=== PATIENT | female | born 1940 | race Caucasian/White ===

== ENCOUNTER 2020-01-07 18:53 | Emergency (ER) | payer MEDICARE, BC, SELFPAY ==
[2020-01-07 19:08] VITALS: BP 149/67; PULSE 82; RESP 20; TEMP 36.9; O2SAT 100
--- NOTE | 2020-01-07 19:34 | ED.GENADULT ---
HPI - General Adult General Chief complaint: Wound/Laceration Stated complaint: wasp sting Time Seen by Provider: 01/07/20 19:00 Source: patient Mode of arrival: ambulatory Limitations: no limitations History of Present Illness HPI narrative: Patient presents for evaluation of his left hand and distal left forearm after being stung by a wasp around 1600 today. Swelling in the fingers started immediately after being stung by the wasp. Since that time swelling has migrated up through the proximal left forearm. She denies any fever, chills, nausea, vomiting, difficulty breathing. She states she has chronic problems swallowing as she had resection of her tongue secondary to cancer. She currently has a G-tube. She states she was stung by a wasp several weeks ago and did not have a significant overreaction. She has not taken any medications to assist with her symptoms. She is not diabetic. She is right hand dominant. Denies loss of ROM. She describes the pain as sore and without numerical rating ascribed. Related Data Home Medications Medication Instructions Recorded Confirmed metoprolol succinate [Toprol XL] 10 mg PO DAILY 01/07/20 01/07/20 Allergies Allergy/AdvReac Type Severity Reaction Status Date / Time No Known Allergies Allergy Verified 01/07/20 18:59 Review of Systems Review of Systems: Narrative: CONSTITUTIONAL: Denies fever, chills, or sweats. EYES: Denies visual changes, redness, or discharge. ENT: Denies rhinorrhea, congestion, sore throat, or otalgia. CARDIOVASCULAR: Denies chest pain, palpitations, or edema. RESPIRATORY: Denies cough or dyspnea. GASTROINTESTINAL: Denies abdominal pain, nausea, vomiting, or diarrhea. GENITOURINARY: Denies dysuria or hematuria. SKIN: Denies rash or itching. Reports erythema to left hand MUSCULOSKELETAL: Denies back pain, joint pain. Reports left hand pain and swelling. NEUROLOGIC: Denies headache, numbness, dizziness, or weakness. PSYCHIATRIC: Denies anxiety or depression. [facility] Past Medical History Medical History (Updated 01/07/20 @ 19:41 by Reddy Carlton, LESLI, ) Cancer of tongue Hypertension Uses feeding tube Surgical History Surgical History History of intravascular stent placement Family History Family History Father Family history of cardiovascular disease Mother Family history of lung cancer Social History Social History Smoking status: Former smoker Alcohol intake: current Gender identity (if verbalized by the patient): Female Exam Narrative: Exam Narrative: GENERAL: Well-appearing, well-nourished, and in no acute distress. HEAD: Normocephalic, atraumatic. EYES: PERRLA and EOMI. ENT: Nares clear, no rhinorrhea or epistaxis. Mucous membranes moist. Oropharynx without tonsillar hypertrophy exudate or other lesions. Bilateral TMs pearly wilkins nonbulging NECK: Supple. No adenopathy or masses. No carotid bruits or JVD CHEST: Clear to auscultation. No respiratory distress. No wheezes rales or rhonchi HEART: Regular rate and rhythm. No murmur heard. Normal peripheral pulses. ABDOMEN: Soft, nontender, nondistended, normal active bowel sounds. EXTREMITIES: Normal range of motion. Trace nonpitting edema noted to dorsal aspect of the left hand and all digits of the left hand, extending through the distal 1/3 of left forearm SKIN: Warm, dry, no rash. Mild erythema noted to left hand and distal left forearm NEURO: No focal deficits. Alert and oriented x3. PSYCH: Normal mood and affect. Course Vital Signs Vital signs: Vital Signs Temperature 36.9 C 01/07/20 19:08 Pulse Rate 82 01/07/20 19:08 Respiratory Rate 20 01/07/20 19:08 Blood Pressure 149/67 H 01/07/20 19:08 Pulse Oximetry 100 01/07/20 19:08 Temperature 36.9 C 01/07/20 19:08 P
[2020-01-07] MEDS: methylPREDNISolone SOD SUCC 125 MG VIAL IM (19:39)
== END 2020-01-07 19:46 | disposition home or self-care (01) ==
PROVIDERS: Emergency Provider Nurse Practitioner; PCP Nurse Practitioner Family
DX: T63.461A Toxic effect of venom of wasps, accidental (unintentional), initial encounter (principal); Z87.891 Personal history of nicotine dependence; I10 Essential (primary) hypertension; Z85.810 Personal history of malignant neoplasm of tongue; Z93.1 Gastrostomy status
CPT/HCPCS: 96372; 99213; G0463; J2930

== ENCOUNTER 2020-07-12 22:33 | Inpatient (IN) | payer MEDICARE, BC, SELFPAY ==
--- NOTE | ~2020-07-12 | MR_ITS ---
EXAMINATION: MR MRCP wo/w con/w 3D wo ind DATE: 07/13/2020 15:14 INDICATION: Recurrent pancreatitis. Abdominal pain. TECHNIQUE: Magnetic resonance imaging (MRI) of the abdomen was performed without and with 10 mL Multi Mani intravenous contrast. Sequences included coronal T2-weighted FS FSE, coronal T2-weighted FSE, a xial T1-weighted LAVA, coronal FS FIESTA, axial dual-echo T1-weighted SPGR, coronal lava-FLEX, sagitt al T2-weighted FSE, axial T2-weighted FSE, and axial DWI. Thick-slab T2-weighted FSE images were obta ined for magnetic resonance cholangiopancreatography (MRCP). Maximum intensity projection 3-D reconst ructions of the volumetric data were created by the technologist. Postcontrast sequences included cor onal LAVA-flex and time course of axial T1-weighted LAVA. COMPARISON: CT abdomen and pelvis 07/12/2020 FINDINGS: ABDOMEN MRI: There are small pleural effusions. The liver is normal. The gallbladder is normal in siz e. The spleen is normal. The pancreas enhances throughout. The pancreatic duct is dilated. There is e xtensive edema and free fluid in the retroperitoneum. These findings are consistent with pancreatitis . There is a small volume of ascites. The adrenal glands are normal. There are cysts in the kidneys m easuring up to 11 mm on the right. There are no dilated loops of bowel. The gastrojejunostomy tube is noted. There are no pathologically enlarged lymph nodes. ABDOMEN MRCP: The common duct is normal and measures 7 mm. No choledocholithiasis. IMPRESSION: 1. Worsened acute interstitial pancreatitis. 2. Worsened small pleural effusions. 3. Worsened small volume of ascites. Reviewed, dictated and finalized at location A.
--- NOTE | ~2020-07-12 | US_ITS ---
EXAMINATION: US abdomen limited EXAM DATE: 07/15/2020 08:27 INDICATION: Acute pancreatitis. TECHNIQUE: Multiple grayscale and Doppler images of the abdomen right upper quadrant were obtained (b y a technologist who performed the scan) and subsequently reviewed. Correlation is made to CT 07/13/19. FINDINGS: The pancreatic head and body are normal in appearance. The pancreatic tail is not visualized. Please note that uncomplicated acute pancreatitis typically has no ultrasound findings. The liver has marija l echogenicity and contour. There are no focal liver lesions identified. There is no evidence of i ntrahepatic biliary duct dilation. Portal venous flow was seen in the hepatopedal, normal direction and has normal Doppler waveform. No right-sided hydronephrosis. Common bile duct measures 7 mm, which is normal for age. The gallbladder wall is normal in thickness, with expected amount of distention. There is trace pericholecystic fluid. There are poorly calcifie d gallstones. Technologist performing exam reports patient did not demonstrate sonographic Hudson's sign. Please note that this sign is less reliable in patients who have received pain medication. IMPRESSION: Cholelithiasis, trace pericholecystic fluid likely reactive from pancreatitis. Reviewed, dictated and finalized at location A. IMPRESSION: Cholelithiasis, trace pericholecystic fluid likely reactive from pa ncreatitis.
--- NOTE | ~2020-07-12 | CT_ITS ---
EXAMINATION: CT abdomen pelvis w con DATE: 07/13/2020 00:06 INDICATION: Abdominal pain. Pancreatitis. TECHNIQUE: Computed tomography (CT) of the abdomen and pelvis was performed with 100 mL Omnipaque 350 intravenous contrast. Automated exposure control and iterative reconstruction technique were employe d. The dose-length product was 163.34 mGy-cm. COMPARISON: CT abdomen and pelvis 10/28/2018 FINDINGS: The visualized portions of the lung bases demonstrate mild atelectasis. There is a trace ri ght pleural effusion. The heart size is normal. There are coronary artery calcifications. No pericard ial effusion. The liver and gallbladder are normal. There is a 4 mm lesion in the spleen, likely marti gn. There is edema in the head of the pancreas. The pancreatic duct is mildly dilated. There is fat s tranding and free fluid around the pancreas. These findings are consistent with pancreatitis. The adr enal glands are normal. There is cortical thinning of the kidneys. There are cysts in the kidneys gina suring up to 8 mm on the right. There is a gastrojejunostomy tube in expected position. There are no dilated loops of bowel. The appendix is not visualized. There are no pathologically enlarged lymph no bobbi. There is trace pelvic ascites. There is moderate lumbar spondylosis. There is dextroscoliosis of thoracolumbar spine. IMPRESSION: 1. Acute interstitial pancreatitis. Reviewed, dictated and finalized at location A. FOREMAN
[2020-07-12 22:41] VITALS: BP 172/54; PULSE 58; RESP 16; TEMP 36.4; O2SAT 96
--- NOTE | 2020-07-12 23:02 | ED.ABDPAIN ---
HPI - Abdominal Pain General Chief Complaint: Abdominal Pain <Antonio Thomas MD - Last Filed: 07/13/20 00:08> Stated Complaint: abd pain <Antonio Thomas MD - Last Filed: 07/13/20 00:08> Time Seen by Provider: 07/12/20 22:57 <Antonio Thomas MD - Last Filed: 07/13/20 00:08> Source: patient <Antonio Thomas MD - Last Filed: 07/13/20 00:08> Mode of arrival: EMS <Antonio Thomas MD - Last Filed: 07/13/20 00:08> Limitations: clinical condition <Antonio Thomas MD - Last Filed: 07/13/20 00:08> History of Present Illness HPI narrative: 80-year-old female Somewhat limited historian Patient has a history of head neck cancer and because of swallowing problems has a feeding tube She complains of diffuse pains across her mid abdomen starting today She vomited brownish material 3 times without relief She does not have a fever she has not bloated or distended she does not have diarrhea or constipation, or any urinary symptoms Patient states it is the same thing as last time Last time she was here was apparently for a wasp sting at the time before that was pancreatitis <Antonio Thomas MD - Last Filed: 07/13/20 00:08> Related Data Home Medications: Home Medications Medication Instructions Recorded Confirmed metoprolol succinate [Toprol XL] 10 mg PO DAILY 01/07/20 01/07/20 <Antonio Thomas MD - Last Filed: 07/13/20 00:08> Allergies/Adverse Reactions: Allergies Allergy/AdvReac Type Severity Reaction Status Date / Time No Known Allergies Allergy Verified 07/12/20 22:49 <Antonio Thomas MD - Last Filed: 07/13/20 00:08> Review of Systems Review of Systems: All systems reviewed & are unremarkable except as noted in HPI and below <Antonio Thomas MD - Last Filed: 07/13/20 00:08> Constitutional: Constitutional: Denies chills, Reports fatigue, Denies fever(s), Denies headache(s) and Reports weakness <Antonio Thomas MD - Last Filed: 07/13/20 00:08> Eyes: Eyes: Reports no additional eye complaints and Denies change in vision <Antonio Thomas MD - Last Filed: 07/13/20 00:08> ENT: Reports dysphagia, Denies headache(s), Denies epistaxis and Denies nasal congestion <Antonio Thomas MD - Last Filed: 07/13/20 00:08> Comments: Chronic hoarseness <Antonio Thomas MD - Last Filed: 07/13/20 00:08> Cardiovascular: Cardiovascular: Denies chest pain, Denies leg edema, Denies palpitations and Denies dyspnea <Antonio Thomas MD - Last Filed: 07/13/20 00:08> Respiratory: Respiratory: Denies cough, Denies dyspnea and Denies wheezing <Antonio Thomas MD - Last Filed: 07/13/20 00:08> Gastrointestinal: Gastrointestinal: Reports abdominal pain, Denies diarrhea, Reports nausea and Reports vomiting <Antonio Thomas MD - Last Filed: 07/13/20 00:08> Genitourinary: Genitourinary: Denies hematuria, Denies urinary frequency and Denies dysuria <Antonio Thomas MD - Last Filed: 07/13/20 00:08> Musculoskeletal: Musculoskeletal: Denies deformity, Denies arthralgias, Denies joint swelling, Denies muscle weakness and Denies numbness <Antonio Thomas MD - Last Filed: 07/13/20 00:08> Integumentary/Breasts: Skin/Breast: Denies rash and Denies wounds <Antonio Thomas MD - Last Filed: 07/13/20 00:08> Neurologic: Denies headache(s), Denies focal weakness, Denies numbness and Denies weakness <Antonio Thomas MD - Last Filed: 07/13/20 00:08> Psychiatric: Psychiatric: Reports no additional psychiatric complaints <Antonio Thomas MD - Last Filed: 07/13/20 00:08> Endocrine: Endocrine: Denies fatigue and Denies palpitations <Antonio Thomas MD - Last Filed: 07/13/20 00:08> Hematologic/Lymphatic: Hematologic/Lymphatic: Denies easy bleeding and Denies easy bruising <Antonio Thomas MD - Last Filed: 07/13/20 00:08> [facility] Past Medical History Medical History: Medical History (Updated 07/13/20 @ 01:52 by Sly Arce MD) Cancer of tongue Hypertension Uses feeding tube <Antonio Thomas,
[2020-07-12 23:21] LABS: Basophils Percent Auto 0.2 % (0.2-1.2); Eosinophils Absolute Auto 0.1 K/mm3 (0-0.3); Eosinophils Percent Auto 0.4 % (0-4.4); Hematocrit 47.3 % (37.0-47.0); Hemoglobin 15.2 g/dL (12.0-15.0); Immature Granulocyte Absolute 0.09 K/mm3 (0.00-0.031); Immature Granulocyte Percent A 0.4 % (0-0.5); Immature Platelet Fraction Pct 12.9 % (0.9-11.2); Lymphocytes Absolute Auto 0.56 K/mm3 (0.9-3.2); Lymphocytes Percent Auto 2.5 % (18.3-44.2); Mean Corpuscular HGB Conc 32.1 g/dl (32-36); Mean Corpuscular Hemoglobin 27.6 pg (26-34); Mean Platelet Volume 11.5 fl (7.4-10.4); Monocytes Percent Auto 4.4 % (2.6-8.5); Neutrophils Absolute Auto 20.9 K/mm3 (1.3-6.7); Neutrophils Percent Auto 92.1 % (45.5-73.1); Platelet Count Result 290 k/mm3 (150-375); Red Cell Distribution Width 12.2 % (11.5-14.5); White Blood Count 22.7 K/mm3 (4.5-10.0)
[2020-07-12 23:26] VITALS: BP 109/94; PULSE 59; RESP 16; O2SAT 99
[2020-07-12 23:26] LABS: Add Urine Microscopic? YES; Appearance Urine Cloudy (Clear); Bacteria Urine Trace /hpf; Bilirubin Urine Negative (Negative); Color Urine Amber (Yellow); Glucose Urine UA Negative (Negative); Ketones Urine Trace mg/dL (Negative); Leukocyte Esterase Ur 3+ LEU/UL (Negative); Mucus Urine Rare /lpf; Nitrate Urine Negative (Negative); Protein Urine 2+ mg/dL (Negative); Specific Grav Ur 1.028 (1.001-1.035); Squamous Epithelial Cell Urine Many /hpf (Few); Urobilinogen Urine Negative mg/dL (<2.0); WBC Urine 51-75 /hpf
[2020-07-12 23:31] LABS: Alanine Aminotransferase 14 U/L (4-35); Albumin Level 4.4 g/dL (3.5-5.1); Alkaline Phosphatase 105 U/L (38-126); Anion Gap 5 mmol/L (8-16); Aspartate Amino Transferase 39 U/L (14-36); Bilirubin,Total 0.6 mg/dL (0.2-1.3); Blood Urea Nitrogen 22 mg/dL (7-17); Calcium 9.2 mg/dL (8.4-10.2); Carbon Dioxide 32 mmol/L (22-30); Chloride 101 mmol/L (98-107); Estimated CRCL calculation 42 ml/min; Estimated Glomerular Filt Rate > 60; Glucose 150 mg/dL (65-105); Potassium 4.3 mmol/L (3.4-5.0); Sodium 138 mmol/L (137-145)
[2020-07-12] MEDS: fentaNYL CITRATE INJ (*CRX) 100 MCG/2 ML VIAL 50 MCG IV PUSH (23:47)
[2020-07-12] MEDS: BELLADONNA ALK/PHENOB ELIX 10 ML, MAG HYDROX/ALUMINUM HYD/SIMETH 30 ML, LIDOCAINE HCL 2... PO (23:47)
[2020-07-12 23:54] LABS: Blood Urine Negative (Negative)
[2020-07-13] VITALS (20 sets, daily range): BP systolic 126–162; BP diastolic 42–78; PULSE 60–79; RESP 9–21; TEMP 36.1–37; O2SAT 91–100; BMI 20.9
[2020-07-13 00:22] LABS: Lipase > 40000 U/L (23-300)
[2020-07-13] MEDS: LACTATED RINGERS 1,000 ML 999 ML IV CONT (01:23)
[2020-07-13] MEDS: HYDROmorphone HCL INJ (*CRX) 1 MG/ML SYR IV PUSH (01:40)
--- NOTE | 2020-07-13 03:51 | PM.IMHP ---
H&P: HPI History of Present Illness Date/Time: 07/13/20 03:51 Chief Complaint: abdominal pain Narrative: This is a 80 year old female with known history of previous tongue cancer who is known to have a PEG tube who normally consumes 4-5 Ensures daily and tonight presented to the hospital with a complaint of diffuse abdominal pain since yesterday afternoon. Associated symptoms included nausa and #3 episodes of vomiting. The patient has a history of previous pancreatitis. She denies any extensive history of alcoholism. The [facility] and found to have an elevated lipase of >40,[address] abd/pelvis demonstrated.... The patient can't tell me the cause of her previous pancreatitis episode. She does mention that about 2 weeks ago she had similar abdominal pain which resolved on its own. She denies any recent abdominal trauma, fever, chills, coughing, headache, chest pain, palpitations, dysuria, hematuria, diarrhea or LE swelling. No other complaints. Review of Systems Review of Systems: All systems reviewed & are unremarkable except as noted in HPI and below PMFSH Past Medical History Medical History Abdominal pain Abnormal findings on imaging of biliary tract Cancer of tongue Hypertension Uses feeding tube Surgical History Surgical History History of intravascular stent placement PEG (percutaneous endoscopic gastrostomy) status Family History Family History Father Family history of cardiovascular disease Mother Family history of lung cancer Social History Social History Smoking status: Former smoker Alcohol intake: never Substance use: never Substance use type: does not use Gender identity (if verbalized by the patient): Female Spiritual care concerns: No Meds Home Medications and Allergies Home Medications Medication Instructions Recorded Confirmed Type aspirin [Adult Aspirin EC Low 81 mg PO DAILY 07/13/20 07/13/20 History Strength] metoprolol succinate 25 mg PO DAILY 07/13/20 07/13/20 History zolpidem [Ambien] 5 mg PO HS PRN 07/13/20 07/13/20 History Allergies Allergy/AdvReac Type Severity Reaction Status Date / Time No Known Allergies Allergy Verified 07/14/20 00:51 Vital Signs Vital Signs - 24 hr 07/12/20 22:41 07/12/20 23:26 07/13/20 00:17 Temperature 36.4 C L 36.4 C L Pulse Rate 58 L 59 L Respiratory Rate 16 16 Blood Pressure 172/54 H 109/94 H Pulse Oximetry 96 99 07/13/20 01:28 07/13/20 02:10 07/13/20 03:36 Temperature 36.4 C L Pulse Rate 65 67 Respiratory Rate 12 17 Blood Pressure 162/59 H 140/58 L Pulse Oximetry 99 95 Exam Const: General: cooperative, alert, awake, acute distress mild and ill appearing Nutritional Appearance: well nourished Orientation/consciousness: patient oriented x3 HENMT: Head: normal to inspection General nose exam: Normal external nose present Face and sinus: normal facial exam Mouth: Yes Normal oral and palatal mucosa present and Yes oropharynx normal Eyes: Pupils: Equal, round and reactive pupils present EOM: EOMs intact bilaterally Neck: Neck: supple and no JVD Thyroid: thyroid normal Lymphatic: lymphadenopathy not noted Resp: Effort & Inspection: normal respiratory effort Auscultation: clear to auscultation bilaterally Cardio: Rate: regular rate Rhythm: regular rhythm Heart sounds: no murmurs GI: Inspection: normal to inspection and other (PEG tube in place++ ) GI Palp: Yes abdominal tenderness (Diffuse tenderness w/ palpation++ ) Auscultation: normal bowel sounds Rectal Exam: deferred Skin: General skin exam: normal color and no rashes or lesions noted Neuro: General: patient oriented x3 Cranial nerves: Yes CN's II-XII intact bilaterally and Yes Equal
[2020-07-13] MEDS: HYDROmorphone HCL INJ (*CRX) 1 MG/ML SYR 0.5 MG IV PUSH ×4 (04:07→21:12)
--- NOTE | 2020-07-13 04:49 | ADMGEN ---
This patient, Darcy Bonilla, was admitted to 2 Medical Room 253- @ 0445. Patient/family oriented to hospital policies and general routines including ID bracelet, bed and alarms, visiting hours, pain management, procedures, bathroom and other care routines, personal items, smoking policy, room service/diet, and visiting hours. Information on how to activate the Rapid Response Team has been discussed. Patient/Family are encouraged to report perceived risks to care and to ask questions if they do not understand what they are told or what they should do.
[2020-07-13] MEDS: SODIUM CHLORIDE 0.9% IV 1,000 ML 125 ML IV CONT (05:21)
[2020-07-13 05:48] LABS: Basophils Percent Auto 0.1 % (0.2-1.2); Eosinophils Percent Auto 0.1 % (0-4.4); Hematocrit 40.2 % (37.0-47.0); Hemoglobin 13.2 g/dL (12.0-15.0); Immature Granulocyte Absolute 0.07 K/mm3 (0.00-0.031); Immature Granulocyte Percent A 0.3 % (0-0.5); Lymphocytes Absolute Auto 0.61 K/mm3 (0.9-3.2); Mean Corpuscular HGB Conc 32.8 g/dl (32-36); Mean Corpuscular Hemoglobin 28.1 pg (26-34); Mean Corpuscular Volume 85.7 fl (80-100); Mean Platelet Volume 11.5 fl (7.4-10.4); Monocytes Absolute Auto 0.8 K/mm3 (0.1-0.6); Monocytes Percent Auto 4.1 % (2.6-8.5); Neutrophils Absolute Auto 18.6 K/mm3 (1.3-6.7); Neutrophils Percent Auto 92.4 % (45.5-73.1); Platelet Count Result 339 k/mm3 (150-375); Red Blood Count 4.69 M/mm3 (4.2-5.4); Red Cell Distribution Width 12.3 % (11.5-14.5); White Blood Count 20.2 K/mm3 (4.5-10.0)
[2020-07-13 06:00] LABS: Anion Gap 3 mmol/L (8-16); Blood Urea Nitrogen 20 mg/dL (7-17); Calcium 8.1 mg/dL (8.4-10.2); Carbon Dioxide 30 mmol/L (22-30); Chloride 102 mmol/L (98-107); Estimated CRCL calculation 49 ml/min; Estimated Glomerular Filt Rate > 60; Glucose 136 mg/dL (65-105); Magnesium 1.8 mg/dL (1.6-2.3); Potassium 4.3 mmol/L (3.4-5.0); Sodium 135 mmol/L (137-145)
[2020-07-13 06:02] LABS: Cholesterol 207 mg/dL (0-200); HDL Direct 62 mg/dL; Triglycerides 143 mg/dL (<150)
[2020-07-13 06:13] LABS: LDL Cholesterol Direct 111 mg/dL
[2020-07-13 06:29] LABS: Lipase 11569 U/L (23-300)
--- NOTE | 2020-07-13 12:47 | WPDGICN ---
Assessment and Plan Assessment and plan (1) Acute pancreatitis: Qualifiers: Acute pancreatitis complication: unspecified Pancreatitis type: other Qualified Code(s): K85.80 - Other acute pancreatitis without necrosis or infection Code(s): K85.90 - Acute pancreatitis without necrosis or infection, unspecified Status: Acute Assessment and Plan: npo for now, trend liver enzymes will get MRCP to assess pancreas and also biliary system, previous hospitalization had GB sludge which could have been reason of pancreatitis ask surgery to see (2) Leukocytosis: Code(s): D72.829 - Elevated white blood cell count, unspecified Status: Acute Assessment and Plan: probably reactive from pancreatitis but also dirty urine and started on iv anbitiocs by primary (3) Nausea and vomiting in adult: Code(s): R11.2 - Nausea with vomiting, unspecified Status: Acute Assessment and Plan: improved (4) Cancer of tongue: Code(s): C02.9 - Malignant neoplasm of tongue, unspecified Status: Chronic Assessment and Plan: patient says that last 2 months did not have to use g-tube probably I can remove it as outpatient after acute pancreatitis resolves (5) Hypertension: Code(s): I10 - Essential (primary) hypertension Status: Chronic (6) PEG (percutaneous endoscopic gastrostomy) status: Code(s): Z93.1 - Gastrostomy status Status: Acute (7) Abnormal urinalysis: Code(s): R82.90 - Unspecified abnormal findings in urine Status: Acute Assessment and Plan: awaiting culture, on abx GI Consult Note Consult date/time: 07/13/20 12:47 Reason for consult: recurrent pancreatitis HPI: Darcy Bonilla is a 80 year old female with history of previous tongue cancer ~ 2 years ago s/p surgery and radiation, she has a PEG tube since then but says that last 2 months did not have to use it as she is drinking ensure by mouth. She also had pancreatitis 2019 admitted here, imaging reviewed and showed GB sludge in ultrasound and distended GB by CT scan, denies alcohol use and previous TG level normal. She came here with new onset of diffuse moderate abdominal pain with associated nausea and vomiting. Blood work showed lipase of >40,[address] abd/pelvis demonstrated normal liver and GB, acute interstitial pancreatitis, bili and alk phosp normal. She was admitted to hospital and feeling better now. She also is asking to have g-tube removed at some point. Review of Systems Constitutional: Constitutional: Denies chills Eyes: Eyes: Reports no additional eye complaints ENT: Reports system reviewed and no additional complaints, except as documented Cardiovascular: Cardiovascular: Reports no additional cardiovascular complaints Respiratory: Respiratory: Reports no additional respiratory complaints Gastrointestinal: Gastrointestinal: Reports abdominal pain, Reports nausea and Reports vomiting Genitourinary: Genitourinary: Denies flank pain Neurologic: Reports system reviewed and no additional complaints, except as documented Psychiatric: Psychiatric: Reports no additional psychiatric complaints [facility] Past Medical History Medical History (Updated 07/13/20 @ 12:57 by Toby Roberts MD) Cancer of tongue Hypertension Uses feeding tube Surgical History Surgical History (Updated 07/13/20 @ 12:57 by Toby Roberts MD) History of intravascular stent placement PEG (percutaneous endoscopic gastrostomy) status Family History Family History Father Family history of cardiovascular disease Mother Family history of lung cancer Social History Social History Smoking status: Former smoker Alcohol intake: never Substance use: never Substance use type: does not use Gender identity (if verbalized by the patien
--- NOTE | 2020-07-13 14:09 | PM.IMPN ---
Progress Note: A&P Assessment and Plan (1) Acute pancreatitis: Qualifiers: Acute pancreatitis complication: unspecified Pancreatitis type: other Qualified Code(s): K85.80 - Other acute pancreatitis without necrosis or infection Code(s): K85.90 - Acute pancreatitis without necrosis or infection, unspecified Status: Acute Assessment and Plan: Unclear etiology as TG WNL, no excessive alcohol intake. Possibly 2/[address] Roberts consulted and appreciate recommendations. He has consulted Dr. Grace given GB sludge on US in 10/2018. MRCP ordered as well Continue NPO, bowel rest Continue IV hydration Pain control w/ IV narcotic medications. Advance diet when clinically improving. Monitor CMP/lipase Appreciate recommendations from GI and General Surgery Monitor closely (2) Abnormal urinalysis: Code(s): R82.90 - Unspecified abnormal findings in urine Status: Acute Assessment and Plan: UA suggesting UTI. Empiric Rocephin started in ED. Patient has no urinary symptoms, although has an significant leukocytosis Continue IV ceftriaxone Await UCx results; tailor antibiotics to culture (3) Leukocytosis: Code(s): D72.829 - Elevated white blood cell count, unspecified Status: Acute Assessment and Plan: Secondary to acute pancreatitis and possible UTI. Monitor CBCd. Continue empiric treatment for UTI (4) Dehydration: Code(s): E86.0 - Dehydration Status: Acute Assessment and Plan: Continue IV hydration until tolerating diet (5) Hypertension: Code(s): I10 - Essential (primary) hypertension Status: Chronic Assessment and Plan: BP 150s sys; home meds held for now Monitor blood pressure. PRN IV hydralazine w/ parameters ordered. (6) Cancer of tongue: Code(s): C02.9 - Malignant neoplasm of tongue, unspecified Status: Chronic Assessment and Plan: stable. Subjective Date/time seen: 07/13/20 14:09 Interval history: Patient is a 80 year old female with known history of previous tongue cancer who is known to have a PEG tube who normally consumes 4-5 Ensures daily, previous episode of pancreatitis, and HTN who is seen in follow up for acute pancreatitis. Patient states she feels about the same, if not slightly better today; she just had IV pain medication. Pain is diffuse and radiates to her back. She has some nausea but no vomiting today. She is expecting to go to get an MRCP sometime soon. No other complaints. Denies f/c/s, cp/palpitations, sob/cough, dysuria, hematuria, cloudy urine, calf pain/swelling. Review of Systems Review of Systems: All systems reviewed & are unremarkable except as noted in HPI and below Exam Narrative: Exam Narrative: General: Patient resting supine in bed appearing to be in mild distress; wincing every once in awhile HEENT: Normocephalic, EOMI, oral mucosa moist. Cardiovascular: Rate and rhythm are regular. No notable murmur, rub, or gallop. Respiratory: Lungs clear to auscultation anterolateral ruiz. Non-labored breathing. Abdomen: guarding, diffuse tenderness to light palpation, non-distended, bowel sounds present. PEG tube noted. Extremities: Peripheral pulses intact. No edema. NTTP b/l calves Neuro: No focal neurological deficits. Speech is clear. Objective Data Vital Signs Vital Signs: Laboratory Tests 07/13/20 05:29 07/13/20 05:29 Intake/Output Intake/Output: Intake & Output 07/10/20 07/11/20 07/12/20 07/13/20 23:59 23:59 23:59 23:59 Intake Total 1050 Output Total 300 Balance 750 Meds/Results Medications: Active Medications Generic Name Dose Route Start Last Adm
[2020-07-13] MEDS: SODIUM CHLORIDE 0.9% IV 1,000 ML 75 ML IV CONT (15:28)
[2020-07-14] VITALS (7 sets, daily range): BP systolic 117–147; BP diastolic 50–61; PULSE 65–76; RESP 12–20; TEMP 36.7–37; O2SAT 98–99
--- NOTE | 2020-07-14 03:06 | PC.NURSE ---
Daylight Savings Time For Daylight Savings Time Ending in the Fall - Clocks are moved back. For Daylight Savings Time Beginning in the Spring - Clocks are moved ahead. For [facility], the time of change occurs at 0200 hrs. Time is taken from the fine dining server. This entry on the patient's chart recognizes the change in time reflected during documentation. Example: 2 entries for vital signs may be charted for 0200 hrs.
[2020-07-14 05:25] LABS: Basophils Percent Auto 0.2 % (0.2-1.2); Eosinophils Absolute Auto 0.3 K/mm3 (0-0.3); Eosinophils Percent Auto 1.7 % (0-4.4); Hematocrit 40.3 % (37.0-47.0); Hemoglobin 13.1 g/dL (12.0-15.0); Immature Granulocyte Absolute 0.07 K/mm3 (0.00-0.031); Immature Granulocyte Percent A 0.4 % (0-0.5); Lymphocytes Absolute Auto 0.65 K/mm3 (0.9-3.2); Lymphocytes Percent Auto 3.3 % (18.3-44.2); Mean Corpuscular HGB Conc 32.5 g/dl (32-36); Mean Corpuscular Hemoglobin 27.6 pg (26-34); Mean Corpuscular Volume 84.8 fl (80-100); Mean Platelet Volume 11.4 fl (7.4-10.4); Monocytes Absolute Auto 1.4 K/mm3 (0.1-0.6); Monocytes Percent Auto 7.2 % (2.6-8.5); Neutrophils Absolute Auto 17.3 K/mm3 (1.3-6.7); Neutrophils Percent Auto 87.2 % (45.5-73.1); Platelet Count Result 328 k/mm3 (150-375); Red Blood Count 4.75 M/mm3 (4.2-5.4); Red Cell Distribution Width 12.5 % (11.5-14.5); White Blood Count 19.8 K/mm3 (4.5-10.0)
[2020-07-14] MEDS: SODIUM CHLORIDE 0.9% IV 1,000 ML 75 ML IV CONT (05:30)
[2020-07-14] MEDS: HYDROmorphone HCL INJ (*CRX) 1 MG/ML SYR 0.5 MG IV PUSH ×2 (05:36→11:35)
[2020-07-14 05:42] LABS: Alanine Aminotransferase 8 U/L (4-35); Alkaline Phosphatase 77 U/L (38-126); Anion Gap 2 mmol/L (8-16); Aspartate Amino Transferase 24 U/L (14-36); Bilirubin,Total 0.4 mg/dL (0.2-1.3); Blood Urea Nitrogen 21 mg/dL (7-17); Calcium 7.6 mg/dL (8.4-10.2); Carbon Dioxide 28 mmol/L (22-30); Chloride 107 mmol/L (98-107); Estimated CRCL calculation 49 ml/min; Estimated Glomerular Filt Rate > 60; Glucose 106 mg/dL (65-105); Magnesium 1.9 mg/dL (1.6-2.3); Potassium 4.3 mmol/L (3.4-5.0); Sodium 137 mmol/L (137-145)
[2020-07-14 06:42] LABS: Lipase 2185 U/L (23-300)
--- NOTE | 2020-07-14 11:48 | WPDGIPROGNO ---
Progress Note: A&P Assessment and Plan (1) Acute pancreatitis: Qualifiers: Acute pancreatitis complication: unspecified Pancreatitis type: other Qualified Code(s): K85.80 - Other acute pancreatitis without necrosis or infection Code(s): K85.90 - Acute pancreatitis without necrosis or infection, unspecified Status: Acute Assessment and Plan: she is feeling better, less pain and no nausea will start liquid diet with her ensure by mouth as tolerated MRCP reviewed with worsened acute interstitial pancreatitis, worsened small pleural effusions and small volume of ascites. GB was ok (previous imaging showed sludge) (2) Nausea and vomiting in adult: Code(s): R11.2 - Nausea with vomiting, unspecified Status: Acute Assessment and Plan: resolved but will see if she can tolerate liquid diet antiemetics prn (3) Abdominal pain: Code(s): R10.9 - Unspecified abdominal pain Status: Acute (4) PEG (percutaneous endoscopic gastrostomy) status: Code(s): Z93.1 - Gastrostomy status Status: Acute Assessment and Plan: I won't remove it yet, she can always follow up in office as outpatient (5) Cancer of tongue: Code(s): C02.9 - Malignant neoplasm of tongue, unspecified Status: Chronic Subjective Date/time seen: 07/14/20 11:48 Interval history: pain is better and no more nausea, doing better and would like to drink Review of Systems Review of Systems: All systems reviewed & are unremarkable except as noted in HPI and below Exam Const: General: cooperative, alert and awake Nutritional Appearance: well nourished Orientation/consciousness: patient oriented x3 HENMT: Head: normal to inspection Eyes: Pupils: Equal, round and reactive pupils present EOM: EOMs intact bilaterally Neck: Neck: supple and no JVD Lymphatic: lymphadenopathy not noted Resp: Effort & Inspection: normal respiratory effort Auscultation: clear to auscultation bilaterally Cardio: Rate: regular rate Rhythm: regular rhythm Heart sounds: no murmurs GI: Inspection: normal to inspection GI Palp: Yes Soft to palpation Auscultation: normal bowel sounds Other: flex peg in place, site looks ok Skin: General skin exam: normal color and no rashes or lesions noted Neuro: General: patient oriented x3 Cranial nerves: Yes CN's II-XII intact bilaterally and Yes Equal, round and reactive pupils present Speech: normal speech Motor exam (neuro): 5/5 motor strength present throughout Sensory Exam: normal sensation Extrem: General: normal to inspection and no edema Psych: Mental Status: mental status grossly normal Affect: normal affect Objective Data Vital Signs Vital Signs: Vital Signs - 24 hr 07/13/20 16:45 07/13/20 22:00 07/14/20 01:35 Temperature 98.6 F 97.0 F L 98.1 F Pulse Rate 70 73 73 Respiratory Rate 20 20 20 Blood Pressure 144/76 H 126/54 L 147/55 H Pulse Oximetry 100 99 98 07/14/20 06:00 07/14/20 09:48 Temperature 98.3 F 98.0 F Pulse Rate 74 71 Respiratory Rate 20 16 Blood Pressure 144/61 H 143/52 H Pulse Oximetry 99 99 Intake/Output Intake/Output: Intake & Output 07/11/20 07/12/20 07/13/20 07/15/20 23:59 23:59 23:59 00:59 Intake Total 2050 1050 Output Total 300 550 Balance 1750 500 Meds/Results Medications: Active Medications Generic Name Dose Route Start Last Admin Trade Name Freq PRN Reason Stop Dose Admin Hydralazine HCl 10 mg 07/13/20 05:05 Hydralazine Hcl 20 Mg/Ml Vial IV PUSH 07/15/20 07:00 Q8H PRN see comment Hydromorphone HCl 0.5 mg 07/13/20 01:59 07/14/20 11:35 Hydromorphone Hcl Inj (*Crx) 1 Mg/Ml Syr IV PUSH 0.5 mg Q4H PRN Administration Pain Rated 7-10 Sodium Chloride 1,000 mls @ 75 mls/hr 07/13/20 02:00 07/14/20 05:30 Normal Saline Iv IV CONT 75 mls/hr .[id number] [place] Administration Ondansetron HCl 4 mg 07/13/20 01:59 Ondansetron Inj 4 Mg/2 Ml Vial IV PUSH
[2020-07-14] MEDS: IBUPROFEN IV 800 MG/200 ML 800 MG/200 ML BAG 400 MG IVPB ×2 (12:32→17:49)
[2020-07-14] MEDS: ENOXAPARIN 40 MG/0.4 ML SYRINGE SUB-Q (12:33)
--- NOTE | 2020-07-14 12:37 | PM.CNGS ---
Assessment and Plan Assessment and plan (1) Acute pancreatitis: Qualifiers: Acute pancreatitis complication: unspecified Pancreatitis type: other Qualified Code(s): K85.80 - Other acute pancreatitis without necrosis or infection Code(s): K85.90 - Acute pancreatitis without necrosis or infection, unspecified Status: Acute Assessment and Plan: improving. Patient still having pain in abdominal tenderness however. Agree with clear liquids. Liver function tests have been normal. MRCP and CT scan of the gallbladder have been negative. I will order an ultrasound of the gallbladder for tomorrow. If sludge remains I agree patient would benefit from laparoscopic cholecystectomy. At this point, however, there is no strong indication that this is biliary pancreatitis. Patient does drink at least 1 if not 2 shots of rum every day. (2) Abnormal findings on imaging of biliary tract: Code(s): R93.2 - Abnormal findings on diagnostic imaging of liver and biliary tract Status: Acute Assessment and Plan: Ultrasound imaging 2 years ago did show sludge of the gallbladder. (3) PEG (percutaneous endoscopic gastrostomy) status: Code(s): Z93.1 - Gastrostomy status Status: Acute Assessment and Plan: Not currently using but is in good position. (4) Cancer of tongue: Code(s): C02.9 - Malignant neoplasm of tongue, unspecified Status: Chronic Assessment and Plan: Status post resection and has dysphagia. Does not eat solid food but lives on Ensure and liquids. History of Present Illness Consult details Consult date: 07/14/20 Reason for consult: abdominal pain Requesting physician: Toby Roberts MD Narrative: The patient is a 80-year-old very nice lady admitted with severe abdominal pain and evidence of acute pancreatitis. Her initial lipase was over 40,000. CT scan showed acute interstitial pancreatitis as well. She was admitted actually on the evening of 07/12/2020, 2 days ago. Her lipase and abdominal pain have improved. Lipase today is down to 2185. Her white blood cell count was initially 25918. It has decreased to 19,800. patient is still having abdominal pain however. She was requesting Dilaudid when I was in her room. She had a severe case of acute pancreatitis 2 years ago in 2019. At that time, ultrasound of the gallbladder showed sludge. Patient did not have cholecystectomy at that time as she reported they gave her a medication to dissolve the sludge. She took it for about 3 months but then was never recommended again to have cholecystectomy. She has a significant history of cancer of the tongue which involved resection of most of her tongue. She has had numerous gastrostomy tubes. The current 1 still functions but she really does not use it as she has given up on eating any solid food. She only eats liquids and gets her nutrition primarily by drinking Ensure. She is considering having the G-tube removed. Her current episode of acute pancreatitis started the day of admission. She had diffuse pains across her abdomen. It was very similar to what occurred in 2019. She vomited at least 3 times without any improvement. Review of lab work shows no abnormalities in the liver function tests. Her CT scan showed a normal gallbladder without evidence of sludge. She had an MRCP yesterday. This did not show gallstones or common bile duct stones. No sludge was noted either. Patient does drink alcohol regularly. This is usually at least a shot or two of rum with coffee and kahlua. no excessive alcohol use. She is seen now in consultation regarding her acute pancreatitis and the potential for this to be biliary pancreatitis. Review of Systems Review of Systems: All systems reviewed & are unremarkable except as noted in HPI and below Constitutional: Constitutional: Denies chills and Denies fever(s) Cardiovascular: Cardiovascular: Denies alex
[2020-07-14] MEDS: KCL 20 MEQ/D5/0.45% SOD CHL 1,000 ML 80 ML IV CONT (13:19)
--- NOTE | 2020-07-14 14:12 | PM.IMPN ---
Progress Note: A&P Assessment and Plan (1) Acute pancreatitis: Qualifiers: Acute pancreatitis complication: unspecified Pancreatitis type: other Qualified Code(s): K85.80 - Other acute pancreatitis without necrosis or infection Code(s): K85.90 - Acute pancreatitis without necrosis or infection, unspecified Status: Acute Assessment and Plan: Unclear etiology although patient drinks 1-2 shots of rum daily and possibly 2/[address]ase [address] Roberts consulted and appreciate recommendations. He has consulted Dr. Grace given GB sludge on US in 10/2018. MRCP on 07/13 shows worsened pancreatitis. Clinically improved today. Tolerating CLD CLD per GI. Advance diet per GI/General Surgery Continue IV hydration Pain control w/ IV narcotic medications. Possible transition to PO pain meds tomorrow Monitor CMP/lipase Appreciate recommendations from GI and General Surgery Plans for US RUQ tomorrow per General Surgery Monitor closely (2) Abnormal urinalysis: Code(s): R82.90 - Unspecified abnormal findings in urine Status: Acute Assessment and Plan: UA suggesting UTI. Empiric Rocephin started in ED. Patient has no urinary symptoms, although has an significant leukocytosis. UCx negative; antibiotics d/c D/c IV rocephin Monitor for symptoms (3) Leukocytosis: Code(s): D72.829 - Elevated white blood cell count, unspecified Status: Acute Assessment and Plan: Likely reactive to acute pancreatitis. UCx negative Monitor CBCd. (4) Dehydration: Code(s): E86.0 - Dehydration Status: Acute Assessment and Plan: Continue IV hydration until tolerating diet (5) Hypertension: Code(s): I10 - Essential (primary) hypertension Status: Chronic Assessment and Plan: BP 120s sys; home meds held for now Monitor blood pressure. Agree with resuming home metoprolol tomorrow PRN IV hydralazine w/ parameters ordered. (6) Cancer of tongue: Code(s): C02.9 - Malignant neoplasm of tongue, unspecified Status: Chronic Assessment and Plan: stable. Subjective Date/time seen: 07/14/20 14:12 Interval history: Patient is a 80 year old female with known history of previous tongue cancer who is known to have a PEG tube who normally consumes 4-5 Ensures daily, previous episode of pancreatitis, and HTN who is seen in follow up for acute pancreatitis. Patient states she feels better today. Tolerating her CLD this afternoon thus far. No current abdominal pain. No N/v today. No other complaints. Denies f/c/s, cp/palpitations, sob/cough, dysuria, hematuria, cloudy urine, calf pain/swelling. Review of Systems Review of Systems: All systems reviewed & are unremarkable except as noted in HPI and below Exam Narrative: Exam Narrative: General: Patient sitting upright in bed drinking liquids at time of visit; no acute distress HEENT: Normocephalic, EOMI, oral mucosa moist. Cardiovascular: Rate and rhythm are regular. No notable murmur, rub, or gallop. Respiratory: Lungs clear to auscultation anterolateral ruiz. Non-labored breathing. Abdomen: mild guarding, diffuse tenderness to light palpation but improved since yesterday, non-distended, bowel sounds present. PEG tube noted. Extremities: Peripheral pulses intact. No edema. NTTP b/l calves Neuro: No focal neurological deficits. Speech is clear. Objective Data Vital Signs Vital Signs: Last Vital Signs Temp 98.1 F 07/14/20 14:00 Pulse 73 07/14/20 14:00 Resp 16 07/14/20 14:00 BP 129/52 L 07/14/20 14:00 Pulse Ox 99 07/14/20 14:00 Intake/Output Intake/Output: Intake & Output 07/11/20 07/12/20 07/13/20 07/15/20 2
[2020-07-14] MEDS: FAMOTIDINE 20 MG/2 ML VIAL IV PUSH (20:40)
[2020-07-15] VITALS (8 sets, daily range): BP systolic 99–145; BP diastolic 47–65; PULSE 66–75; RESP 14–20; TEMP 36.7–37; O2SAT 92–100; BMI 21.7
[2020-07-15] MEDS: KCL 20 MEQ/D5/0.45% SOD CHL 1,000 ML 80 ML IV CONT ×2 (02:36→19:54)
[2020-07-15] MEDS: HYDROmorphone HCL INJ (*CRX) 1 MG/ML SYR IV PUSH (02:38)
[2020-07-15 04:52] LABS: Hematocrit 34.4 % (37.0-47.0); Mean Corpuscular Hemoglobin 27.8 pg (26-34); Mean Corpuscular Volume 87.1 fl (80-100); Mean Platelet Volume 11.6 fl (7.4-10.4); Platelet Count Result 276 k/mm3 (150-375); Red Blood Count 3.95 M/mm3 (4.2-5.4); Red Cell Distribution Width 12.4 % (11.5-14.5); White Blood Count 15.3 K/mm3 (4.5-10.0)
[2020-07-15 05:04] LABS: Alanine Aminotransferase 8 U/L (4-35); Albumin Level 2.6 g/dL (3.5-5.1); Alkaline Phosphatase 63 U/L (38-126); Anion Gap 1 mmol/L (8-16); Aspartate Amino Transferase 22 U/L (14-36); Bilirubin,Total 0.4 mg/dL (0.2-1.3); Blood Urea Nitrogen 15 mg/dL (7-17); Calcium 7.2 mg/dL (8.4-10.2); Carbon Dioxide 26 mmol/L (22-30); Chloride 107 mmol/L (98-107); Estimated CRCL calculation 49 ml/min; Estimated Glomerular Filt Rate > 60; Glucose 112 mg/dL (65-105); Lipase 419 U/L (23-300); Magnesium 1.9 mg/dL (1.6-2.3); Sodium 134 mmol/L (137-145)
[2020-07-15] MEDS: IBUPROFEN IV 800 MG/200 ML 800 MG/200 ML BAG 400 MG IVPB (06:04)
--- NOTE | 2020-07-15 08:15 | PC.NURSE ---
To Radiology per stretcher
--- NOTE | 2020-07-15 08:31 | PC.NURSE ---
Pt retuned from Radiology.
[2020-07-15] MEDS: FAMOTIDINE 20 MG/2 ML VIAL IV PUSH ×2 (08:36→19:58)
[2020-07-15] MEDS: ENOXAPARIN 40 MG/0.4 ML SYRINGE SUB-Q (08:36)
[2020-07-15] MEDS: METOPROLOL SUCCINATE EXT REL 25 MG TABCR PO (08:37)
--- NOTE | 2020-07-15 11:17 | PM.PNGS ---
Progress Note: A&P Assessment and Plan (1) Acute biliary pancreatitis without infection or necrosis: Code(s): K85.10 - Biliary acute pancreatitis without necrosis or infection Status: Acute Assessment and Plan: ultrasound done this morning does show gallstones. I think it is reasonable to diagnosis this as acute biliary pancreatitis. Will plan to go ahead with laparoscopic cholecystectomy on Wednesday. All discuss this further with the patient. If all goes well, could probably go home . (2) Abdominal pain: Code(s): R10.9 - Unspecified abdominal pain Status: Acute Assessment and Plan: edge glue machine tender left lower quadrant. This is unusual for pancreatitis. Lipase white count all coming down as expected with resolving acute pancreatitis. (3) PEG (percutaneous endoscopic gastrostomy) status: Code(s): Z93.1 - Gastrostomy status Status: Chronic Assessment and Plan: Discussed with Dr. Grady. If patient wants G-tube removed, I can remove it in surgery. Subjective Subjective Date/Time Seen: 07/15/20 11:17 Patient reports: no new complaints, feels better, still having pain ( left lower quadrant), tolerating liquids well and afebrile Review of Systems Review of Systems: All systems reviewed & are unremarkable except as noted in HPI and below Constitutional: Constitutional: Denies anorexia, Denies chills, Denies fever(s) and Denies headache(s) Cardiovascular: Cardiovascular: Denies chest pain and Denies dyspnea Respiratory: Respiratory: Denies cough and Denies dyspnea Gastrointestinal: Gastrointestinal: Reports as per HPI, Reports abdominal pain, Denies nausea and Denies vomiting Neurologic: Denies confusion and Denies headache(s) Exam Const: General: comfortable and no acute distress; No confusion Orientation/consciousness: patient oriented x3 and No confusion GI: Inspection: non-distended and other ( G-tube in place) GI Palp: Yes Soft to palpation, Yes Tenderness to palpation present (GI) ( left lower quadrant tenderness), No Guarding due to palpation present (GI) and No Rebound tenderness present Auscultation: Hypoactive bowel sounds present Neuro: General: patient oriented x3, no focal motor deficits and No confusion Extrem: General: no calf tenderness and no edema Psych: Affect: normal affect Insight: Good insight present (Psych) Judgement: Good judgement present (Psych) Objective Data Vital Signs Vital Signs: Vital Signs - 24 hr 07/14/20 14:00 07/14/20 17:31 07/14/20 20:00 Temperature 36.7 C 36.9 C Pulse Rate 73 65 76 Respiratory Rate 16 16 12 Blood Pressure 129/52 L 117/50 L Pulse Oximetry 99 98 98 07/14/20 20:55 07/15/20 00:00 07/15/20 05:56 Temperature 37.0 C 37.0 C 36.8 C Pulse Rate 76 71 73 Respiratory Rate 12 14 14 Blood Pressure 141/59 H 139/51 L 99/47 L Pulse Oximetry 98 92 96 07/15/20 08:00 07/15/20 08:37 Temperature 36.8 C Pulse Rate 67 75 Respiratory Rate 16 Blood Pressure 128/50 L Pulse Oximetry 97 Intake/Output Intake/Output: Intake & Output 07/12/20 07/13/20 07/14/20 07/15/20 22:59 22:59 23:59 23:59 Intake Total 1400 Output Total 400 Balance 1000 Meds/Results Medications: Active Medications Generic Name Dose Route Start Last Admin Trade Name Freq PRN Reason Stop Dose Admin Acetaminophen 500 mg 07/14/20 11:51 Acetaminophen 500 Mg Tablet PO Q6H PRN Mild Pain (1-3) or Fever Enoxaparin Sodium 40 mg 07/15/20 09:00 07/15/20 08:36 Enoxaparin 40 Mg/0.4 Ml Syringe SUB-Q 40 mg DAILY [place] Administration Famotidine 20 mg 07/14/20 21:00 07/15/20 08:36 Famotidine 20 Mg/2 Ml Vial IV PUSH 20 mg Q12HR [place] Administration Hydromorphone HCl 1 mg 07/14/20 11:51 07/15/20 02:38 Hydromorphone Hcl Inj (*Crx) 1 Mg/Ml Syr IV PUSH 1 mg Q2H PRN Administration Pain Rated 7-10 Hydromorphone HCl 0.5 mg 07/14/20 11:51 Hydromorphone Hcl I
[2020-07-15] MEDS: IBUPROFEN IV 800 MG/200 ML 800 MG/200 ML BAG 200 MG IVPB ×2 (11:51→17:48)
--- NOTE | 2020-07-15 13:53 | PC.NURSE ---
Dr. Grace on floor requested sports writer to place and order that would allow pt to have regular ensure not ensure clear.
--- NOTE | 2020-07-15 16:50 | WPDGIPROGNO ---
Progress Note: A&P Assessment and Plan (1) Acute biliary pancreatitis without infection or necrosis: Code(s): K85.10 - Biliary acute pancreatitis without necrosis or infection Status: Acute Assessment and Plan: ultrasound reviewed and showed stones, normal bile duct she is feeling better surgery plan this Wednesday, tolerating liquid diet (2) Abdominal pain: Code(s): R10.9 - Unspecified abdominal pain Status: Acute Assessment and Plan: much improved, continue supportive care (3) Cancer of tongue: Code(s): C02.9 - Malignant neoplasm of tongue, unspecified Status: Chronic (4) PEG (percutaneous endoscopic gastrostomy) status: Code(s): Z93.1 - Gastrostomy status Status: Chronic Assessment and Plan: patient still would like to keep g-tube in place for now Subjective Date/time seen: 07/15/20 16:50 Interval history: she is feeling better today, tolerating liquids Review of Systems Review of Systems: All systems reviewed & are unremarkable except as noted in HPI and below Exam Const: General: cooperative, alert and awake Nutritional Appearance: well nourished Orientation/consciousness: patient oriented x3 HENMT: Head: normal to inspection Eyes: Pupils: Equal, round and reactive pupils present EOM: EOMs intact bilaterally Neck: Neck: supple and no JVD Lymphatic: lymphadenopathy not noted Resp: Effort & Inspection: normal respiratory effort Auscultation: clear to auscultation bilaterally Cardio: Rate: regular rate Rhythm: regular rhythm Heart sounds: no murmurs GI: Inspection: normal to inspection GI Palp: Yes Soft to palpation Auscultation: normal bowel sounds Other: flex peg in place, site looks ok Skin: General skin exam: normal color and no rashes or lesions noted Neuro: General: patient oriented x3 Cranial nerves: Yes CN's II-XII intact bilaterally and Yes Equal, round and reactive pupils present Speech: normal speech Motor exam (neuro): 5/5 motor strength present throughout Sensory Exam: normal sensation Extrem: General: normal to inspection and no edema Psych: Mental Status: mental status grossly normal Affect: normal affect Objective Data Vital Signs Vital Signs: Vital Signs - 24 hr 07/14/20 17:31 07/14/20 20:00 07/14/20 20:55 Temperature 98.4 F 98.6 F Pulse Rate 65 76 76 Respiratory Rate 16 12 12 Blood Pressure 117/50 L 141/59 H Pulse Oximetry 98 98 98 07/15/20 00:00 07/15/20 05:56 07/15/20 08:00 Temperature 98.6 F 98.2 F 98.2 F Pulse Rate 71 73 67 Respiratory Rate 14 14 16 Blood Pressure 139/51 L 99/47 L 128/50 L Pulse Oximetry 92 96 97 07/15/20 08:37 07/15/20 12:00 07/15/20 15:06 Temperature 98.0 F Pulse Rate 75 66 71 Respiratory Rate 16 18 Blood Pressure 123/54 L Pulse Oximetry 100 99 Intake/Output Intake/Output: Intake & Output 07/12/20 07/13/20 07/14/20 07/15/20 22:59 22:59 23:59 23:59 Intake Total 1840 Output Total 400 Balance 1440 Meds/Results Medications: Active Medications Generic Name Dose Route Start Last Admin Trade Name Freq PRN Reason Stop Dose Admin Acetaminophen 500 mg 07/14/20 11:51 Acetaminophen 500 Mg Tablet PO Q6H PRN Mild Pain (1-3) or Fever Hydrocodone Bitart/Acetaminophen 1 tab 07/15/20 11:26 Hydrocodone/Acetaminophen (*Crx) 5-325 Mg Tablet PO Q4H PRN Pain Rated 4-6 Hydrocodone Bitart/Acetaminophen 1 tab 07/15/20 11:26 Hydrocodone/Acetaminophen (*Crx) 7.5-325 Mg Tablet PO Q4H PRN Pain Rated 7-10 Enoxaparin Sodium 40 mg 07/15/20 09:00 07/15/20 08:36 Enoxaparin 40 Mg/0.4 Ml Syringe SUB-Q 40 mg DAILY [place] Administration Famotidine 20 mg 07/14/20 21:00 07/15/20 08:36 Famotidine 20 Mg/2 Ml Vial IV PUSH 20 mg Q12HR [place] Administration Hydromorphone HCl 1 mg 07/14/20 11:51 07/15/20 02:38 Hydromorphone Hcl Inj (*Crx) 1 Mg/Ml Syr IV PUSH 1 mg Q2H PRN Administratio
--- NOTE | 2020-07-15 17:15 | PM.IMPN ---
Progress Note: A&P Assessment and Plan (1) Acute pancreatitis: Qualifiers: Acute pancreatitis complication: unspecified Pancreatitis type: other Qualified Code(s): K85.80 - Other acute pancreatitis without necrosis or infection Code(s): K85.90 - Acute pancreatitis without necrosis or infection, unspecified Status: Deleted Assessment and Plan: Likely secondary biliary etiology given RUQ US today showing cholelithiasis. Patient also drinks 1-2 shots of rum daily. Lipase improving. Dr. Roberts consulted and appreciate recommendations. He has consulted Dr. Grace given GB sludge on US in 10/2018. MRCP on 07/13 shows worsened pancreatitis. Clinically improved today. Tolerating CLD but now not able to drink as much CLD with supplements per GI. Advance diet per GI/General Surgery Continue IV hydration for now; consider d/c once tolerating more PO Pain control w/ PO narcotic medications. IV narcotics if not tolerating PO Monitor CMP/lipase Appreciate recommendations from GI and General Surgery Monitor closely (2) Abnormal urinalysis: Code(s): R82.90 - Unspecified abnormal findings in urine Status: Deleted Assessment and Plan: UA suggesting UTI. Empiric Rocephin started in ED. Patient has no urinary symptoms, although has an significant leukocytosis. UCx negative; antibiotics d/c Monitor for symptoms (3) Leukocytosis: Code(s): D72.829 - Elevated white blood cell count, unspecified Status: Deleted Assessment and Plan: Likely reactive to acute pancreatitis. UCx negative Monitor CBCd. (4) Dehydration: Code(s): E86.0 - Dehydration Status: Deleted Assessment and Plan: Continue IV hydration until tolerating diet more (5) Hypertension: Code(s): I10 - Essential (primary) hypertension Status: Chronic Assessment and Plan: BP 120s sys; home meds held for now Monitor blood pressure. Continue home metoprolol PRN IV hydralazine w/ parameters ordered. (6) Cancer of tongue: Code(s): C02.9 - Malignant neoplasm of tongue, unspecified Status: Chronic Assessment and Plan: stable. Subjective Date/time seen: 07/15/20 17:15 Interval history: Patient is a 80 year old female with known history of previous tongue cancer who is known to have a PEG tube who normally consumes 4-5 Ensures daily, previous episode of pancreatitis, and HTN who is seen in follow up for acute pancreatitis. Patient states she feels better today. Denies any pain and tolerating CLD with ensures this afternoon thus far. No N/v today. Requesting hydrocortisone for her lips as they frequently get chapped. No other complaints. Denies f/c/s, cp/palpitations, sob/cough, dysuria, hematuria, cloudy urine, calf pain/swelling. Review of Systems Review of Systems: All systems reviewed & are unremarkable except as noted in HPI and below Exam Narrative: Exam Narrative: General: Patient sitting upright in bed drinking liquids at time of visit; no acute distress HEENT: Normocephalic, EOMI, oral mucosa moist. Cardiovascular: Rate and rhythm are regular. No notable murmur, rub, or gallop. Respiratory: Lungs clear to auscultation anterolateral ruiz. Non-labored breathing. Abdomen: mild guarding, diffuse tenderness to light palpation similar yesterday, non-distended, bowel sounds present. PEG tube noted. Extremities: Peripheral pulses intact. No edema. NTTP b/l calves Neuro: No focal neurological deficits. Speech is clear. Objective Data Vital Signs Vital Signs: Last Vital Signs Temp 98.0 F 07/15/20 12:00 Pulse 71 07/15/20 15:06 Resp 18 07/15/20 15:06 BP 123/54 L 03/15/21 12:00 Pulse Ox 99 07/15/20 15:06
[2020-07-16] VITALS (7 sets, daily range): BP systolic 125–174; BP diastolic 50–70; PULSE 60–70; RESP 12–20; TEMP 35.8–37; O2SAT 96–100
[2020-07-16 05:36] LABS: Hemoglobin 11.2 g/dL (12.0-15.0); Mean Corpuscular Hemoglobin 27.9 pg (26-34); Mean Corpuscular Volume 87.1 fl (80-100); Mean Platelet Volume 11.7 fl (7.4-10.4); Platelet Count Result 262 k/mm3 (150-375); Red Blood Count 4.02 M/mm3 (4.2-5.4); Red Cell Distribution Width 12.2 % (11.5-14.5); White Blood Count 11.1 K/mm3 (4.5-10.0)
[2020-07-16 05:51] LABS: Alanine Aminotransferase 9 U/L (4-35); Albumin Level 2.7 g/dL (3.5-5.1); Alkaline Phosphatase 65 U/L (38-126); Anion Gap 1 mmol/L (8-16); Aspartate Amino Transferase 23 U/L (14-36); Bilirubin,Total 0.3 mg/dL (0.2-1.3); Blood Urea Nitrogen 9 mg/dL (7-17); Calcium 7.6 mg/dL (8.4-10.2); Carbon Dioxide 28 mmol/L (22-30); Chloride 108 mmol/L (98-107); Estimated CRCL calculation 49 ml/min; Estimated Glomerular Filt Rate > 60; Glucose 101 mg/dL (65-105); Lipase 326 U/L (23-300); Magnesium 1.8 mg/dL (1.6-2.3); Potassium 3.5 mmol/L (3.4-5.0); Sodium 137 mmol/L (137-145)
[2020-07-16] MEDS: KCL 20 MEQ/D5/0.45% SOD CHL 1,000 ML 80 ML IV CONT ×2 (08:30→20:56)
[2020-07-16] MEDS: HYDROcodone/acetaminophen (*CRX) 5-325 MG TABLET 1 TAB PO ×2 (08:31→22:02)
[2020-07-16] MEDS: FAMOTIDINE 20 MG/2 ML VIAL IV PUSH ×2 (08:31→20:56)
[2020-07-16] MEDS: METOPROLOL SUCCINATE EXT REL 25 MG TABCR PO (08:31)
[2020-07-16] MEDS: ENOXAPARIN 40 MG/0.4 ML SYRINGE SUB-Q (09:20)
--- NOTE | 2020-07-16 11:09 | PC.NURSE ---
[employer] called Dr. Grace and made aware pt states she would like to pour her ensure clear in her feeding tube like she does at home when she is unable to eat. reports that is fine for pt to use ensure as she does at home.
--- NOTE | 2020-07-16 15:09 | P.PNIM_ITS ---
Progress Note: A&P Assessment and Plan (1) Acute pancreatitis: Qualifiers: Acute pancreatitis complication: unspecified Pancreatitis type: other Qualified Code(s): K85.80 - Other acute pancreatitis without necrosis or infection Code(s): K85.90 - Acute pancreatitis without necrosis or infection, unspecified Status: Deleted Assessment and Plan: Likely secondary biliary etiology given RUQ US today showing cholelithiasis. Patient also drinks 1-2 shots of rum daily. Lipase improving. * Dr. Grace Surgery consulted and will be undergoing lap kanyd tomorrow 07/17 due to acute biliary pancreatitis * Dr. Roberts consulted and agrees with surgery. Otherwise patient would like to keep PEG tube. * NPO after midnight for surgery. * Continue IV hydration for now since surgery tomorrow. * Pain control w/ PO narcotic medications. IV narcotics if not tolerating PO * Monitor CMP/lipase * Appreciate recommendations from GI and General Surgery * Monitor closely (2) Abnormal urinalysis: Code(s): R82.90 - Unspecified abnormal findings in urine Status: Deleted Assessment and Plan: UA suggesting UTI. Empiric Rocephin started in ED. Patient has no urinary symptoms, although has an significant leukocytosis. UCx negative; antibiotics d/c * Monitor for symptoms (3) Leukocytosis: Code(s): D72.829 - Elevated white blood cell count, unspecified Status: Deleted Assessment and Plan: Likely reactive to acute pancreatitis. UCx negative * Monitor CBCd. (4) Dehydration: Code(s): E86.0 - Dehydration Status: Deleted Assessment and Plan: * Continue IV hydration until tolerating diet more (5) Hypertension: Code(s): I10 - Essential (primary) hypertension Status: Chronic Assessment and Plan: BP 160/66 sys; home meds held for now * Monitor blood pressure. * Continue home metoprolol * PRN IV hydralazine w/ parameters ordered. (6) Cancer of tongue: Code(s): C02.9 - Malignant neoplasm of tongue, unspecified Status: Chronic Assessment and Plan: * stable. (7) Dysphagia: Code(s): R13.10 - Dysphagia, unspecified Status: Acute Assessment and Plan: Hx tongue cancer, has PEG tube in place which she takes Ensure from 4x per day. PEG tube is falling out and she does not want Dr. Glover to put another one in. * Explained the risks of aspiration and developing pneumonia. * She does have some dysphagia which is improving today. * I asked her if she would like to have speech therapy evaluate her due to her history of cancers status post radiation and risk for aspiration, but she denies at this time. * Aspiration precautions. Continue monitoring. Time Spent With Patient Time with patient: 25 - 35 minutes Subjective Date/time seen: 07/16/20 15:09 Interval history: Patient is a 80 year old female with known history of previous tongue cancer who is known to have a PEG tube who normally consumes 4-5 Ensures daily, previous episode of pancreatitis, and HTN who is seen in follow up for acute pancreatitis. Date of service 07/16/2020: Patient reports feeling better today. She was drinking some Ensure this morning and reported some coughing. She states that is normal for her in the mo
--- NOTE | 2020-07-16 15:09 | PM.IMPN ---
Progress Note: A&P Assessment and Plan (1) Acute pancreatitis: Qualifiers: Acute pancreatitis complication: unspecified Pancreatitis type: other Qualified Code(s): K85.80 - Other acute pancreatitis without necrosis or infection Code(s): K85.90 - Acute pancreatitis without necrosis or infection, unspecified Status: Deleted Assessment and Plan: Likely secondary biliary etiology given RUQ US today showing cholelithiasis. Patient also drinks 1-2 shots of rum daily. Lipase improving. Dr. Grace Surgery consulted and will be undergoing lap kandy tomorrow 07/17 due to acute biliary pancreatitis Dr. Roberts consulted and agrees with surgery. Otherwise patient would like to keep PEG tube. NPO after midnight for surgery. Continue IV hydration for now since surgery tomorrow. Pain control w/ PO narcotic medications. IV narcotics if not tolerating PO Monitor CMP/lipase Appreciate recommendations from GI and General Surgery Monitor closely (2) Abnormal urinalysis: Code(s): R82.90 - Unspecified abnormal findings in urine Status: Deleted Assessment and Plan: UA suggesting UTI. Empiric Rocephin started in ED. Patient has no urinary symptoms, although has an significant leukocytosis. UCx negative; antibiotics d/c Monitor for symptoms (3) Leukocytosis: Code(s): D72.829 - Elevated white blood cell count, unspecified Status: Deleted Assessment and Plan: Likely reactive to acute pancreatitis. UCx negative Monitor CBCd. (4) Dehydration: Code(s): E86.0 - Dehydration Status: Deleted Assessment and Plan: Continue IV hydration until tolerating diet more (5) Hypertension: Code(s): I10 - Essential (primary) hypertension Status: Chronic Assessment and Plan: BP 160/66 sys; home meds held for now Monitor blood pressure. Continue home metoprolol PRN IV hydralazine w/ parameters ordered. (6) Cancer of tongue: Code(s): C02.9 - Malignant neoplasm of tongue, unspecified Status: Chronic Assessment and Plan: stable. (7) Dysphagia: Code(s): R13.10 - Dysphagia, unspecified Status: Acute Assessment and Plan: Hx tongue cancer, has PEG tube in place which she takes Ensure from 4x per day. PEG tube is falling out and she does not want Dr. Glover to put another one in. Explained the risks of aspiration and developing pneumonia. She does have some dysphagia which is improving today. I asked her if she would like to have speech therapy evaluate her due to her history of cancers status post radiation and risk for aspiration, but she denies at this time. Aspiration precautions. Continue monitoring. Time Spent With Patient Time with patient: 25 - 35 minutes Subjective Date/time seen: 07/16/20 15:09 Interval history: Patient is a 80 year old female with known history of previous tongue cancer who is known to have a PEG tube who normally consumes 4-5 Ensures daily, previous episode of pancreatitis, and HTN who is seen in follow up for acute pancreatitis. Date of service 07/16/2020: Patient reports feeling better today. She was drinking some Ensure this morning and reported some coughing. She states that is normal for her in the morning and since she has been hospitalized a few days. She denies any productive sputum, chest congestion, shortness of breath at this time. She denies any fevers, chills, nausea, vomiting, abdominal pain, leg swelling, calf pain, chest pain, or any other symptoms at this time. Review of Systems Review of Systems: All systems reviewed & are unremarkable except as noted in HPI and below Ex
--- NOTE | 2020-07-16 16:56 | PM.PNGS ---
Progress Note: A&P Assessment and Plan (1) Acute biliary pancreatitis without infection or necrosis: Code(s): K85.10 - Biliary acute pancreatitis without necrosis or infection Status: Acute Assessment and Plan: Plan to proceed with laparoscopic cholecystectomy tomorrow under general anesthesia. I discussed the procedure risks and benefits with the patient again this morning. All questions were answered. She understands and agrees to go ahead. (2) Dysphagia: Code(s): R13.10 - Dysphagia, unspecified Status: Acute Assessment and Plan: May be tied in with her present illness of biliary pancreatitis. She will go ahead in use her G-tube for ensure feedings. We will leave G-tube in place for now. It can always be removed as an outpatient. 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 Would rather take her Ensure per her G-tube. Does not want G-tube removed at surgery. Review of Systems Review of Systems: All systems reviewed & are unremarkable except as noted in HPI and below Constitutional: Constitutional: Denies chills, Denies fever(s) and Denies headache(s) Cardiovascular: Cardiovascular: Denies chest pain and Denies dyspnea Respiratory: Respiratory: Denies cough and Denies dyspnea Gastrointestinal: Gastrointestinal: Reports as per HPI, Denies abdominal pain, Reports dysphagia, Denies nausea and Denies vomiting Neurologic: Denies confusion and Denies headache(s) Exam Const: General: comfortable and no acute distress; No confusion Orientation/consciousness: patient oriented x3 and No confusion GI: Inspection: non-distended and other (G-tube in good position unchanged) GI Palp: Yes Soft to palpation, Yes Tenderness to palpation present (GI) (Much less tender today. Now mostly in epigastric area), No Guarding due to palpation present (GI), No Hernia present, No Palpable mass present and No Rebound tenderness present Auscultation: normal bowel sounds Neuro: General: patient oriented x3, no focal motor deficits and No confusion Extrem: General: no calf tenderness and no edema Psych: Affect: normal affect Insight: Good insight present (Psych) Judgement: Good judgement present (Psych) Objective Data Vital Signs Vital Signs: Vital Signs - 24 hr 07/15/20 22:00 07/16/20 02:00 07/16/20 06:00 Temperature 36.8 C 36.8 C 37.0 C Pulse Rate 70 64 60 Respiratory Rate 20 18 20 Blood Pressure 145/58 H 160/66 H 174/61 H Pulse Oximetry 98 96 98 07/16/20 07:55 07/16/20 08:31 07/16/20 12:42 Temperature 35.8 C L 36.2 C L Pulse Rate 67 65 70 Respiratory Rate 14 12 Blood Pressure 173/55 H 140/70 Pulse Oximetry 97 98 Intake/Output Intake/Output: Intake & Output 07/13/20 07/14/20 07/15/20 07/16/20 22:59 23:59 23:59 23:59 Intake Total 3180 1700 Output Total 1300 700 Balance 1880 1000 Meds/Results Medications: Active Medications Generic Name Dose Route Start Last Admin Trade Name Freq PRN Reason Stop Dose Admin Acetaminophen 500 mg 07/14/20 11:51 Acetaminophen 500 Mg Tablet PO Q6H PRN Mild Pain (1-3) or Fever Hydrocodone Bitart/Acetaminophen 1 tab 07/15/20 11:26 07/16/20 08:31 Hydrocodone/Acetaminophen (*Crx) 5-325 Mg Tablet PO 1 tab Q4H PRN Administration Pain Rated 4-6 Hydrocodone Bitart/Acetaminophen 1 tab 07/15/20 11:26 Hydrocodone/Acetaminophen (*Crx) 7.5-325 Mg Tablet PO Q4H PRN Pain Rated 7-10 Emollient Ointment 1 applic 07/15/20 17:17 07/16/20 14:25 Petrolatum Oint 30 Gm Tube TOPICAL 1 applic Q24H PRN Administration lip irritation Enox[place]
--- NOTE | 2020-07-16 17:02 | WPDGIPROGNO ---
Progress Note: A&P Assessment and Plan (1) Acute biliary pancreatitis without infection or necrosis: Code(s): K85.10 - Biliary acute pancreatitis without necrosis or infection Status: Acute Assessment and Plan: she is feeling better lap kandy tomorrow lipase improved and overall better (2) Abdominal pain: Code(s): R10.9 - Unspecified abdominal pain Status: Acute Assessment and Plan: resolved (3) Dysphagia: Code(s): R13.10 - Dysphagia, unspecified Status: Acute Assessment and Plan: she is complaining of dysphagia again, ok to use g-tube I can see her as outpatient in few weeks and if still an issue, then can do EGD to assess esophagus (4) Cancer of tongue: Code(s): C02.9 - Malignant neoplasm of tongue, unspecified Status: Chronic (5) PEG (percutaneous endoscopic gastrostomy) status: Code(s): Z93.1 - Gastrostomy status Status: Chronic Assessment and Plan: patient still would like to keep g-tube in place for now Subjective Date/time seen: 07/16/20 17:02 Interval history: she noted dysphagia again last couple of days and would like to use ensure by g-tube, overall feeling better Review of Systems Review of Systems: All systems reviewed & are unremarkable except as noted in HPI and below Exam Const: General: cooperative, alert and awake Nutritional Appearance: well nourished Orientation/consciousness: patient oriented x3 HENMT: Head: normal to inspection Eyes: Pupils: Equal, round and reactive pupils present EOM: EOMs intact bilaterally Neck: Neck: supple and no JVD Lymphatic: lymphadenopathy not noted Resp: Effort & Inspection: normal respiratory effort Auscultation: clear to auscultation bilaterally Cardio: Rate: regular rate Rhythm: regular rhythm Heart sounds: no murmurs GI: Inspection: normal to inspection GI Palp: Yes Soft to palpation Auscultation: normal bowel sounds Other: flex peg in place, site looks ok Skin: General skin exam: normal color and no rashes or lesions noted Neuro: General: patient oriented x3 Cranial nerves: Yes CN's II-XII intact bilaterally and Yes Equal, round and reactive pupils present Speech: normal speech Motor exam (neuro): 5/5 motor strength present throughout Sensory Exam: normal sensation Extrem: General: normal to inspection and no edema Psych: Mental Status: mental status grossly normal Affect: normal affect Objective Data Vital Signs Vital Signs: Vital Signs - 24 hr 07/15/20 22:00 07/16/20 02:00 07/16/20 06:00 Temperature 98.2 F 98.2 F 98.6 F Pulse Rate 70 64 60 Respiratory Rate 20 18 20 Blood Pressure 145/58 H 160/66 H 174/61 H Pulse Oximetry 98 96 98 07/16/20 07:55 07/16/20 08:31 07/16/20 12:42 Temperature 96.4 F L 97.1 F L Pulse Rate 67 65 70 Respiratory Rate 14 12 Blood Pressure 173/55 H 140/70 Pulse Oximetry 97 98 Intake/Output Intake/Output: Intake & Output 07/13/20 07/14/20 07/15/20 07/16/20 22:59 23:59 23:59 23:59 Intake Total 3180 1700 Output Total 1300 700 Balance 1880 1000 Meds/Results Medications: Active Medications Generic Name Dose Route Start Last Admin Trade Name Freq PRN Reason Stop Dose Admin Acetaminophen 500 mg 07/14/20 11:51 Acetaminophen 500 Mg Tablet PO Q6H PRN Mild Pain (1-3) or Fever Hydrocodone Bitart/Acetaminophen 1 tab 07/15/20 11:26 07/16/20 08:31 Hydrocodone/Acetaminophen (*Crx) 5-325 Mg Tablet PO 1 tab Q4H PRN Administration Pain Rated 4-6 Hydrocodone Bitart/Acetaminophen 1 tab 07/15/20 11:26 Hydrocodone/Acetaminophen (*Crx) 7.5-325 Mg Tablet PO Q4H PRN Pain Rated 7-10 Emollient Ointment 1 applic 07/15/20 17:17 07/16/20 14:25 Petrolatum Oint 30 Gm Tube TOPICAL 1 applic Q24H PRN Administration lip irritation Enoxaparin Sodium 40 mg 07/15/20 09:00 07/16/20 09:20 Enoxaparin 40 Mg/0.4 Ml Syringe SUB-Q 40 mg DAILY [place]
[2020-07-17] VITALS (18 sets, daily range): BP systolic 120–210; BP diastolic 45–86; PULSE 61–80; RESP 16–22; TEMP 36.3–37.4; O2SAT 93–100
[2020-07-17 05:32] LABS: Hematocrit 32.8 % (37.0-47.0); Hemoglobin 10.8 g/dL (12.0-15.0); Mean Corpuscular HGB Conc 32.9 g/dl (32-36); Mean Corpuscular Hemoglobin 27.8 pg (26-34); Mean Corpuscular Volume 84.3 fl (80-100); Mean Platelet Volume 11.4 fl (7.4-10.4); Platelet Count Result 295 k/mm3 (150-375); Red Blood Count 3.89 M/mm3 (4.2-5.4); Red Cell Distribution Width 12.2 % (11.5-14.5); White Blood Count 11.2 K/mm3 (4.5-10.0)
[2020-07-17 05:44] LABS: Anion Gap -1 mmol/L (8-16); Blood Urea Nitrogen 7 mg/dL (7-17); Calcium 7.6 mg/dL (8.4-10.2); Carbon Dioxide 30 mmol/L (22-30); Chloride 106 mmol/L (98-107); Estimated CRCL calculation 49 ml/min; Estimated Glomerular Filt Rate > 60; Glucose 102 mg/dL (65-105); Lipase 294 U/L (23-300); Magnesium 1.7 mg/dL (1.6-2.3); Potassium 3.8 mmol/L (3.4-5.0); Sodium 135 mmol/L (137-145)
[2020-07-17] MEDS: FAMOTIDINE 20 MG/2 ML VIAL IV PUSH ×2 (08:14→21:19)
[2020-07-17] MEDS: METOPROLOL SUCCINATE EXT REL 25 MG TABCR PO (08:14)
[2020-07-17] MEDS: CHLORHEXIDINE GLUCONATE 4% SOL 120 ML BTL 1 APPLIC TOPICAL (08:57)
--- NOTE | 2020-07-17 09:29 | PM.IMPN ---
Progress Note: A&P Assessment and Plan (1) Acute pancreatitis: Qualifiers: Acute pancreatitis complication: unspecified Pancreatitis type: other Qualified Code(s): K85.80 - Other acute pancreatitis without necrosis or infection Code(s): K85.90 - Acute pancreatitis without necrosis or infection, unspecified Status: Deleted Assessment and Plan: Likely secondary biliary etiology given RUQ US today showing cholelithiasis. Patient also drinks 1-2 shots of rum daily. Lipase improving. Dr. Grace Surgery consulted and will be undergoing lap kandy today due to acute biliary pancreatitis Dr. Roberts consulted and agrees with surgery. Otherwise patient would like to keep PEG tube. He will consider further workup with possible EGD and PEG tube replacement as an outpatient. Continue IV hydration Pain control w/ PO narcotic medications. IV narcotics if not tolerating PO Monitor CMP/lipase Appreciate recommendations from GI and General Surgery Monitor closely (2) Abnormal urinalysis: Code(s): R82.90 - Unspecified abnormal findings in urine Status: Deleted Assessment and Plan: UA suggesting UTI. Empiric Rocephin started in ED. Patient has no urinary symptoms, although has an significant leukocytosis. UCx negative; antibiotics d/c Monitor for symptoms (3) Leukocytosis: Code(s): D72.829 - Elevated white blood cell count, unspecified Status: Deleted Assessment and Plan: Likely reactive to acute pancreatitis. UCx negative Monitor CBCd. (4) Dehydration: Code(s): E86.0 - Dehydration Status: Deleted Assessment and Plan: Continue IV hydration until tolerating diet more (5) Hypertension: Code(s): I10 - Essential (primary) hypertension Status: Chronic Assessment and Plan: BP 162/61, elevated. Continued her home metoprolol daily. She appears anxious due to her procedure today. Monitor blood pressure. PRN IV hydralazine w/ parameters ordered. (6) Cancer of tongue: Code(s): C02.9 - Malignant neoplasm of tongue, unspecified Status: Chronic Assessment and Plan: stable. (7) Dysphagia: Code(s): R13.10 - Dysphagia, unspecified Status: Acute Assessment and Plan: Hx tongue cancer, has PEG tube in place which she takes Ensure from 4x per day. PEG tube is falling out and she does not want Dr. Glover to put another one in. Explained the risks of aspiration and developing pneumonia. She does have some dysphagia which is improving today. I asked her if she would like to have speech therapy evaluate her due to her history of cancers status post radiation and risk for aspiration, but she denies at this time. Aspiration precautions. Will continue monitor how she is eating and drinking. Continue monitoring. Time Spent With Patient Time with patient: 25 - 35 minutes Subjective Date/time seen: 07/17/20 09:29 Interval history: Patient is a 80 year old female with known history of previous tongue cancer who is known to have a PEG tube who normally consumes 4-5 Ensures daily, previous episode of pancreatitis, and HTN who is seen in follow up for acute pancreatitis. Date of service 07/17/2020: Patient reports feeling slightly anxious for her procedure later on. She is having some lower back discomfort which she states is chronic for her and she artery had some ibuprofen for this. She denies any nausea, vomiting, abdominal pain. She denies any productive sputum, chest congestion, shortness of breath, fevers, chills, leg swelling, calf pain, chest pain, or any other symptoms at this time. Review of Systems Review of Sy
--- NOTE | 2020-07-17 10:39 | PC.NURSE ---
To OR per bed, IV intact. Surgical SBAR faxed @ [phone].
--- NOTE | 2020-07-17 11:12 | WPDANESEPPF ---
Anes - Initial Pre Proc Eval Procedure: Operation Date: 07/17/20 12:00 Proposed Procedures p Laparoscopic Cholecystectomy - Jace Grace MD Date/Time: 07/17/20 11:12 Surgeon: Maribell Edwards PA-C Pre Op Diagnosis: acute pancreatitis, uti Patient Data Age: 80 Gender: F Height: 1.55 m Weight: 48.9 kg Last Vital Signs Temp 36.5 C 07/17/20 06:00 Pulse 71 07/17/20 08:14 Resp 18 07/17/20 06:00 BP 162/61 H 07/17/20 06:00 Pulse Ox 96 07/17/20 06:00 Allergies Allergy/AdvReac Type Severity Reaction Status Date / Time No Known Allergies Allergy Verified 07/14/20 00:51 Home Medications Medication Instructions Recorded Confirmed Type aspirin [Adult Aspirin EC Low 81 mg PO DAILY 07/13/20 07/13/20 History Strength] metoprolol succinate 25 mg PO DAILY 07/13/20 07/13/20 History zolpidem [Ambien] 5 mg PO HS PRN 07/13/20 07/13/20 History Laboratory Tests 07/17/20 07/17/20 05:24 05:24 WBC 11.2 K/mm3 H K/mm3 (4.5-10.0) RBC 3.89 M/mm3 L M/mm3 (4.2-5.4) Hgb 10.8 g/dL L g/dL (12.0-15.0) Hct 32.8 % L % (37.0-47.0) MCV 84.3 fl fl (80-100) MCH 27.8 pg pg (26-34) MCHC 32.9 g/dl g/dl (32-36) RDW 12.2 % % (11.5-14.5) Plt Count 295 k/mm3 k/mm3 (150-375) MPV 11.4 fl H fl (7.4-10.4) Sodium 135 mmol/L L mmol/L (137-145) Potassium 3.8 mmol/L mmol/L (3.4-5.0) Chloride 106 mmol/L mmol/L (98-107) Carbon Dioxide 30 mmol/L mmol/L (22-30) Anion Gap -1 mmol/L L mmol/L (8-16) BUN 7 mg/dL mg/dL (7-17) Creatinine 0.60 mg/dL L mg/dL (0.7-1.0) Estim Creat Clear Calc 49 ml/min ml/min Estimated GFR > 60 (59 - ) Glucose 102 mg/dL mg/dL (65-105) Calcium 7.6 mg/dL L mg/dL (8.4-10.2) Magnesium 1.7 mg/dL mg/dL (1.6-2.3) Lipase 294 U/L U/L (23-300) Patient hx anesthesia problems: none Family hx anesthesia problems: none PMFSH Past Medical History Medical History (Updated 07/17/20 @ 11:12 by Karle Bello DO) Abdominal pain CAD (coronary artery disease) Cancer of tongue s/p radiation - tongue graft replacement Hypertension Pancreatitis Uses feeding tube Surgical History Surgical History (Updated 07/16/20 @ 11:47 by Karel Bello DO) History of coronary artery stent placement x2 History of tubal ligation PEG (percutaneous endoscopic gastrostomy) status Family History Family History Father Family history of cardiovascular disease Mother Family history of lung cancer Social History Social History Smoking status: Former smoker Alcohol intake: never Substance use: never Substance use type: does not use Gender identity (if verbalized by the patient): Female Spiritual care concerns: No Anes - Eval Final PreProcedure Day of Procedure 07/17/20 11:12 Patient weight: normal Heart: regular rate and rhythm Lungs: clear to auscultation and normal air movement Airway: Mallampati scale class III Neurological: alert and oriented Last oral intake: >/= 8 hours ASA classification: III Emergent: no Anesthetic plan: proceed Anesthesia type and monitoring: general ETT and standard monitoring Informed Consent: The patient's anesthetic plan and its attendant risks and benefits were discussed with the patient/family/POA. Questions were solicited and answers provided to the satisfaction of the patient/family/POA.
[2020-07-17] MEDS: LACTATED RINGERS 1,000 ML 30 ML IV CONT (11:20)
--- NOTE | 2020-07-17 12:10 | WPDHPUPDATE1 ---
History and Physical Update Update Date/Time: 07/17/20 12:10 History and Physical has been reviewed, including an updated exam of the patient. There are NO changes in the patient's condition. Risks, benefits, and alternatives have been discussed and questions answered. Patient agrees to proceed with procedure.
[2020-07-17] MEDS: ceFAZolin 2 GM/D5W 50 ML 2 GM/50 ML BAG IVPB (12:40)
[2020-07-17] MEDS: BUPIVACAINE/EPINEPHRINE 0.5% 30 ML VIAL INFILTRATE (13:24)
--- NOTE | 2020-07-17 14:09 | P.OP_ITS ---
Procedure Note - Detailed Date of procedure: 07/17/20 Pre-op diagnosis: Acute biliary pancreatitis Acute biliary pancreatitis Post-op diagnosis: same Procedure performed: Laparoscopic cholecystectomy Description of procedure: The patient was taken to surgery and induced into general anesthesia. The abdomen was prepped and draped. Trocars were placed in the usual fashion using 0.5% Marcaine with epinephrine and applied Medical optical trocars. A 5 millimeter camera was used. Some cloudy yellow fluid was noted along the right lobe of the liver most likely ascites from her pancreatitis. We reviewed the G-tube attachment and it was intact. This did not appear to be Ensure or tube feeds. There was no bile in it to suggest ruptured gallbladder. This was suctioned away and no other ascites was noted. The gallbladder was retracted anterosuperiorly. The cholecystohepatic triangle was exposed. Traction was placed on the infundibulum. The cystic duct and cystic artery were dissected out very clearly. The gallbladder was dissected off the liver at its lower 3rd. Critical view was achieved. We securely clipped and divided the cystic duct and cystic artery. The gallbladder was then further retracted so that the peritoneal attachments to the liver could be divided. Once the gallbladder was freed entirely, it was placed in an Endo- Catch bag and retrieved through the 10 11 epigastric trocar site. The epigastric trocar was then replaced. We reviewed the right upper quadrant. It was irrigated and suctioned. All looked good with no evidence of bleeding or bile leakage. We evacuated CO2 and removed the trocar sleeves. The fascia at the epigastric trocar site was closed with 0 Vicryl suture using a Vasquez cone. Skin wounds were closed with subcuticular 4 O Monocryl skin suture. The wounds were dressed with Exofin surgical adhesive. Patient was awakened and taken to recovery in good condition. Sponge and needle counts were correct x2. Anesthesia: GETA and local (0.5% Marcaine with epinephrine) Surgeon: Jace Grace MD Echocardiography Radiology Technologist: Alvina LOZOYA Estimated blood loss (mL): 20 Drains: No Packing: No Pathology: yes (Gallbladder) Complications: None Condition: stable Disposition: PACU Findings: Acute and chronic inflammation with edema, some of this probably from pancreatitis. Cloudy yellowish fluid or ascites along the lateral aspect of the right lobe of the liver. No gallstones noted. No biliary ductal dilatation, no liver abnormalities.
[2020-07-17] MEDS: fentaNYL CITRATE INJ (*CRX) 100 MCG/2 ML VIAL 25 MCG IV PUSH ×6 (14:11→16:16)
[2020-07-17] MEDS: hydrALAZINE HCL 20 MG/ML VIAL 10 MG IV PUSH (14:20)
--- NOTE | 2020-07-17 18:01 | PC.NURSE ---
Returned from OR per bed. Report received from GARRY Berg.
[2020-07-17] MEDS: HYDROcodone/acetaminophen (*CRX) 5-325 MG TABLET 1 TAB PO (18:02)
[2020-07-17] MEDS: KCL 20 MEQ/D5/0.45% SOD CHL 1,000 ML 50 ML IV CONT (18:10)
[2020-07-18 01:57] VITALS: BP 120/50; PULSE 75; RESP 14; TEMP 36.9; O2SAT 93
[2020-07-18 05:16] VITALS: BP 161/54; PULSE 69; RESP 16; TEMP 36.7; O2SAT 97
[2020-07-18 05:54] LABS: Hemoglobin 11.4 g/dL (12.0-15.0); Mean Corpuscular HGB Conc 32.6 g/dl (32-36); Mean Corpuscular Hemoglobin 27.7 pg (26-34); Mean Platelet Volume 11.3 fl (7.4-10.4); Platelet Count Result 313 k/mm3 (150-375); Red Blood Count 4.12 M/mm3 (4.2-5.4); White Blood Count 12.2 K/mm3 (4.5-10.0)
[2020-07-18 05:56] LABS: Anion Gap 3 mmol/L (8-16); Blood Urea Nitrogen 11 mg/dL (7-17); Calcium 7.9 mg/dL (8.4-10.2); Carbon Dioxide 28 mmol/L (22-30); Chloride 102 mmol/L (98-107); Estimated CRCL calculation 42 ml/min; Estimated Glomerular Filt Rate > 60; Glucose 105 mg/dL (65-105); Magnesium 1.7 mg/dL (1.6-2.3); Potassium 4.2 mmol/L (3.4-5.0); Sodium 133 mmol/L (137-145)
[2020-07-18] MEDS: FAMOTIDINE 20 MG/2 ML VIAL IV PUSH (08:47)
[2020-07-18] MEDS: ENOXAPARIN 40 MG/0.4 ML SYRINGE SUB-Q (08:47)
[2020-07-18] MEDS: ASPIRIN 81 MG ENTERIC TABLET PO (08:47)
--- NOTE | 2020-07-18 09:26 | WPDANESPN ---
Anes - Prog Note Post-Op Date/Time: 07/18/20 09:26 Cardiovascular status: normal Respiratory status: normal Airway patency: baseline Mental status: baseline Post-Op hydration status: normal Vital Signs: Last Vital Signs Temp 36.7 C 07/18/20 05:16 Pulse 69 07/18/20 05:16 Resp 16 07/18/20 05:16 BP 161/54 H 07/18/20 05:16 Pulse Ox 97 07/18/20 05:16 Pain Score (VAS): 3 I/O: Intake & Output 07/17/20 07/18/20 07/18/20 23:59 07:59 15:59 Intake Total 1360 500 Output Total 300 Balance 1360 200 Laboratory Tests 07/18/20 05:24 07/18/20 05:24 07/18/20 07/18/20 05:24 05:24 WBC 12.2 H RBC 4.12 L Hgb 11.4 L Hct 35.0 L MCV 85.0 MCH 27.7 MCHC 32.6 RDW 12.0 Plt Count 313 MPV 11.3 H Sodium 133 L Potassium 4.2 Chloride 102 Carbon Dioxide 28 Anion Gap 3 L BUN 11 Creatinine 0.70 Estim Creat Clear Calc 42 Estimated GFR > 60 Glucose 105 Calcium 7.9 L Magnesium 1.7 Post-procedural complaints: none Patient Feedback: Patient satisfied with anesthetic care.
[2020-07-18 10:42] VITALS: BP 148/68; PULSE 70; RESP 12; TEMP 36.2; O2SAT 98
--- NOTE | 2020-07-18 10:53 | PCNFU ---
Nutrition Follow-Up Complete: Inadequate oral intake related to pancreatitis as evidenced by clear liquid diet order. Goal: Patient to meet estimated nutritional needs. Pt current nutrition is 6 cans of chocolate Ensure Enlive a day. Last recorded weight is 48.9 kg. Stable weight upon admission. Bowel Motility: + BM 07/16 Labs Reviewed: Hgb 11.4, Hct 35, Na 133 Meds Noted: [place], Lovenox, Narcan, Zofran Additional Notes: Spoke with patient. Patient is now on a tube feeding diet receiving 6 cans of chocolate Ensure Enlive a day providing her with 350 calories and 20 grams of protein in each ensure. If patient consumes all 6 she will receive a total of 2,100 calories and 120 grams of protein a day. She reported not being hungry or having much of an appetite. When asked about weight loss she reported since she has not been eating much the past 5 days she has probably lost some weigh but is unsure of how much. Follow up every Wednesday/Wednesday.
--- NOTE | 2020-07-18 11:03 | PCNSR ---
On 07/18/20, the student, Beatriz Ferris, provided care and [facility]. I have reviewed the student's documentation and agree with the findings.
--- NOTE | 2020-07-18 11:42 | PM.PNGS ---
Progress Note: A&P Assessment and Plan (1) Acute biliary pancreatitis without infection or necrosis: Code(s): K85.10 - Biliary acute pancreatitis without necrosis or infection Status: Acute Assessment and Plan: POD#1 and doing well. Pain well controlled. Continue previous full liquid diet with supplements. Okay to discharge the patient from a surgical standpoint when okay with the Hospitalist. Follow-up with Dr. Grace in the office in 2 weeks. Discussed d/c instructions with the patient and answered all questions. (2) Dysphagia: Code(s): R13.10 - Dysphagia, unspecified Status: Acute (3) PEG (percutaneous endoscopic gastrostomy) status: Code(s): Z93.1 - Gastrostomy status Status: Chronic Assessment and Plan: Leave G-tube in place for now. Continue feedings as mentioned above. (4) Cancer of tongue: Code(s): C02.9 - Malignant neoplasm of tongue, unspecified Status: Chronic Additional Plan Discussed plan of care with Dr. Grace. Subjective Subjective Date/Time Seen: 07/18/20 11:42 Post Op day: 1 (Laparoscopic cholecystectomy) Patient reports: no new complaints, tolerating liquids well, voiding w/o difficulty, flatus and no bowel movement Interval history: Patient denies nausea, vomiting, or other complaints. Not much incisional pain. Tolerating activity well. No other complaints at this time. Review of Systems Review of Systems: All systems reviewed & are unremarkable except as noted in HPI and below Constitutional: Constitutional: Reports as per HPI, Reports no additional constitutional complaints, Denies chills and Denies fever(s) Cardiovascular: Cardiovascular: Reports no additional cardiovascular complaints, Denies chest pain and Denies leg edema Respiratory: Respiratory: Reports no additional respiratory complaints, Denies cough and Denies dyspnea Gastrointestinal: Gastrointestinal: Reports as per HPI and Reports no additional gastrointestinal complaints Neurologic: Reports system reviewed and no additional complaints, except as documented, Denies confusion and Denies focal weakness Exam Const: General: comfortable, no acute distress, alert and awake Orientation/consciousness: patient oriented x3 Resp: Effort & Inspection: normal respiratory effort Auscultation: clear to auscultation bilaterally Cardio: Rate: regular rate Rhythm: regular rhythm GI: Inspection: non-distended and incision (Abdominal incisions clean and dry, glue intact.) GI Palp: Yes Soft to palpation, Yes Tenderness to palpation present (GI) (incisional) and No Guarding due to palpation present (GI) Auscultation: normal bowel sounds Other: LUQ G-tube in place, clamped Skin: General skin exam: normal color Rashes: no rashes Neuro: General: moves all extremities and no focal motor deficits Cranial nerves: Yes CN's II-XII intact bilaterally Speech: normal speech Extrem: General: no clubbing, cyanosis or edema and no calf tenderness Psych: Mental Status: mental status grossly normal Attitude: cooperative Thought process: Normal thought process present Thought content: Yes Normal thought content present Insight: Good insight present (Psych) Judgement: Good judgement present (Psych) Objective Data Vital Signs Vital Signs: Vital Signs - 24 hr 07/17/20 13:54 07/17/20 14:05 07/17/20 14:20 Temperature 97.7 F Pulse Rate 80 63 61 Respiratory Rate 22 H 22 H 20 Blood Pressure 199/78 H 188/86 H 210/68 H Pulse Oximetry 100 100 100 07/17/20 14:35 07/17/20 14:50 07/17/20 15:20 Temperature Pulse Rate 70 80 71 Respiratory Rate 18 18 18 Blood Pressure 145/50 H 132/49 L 140/47 L Pulse Oximetry 95 93 93 07/17/20 15:50 07/17/20 16:20 07/17/20 16:50 Temperature Pulse Rate 70 70 72 Respiratory Rate 18 18 18 Blood Pressure 139/45 L 130/49 L 132/48 L Pulse Oximetry 93 94 95 07/17/20 17:25 07/17/20 17:40 07/17/20 18:05 Temperature 97.9 F 98.5 F 98.3 F Pulse Rate 74
--- NOTE | 2020-07-18 14:36 | PM.DS ---
DS: Admitting Diagnosis Admitting Diagnosis Admitting Diagnosis: Abdominal pain DS: Discharge Diagnosis Discharge Diagnosis (1) Acute pancreatitis: Qualifiers: Acute pancreatitis complication: unspecified Pancreatitis type: other Qualified Code(s): K85.80 - Other acute pancreatitis without necrosis or infection Code(s): K85.90 - Acute pancreatitis without necrosis or infection, unspecified Status: Deleted Assessment and Plan: Likely secondary biliary etiology given RUQ US today showing cholelithiasis. Patient also drinks 1-2 shots of rum daily. Lipase improving. Dr. Grace Surgery consulted and performed a lap kandy 07/17/20 due to acute biliary pancreatitis Dr. Roberts consulted and agrees with surgery. Otherwise patient would like to keep PEG tube. He will consider further workup with possible EGD and PEG tube replacement as an outpatient. Patient understands. She is doing well postop. Still having some abdominal discomfort. Otherwise able to drink as tolerated as well as use her PEG tube since sutures were placed for better placement. (2) Abnormal urinalysis: Code(s): R82.90 - Unspecified abnormal findings in urine Status: Deleted Assessment and Plan: UA suggesting UTI. Empiric Rocephin started in ED. Patient has no urinary symptoms, although has an significant leukocytosis. UCx negative; antibiotics d/c (3) Leukocytosis: Code(s): D72.829 - Elevated white blood cell count, unspecified Status: Deleted Assessment and Plan: Likely reactive to acute pancreatitis. UCx negative Monitor CBCd. (4) Dehydration: Code(s): E86.0 - Dehydration Status: Deleted Assessment and Plan: Continue IV hydration until tolerating diet more (5) Hypertension: Code(s): I10 - Essential (primary) hypertension Status: Chronic Assessment and Plan: BP 161/64, elevated. Continued her home metoprolol daily. (6) Cancer of tongue: Code(s): C02.9 - Malignant neoplasm of tongue, unspecified Status: Chronic Assessment and Plan: stable. (7) Dysphagia: Code(s): R13.10 - Dysphagia, unspecified Status: Acute Assessment and Plan: Hx tongue cancer, has PEG tube in place which she takes Ensure from 4x per day. PEG tube is falling out and she does not want Dr. Glover to put another one in. Explained the risks of aspiration and developing pneumonia. She does have some dysphagia which is improving today. I asked her if she would like to have speech therapy evaluate her due to her history of cancers status post radiation and risk for aspiration, but she denies at this time. Aspiration precautions. She does report some discomfort with swallowing, denies much cough. GI will follow-up as an outpatient and possibly perform an EGD. She understands the risk of aspiration at this point. She believes she is going to use her PEG tube more since it is more stable. Told to return to ER warning instructions. She understands and agrees with the plan all questions answered. DS: Summary Hospital Course Reason for hospitalization: Patient is a 80-year-old woman with a history of prior tongue cancer, status post radiation, surgery has a PEG tube in place and consumes 4-5 ensures daily, who presented to the emergency room with diffuse abdominal pain for 1 day with associated nausea and vomiting. Initial labs showed afebrile, heart rate 59, blood pressure 109/94, oxygen 99% on room air. Initial Labs showed leukocytosis, at 22,000, with elevated neutrophils. Lipase was greater than 40,000. Urinalysis was suspicious for UTI, but had many squamous cells a
== END 2020-07-18 15:40 | disposition home or self-care (01) | DRG 419 ==
LOC: ANHED 07-13 01:52 → ANH2MED 07-13 06:58 → ANHIMU 07-22 17:58
PROVIDERS: Emergency Medicine; Surgery; Admitting Provider Family Medicine; Emergency Provider Emergency Medicine; PCP Nurse Practitioner Family; Visit Provider Physician Assistant
PROC: 0FT44ZZ Resection of Gallbladder, Percutaneous Endoscopic Approach (ICD-10-PCS; CPT 47562; principal; 2020-07-17 12:00)
DX: K85.10 Biliary acute pancreatitis without necrosis or infection (principal); R13.10 Dysphagia, unspecified; C02.9 Malignant neoplasm of tongue, unspecified; D72.829 Elevated white blood cell count, unspecified; E86.0 Dehydration; R82.998 Other abnormal findings in urine; I10 Essential (primary) hypertension; Z93.1 Gastrostomy status; Z85.810 Personal history of malignant neoplasm of tongue; Z87.891 Personal history of nicotine dependence
CPT/HCPCS: 36415; 74177; 74183; 76376; 76705; 80048; 80053; 80061; 80076; 81001; 83605; 83690; 83735; 85025; 85027; 85055; 86850; 86900; 86901; 87040; 87086; 88304; 96365; 96375; 99285; A9270; A9577; C1713; J0330; J0360; J0690; J0696; J1100; J1170; J1650; J1741; J2250; J2405; J2704; J2710; J3010; J3480; J7030; J7120; Q9967

== ENCOUNTER → 2020-08-01 10:56 | Outpatient (CLI) | payer MEDICARE, SELFPAY ==
--- NOTE | ~2020-08-01 | CT_ITS ---
EXAMINATION: CT soft tissue neck chest w EXAM DATE: 08/01/2020 11:31 INDICATION: Squamous cell carcinoma of tongue. TECHNIQUE: Spiral CT of the neck and chest was performed following intravenous injection of 75 mL Omn ipaque 350. Axial, coronal and sagittal images of the neck were reviewed. Axial, coronal and sagitt al images of the chest were reviewed. Coronal maximum intensity pixel images of chest reviewed. The dose-length product (DLP) for this examination was 405.62 mGy-cm. The exposure was tailored accordi ng to patient size (auto mA exposure control), and iterative reconstruction (ASIR) was used as additi onal dose reduction technique. There is no prior study for comparison. FINDINGS: NECK: The thyroid gland is unremarkable. Surgical changes along the left sublingual, submandibular region. The left submandibular gland appears to have been resected. There may have also been lymph no de dissection, but internal jugular vein is still present, widely patent. There is moderate right car otid arteriosclerosis with 50% stenosis by NASCET criteria. Less arterial sclerosis on the left with no appreciable stenosis. The left vertebral artery is dominant. There is no cervical lymphadenopathy. There are no masses identified. The airway is unremarkable. Parapharyngeal and pre-glottic fat planes are preserved. The orbits are unremarkable. Visualized sinuses and mastoid air cells are well aerated. There is moderate cervical spondylosis. CHEST: Some linear bibasilar atelectasis. There is mild bronchiectasis. There is 3 x 5 mm right upper lobe nodule, axial image 39, most likely noncalcified granuloma. The lungs are otherwise clear. Mil d hyperinflation. There are no pleural or pericardial effusions. Tracheobronchial tree is patent. There is no mediastinal, hilar or axillary lymphadenopathy. There is no pneumothorax. Heart nor mal in size. Patient probably has right-sided coronary artery stent. Upper abdomen is unremarkable . There is thoracic spondylosis without osteoblastic or osteolytic lesions identified. IMPRESSION: 1. No suspicion of metastatic disease. 2. Right upper lobe small nodule most likely granuloma. Consider one-year follow-up chest CT. 3. Subsegmental atelectasis. 4. Right carotid 50% stenosis. Reviewed, dictated and finalized at location A. IMPRESSION: 1. No suspicion of metastatic disease. 2. Right upper lobe small nodule most likely granuloma. Consider one-year foll ow-up chest CT. 3. Subsegmental atelectasis. 4. Right carotid 50% stenosis.
== END ==
PROVIDERS: PCP Nurse Practitioner Family; Visit Provider Internal Medicine Medical Oncology
DX: C02.9 Malignant neoplasm of tongue, unspecified (principal); I65.21 Occlusion and stenosis of right carotid artery
CPT/HCPCS: 70491; 71260; Q9967

== ENCOUNTER → 2021-01-17 13:35 | Outpatient (CLI) | payer MEDICARE, SELFPAY ==
--- NOTE | ~2021-01-17 | CT_ITS ---
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 TECHNIQUE: Spiral CT of the neck was performed following intravenous injection of 75 mL Omnipaque 350 . Axial, coronal and sagittal images were reviewed. The dose-length product (DLP) for this examinat ion was 225.55 mGy-cm. The exposure was tailored according to patient size (auto mA exposure control ), and iterative reconstruction (ASIR) was used as additional dose reduction technique. Comparison is made to prior examination from 08/01/2020. FINDINGS: The thyroid gland is unremarkable. Surgical changes along the left sublingual, submandibu lar region. The left submandibular gland appears to have been resected. Surgical clips along the left internal jugular chain, and indistinct fat plane surrounding the left carotid sheath, could be radia tion related change and lymph node dissection. There is moderate right carotid bulb stenosis, mild to moderate on the left. The left vertebral artery is dominant. There is no cervical lymphadenopathy. There are no masses identified. The airway is unremarkable. Parapharyngeal and pre-glottic fat p lanes are preserved. The orbits are unremarkable. Mild right ethmoid mucoperiosteal thickening. M astoid air cells are well aerated. There is moderate cervical spondylosis. IMPRESSION: Stable neck CT examination. Reviewed, dictated and finalized at location G. IMPRESSION: Stable neck CT examination.
[2021-01-17 13:56] LABS: Estimated Glomerular Filt Rate 60
== END ==
PROVIDERS: PCP Nurse Practitioner Family; Visit Provider Internal Medicine Medical Oncology
DX: C77.0 Secondary and unspecified malignant neoplasm of lymph nodes of head, face and neck (principal); C02.9 Malignant neoplasm of tongue, unspecified
CPT/HCPCS: 70491; Q9967

== ENCOUNTER → 2021-07-18 10:12 | Outpatient (CLI) | payer MEDICARE, SELFPAY ==
--- NOTE | ~2021-07-18 | CT_ITS ---
EXAMINATION: CT soft tissue neck chest w DATE: 07/18/2021 10:49 INDICATION: Squamous cell carcinoma of tongue. TECHNIQUE: Computed tomography (CT) of the neck and chest was performed with 75 mL Omnipaque-350 intr avenous contrast. Automated exposure control and iterative reconstruction technique were employed. Th e dose-length product was 455.27 mGy-cm. COMPARISON: CT neck 01/17/2021, CT chest 08/01/2020 FINDINGS: CT NECK: There are changes of resection of the left side of the tongue. There are changes resection o f the left submandibular gland. There are no pathologically enlarged lymph nodes. There is mucosal th ickening in the pharynx and larynx, likely changes of radiation therapy. There is plaque in the proxi mal internal carotid arteries. There is 48% stenosis of proximal right internal carotid artery with r espect to normal distal artery lumen diameter. There is 35% stenosis of proximal left internal caroti d artery with respect to normal distal artery lumen diameter. There is severe cervical spondylosis. CT CHEST: There is mild emphysema. There is mild scarring at the lung apices. There is a stable 3 mm nodule in right upper lobe, likely benign. There is mild atelectasis bilaterally. No pleural effusion . The heart size is normal. There are coronary artery calcifications. No pericardial effusion. There is mild thoracic spondylosis. IMPRESSION: 1. No evidence of metastatic disease. Reviewed, dictated and finalized at location A.
[2021-07-18 10:33] LABS: Estimated Glomerular Filt Rate > 60
== END ==
PROVIDERS: Visit Provider Internal Medicine Medical Oncology
DX: C02.9 Malignant neoplasm of tongue, unspecified (principal); C77.0 Secondary and unspecified malignant neoplasm of lymph nodes of head, face and neck
CPT/HCPCS: 70491; 71260; Q9967

== ENCOUNTER 2022-01-19 14:27 | Outpatient (CLI) | payer MEDICARE, BC, SELFPAY ==
[2022-01-19 14:55] LABS: Anion Gap 11 mmol/L (8-16); Blood Urea Nitrogen 23 mg/dL (7-17); Calcium 9.4 mg/dL (8.4-10.2); Carbon Dioxide 29 mmol/L (22-30); Chloride 100 mmol/L (98-107); Estimated Glomerular Filt Rate > 60; Glucose 95 mg/dL (65-110); Potassium 4.2 mmol/L (3.4-5.0); Sodium 140 mmol/L (137-145)
== END 2022-01-19 14:28 | disposition home or self-care (01) ==
LOC: ANHLAB 14:30
PROVIDERS: PCP Nurse Practitioner Family; Visit Provider Nurse Practitioner Family
DX: E87.5 Hyperkalemia (principal)
CPT/HCPCS: 36415; 80048

== ENCOUNTER → 2022-01-22 12:57 | Outpatient (CLI) | payer MEDICARE, SELFPAY ==
--- NOTE | ~2022-01-22 | CT_ITS ---
EXAMINATION: CT soft tissue neck chest w DATE: 01/22/2022 13:31 INDICATION: Secondary and unspecified malignant neoplasm of lymph nodes. Squamous cell carcinoma of t he tongue. TECHNIQUE: Computed tomography (CT) of the neck and chest was performed with 75 mL Omnipaque-350 intr avenous contrast. Automated exposure control and iterative reconstruction technique were employed. Th e dose-length product was 383.96 mGy-cm. COMPARISON: CT neck and chest 07/18/2021, 08/01/2020 FINDINGS: CT NECK: There are surgical clips involving the tongue, left base of tongue, and left submandibular r egion. There is fat stranding in the neck, consistent with changes of radiation therapy. There are no pathologically enlarged lymph nodes. There is plaque in the proximal internal carotid arteries with 53% stenosis on the right and 44% on the left relative to normal distal artery lumen diameters. There is severe cervical spondylosis. CT CHEST: There is mild emphysema. There is mild scarring at the lung apices. There is mild atelectas is bilaterally. There is a 3 mm nodule in left upper lobe without change, likely benign. No pleural e ffusion. The heart size is normal. There are coronary artery calcifications. No pericardial effusion. A borderline enlarged right paratracheal lymph node measures 16 x 10 mm without change from 08/01/2020 , likely reactive. There is mild thoracic spondylosis. IMPRESSION: 1. No evidence of metastatic disease. Reviewed, dictated and finalized at location A.
[2022-01-22 13:19] LABS: Estimated Glomerular Filt Rate > 60
== END ==
PROVIDERS: PCP Nurse Practitioner Family; Visit Provider Internal Medicine Medical Oncology
DX: C02.9 Malignant neoplasm of tongue, unspecified (principal); C77.0 Secondary and unspecified malignant neoplasm of lymph nodes of head, face and neck
CPT/HCPCS: 70491; 71260; Q9967

== ENCOUNTER 2022-08-27 11:38 | Emergency (ER) | payer MEDICARE, SELFPAY ==
[2022-08-27] VITALS (11 sets, daily range): BP systolic 132–197; BP diastolic 71–86; PULSE 56–74; RESP 11–20; TEMP 36.5; O2SAT 98–100
--- NOTE | ~2022-08-27 | XR_ITS ---
EXAMINATION: XR chest 1V portable INDICATION: Chest pain TECHNIQUE: Portable AP chest at 1229 hours COMPARISON: 11/27/2015 FINDINGS: The lungs are free of acute opacities. No pleural effusion or pneumothorax. The cardiomedia stinal silhouette is normal. IMPRESSION: 1. No acute cardiopulmonary abnormality. Reviewed, dictated and finalized at location L.
--- NOTE | 2022-08-27 11:39 | ECG_ITS ---
Measurements Intervals [place] Rate: 69 P: 80 [place]: 159 QRS: 72 QRSD: 81 T: 64 QT: 370 QTc: 399 Interpretive Statements SINUS RHYTHM COMPARED TO ECG 11/17/2018 15:46:13 NO SIGNIFICANT CHANGES Electronically Signed On 08-27-2022 12:05:26 CDT by Teo De La Fuente M.D.
[2022-08-27 11:58] LABS: Basophils Absolute Auto 0.1 K/mm3 (0.0-0.1); Basophils Percent Auto 0.7 % (0.2-1.2); Eosinophils Absolute Auto 0.3 K/mm3 (0-0.3); Eosinophils Percent Auto 3.8 % (0-4.4); Hematocrit 43.5 % (37.0-47.0); Hemoglobin 13.8 g/dL (12.0-15.0); Immature Granulocyte Absolute 0.01 K/mm3 (0.00-0.031); Immature Granulocyte Percent A 0.1 % (0-0.5); Lymphocytes Absolute Auto 0.94 K/mm3 (0.9-3.2); Lymphocytes Percent Auto 12.9 % (18.3-44.2); Mean Corpuscular HGB Conc 31.7 g/dl (32-36); Mean Corpuscular Hemoglobin 27.6 pg (26-34); Mean Platelet Volume 11.2 fl (7.4-10.4); Monocytes Absolute Auto 0.6 K/mm3 (0.1-0.6); Monocytes Percent Auto 7.8 % (2.6-8.5); Neutrophils Absolute Auto 5.4 K/mm3 (1.3-6.7); Neutrophils Percent Auto 74.7 % (45.5-73.1); Platelet Count Result 306 k/mm3 (150-375); Red Cell Distribution Width 12.9 % (11.5-14.5); White Blood Count 7.3 K/mm3 (4.5-10.0)
[2022-08-27 12:11] LABS: Alanine Aminotransferase 31 U/L (6-35); Albumin Level 4.6 g/dL (3.5-5.1); Alkaline Phosphatase 77 U/L (38-126); Anion Gap 5 mmol/L (8-16); Aspartate Amino Transferase 37 U/L (14-36); Bilirubin,Total 0.5 mg/dL (0.2-1.3); Blood Urea Nitrogen 30 mg/dL (7-17); Calcium 9.6 mg/dL (8.4-10.2); Carbon Dioxide 32 mmol/L (22-30); Chloride 101 mmol/L (98-107); Estimated CRCL calculation 41 ml/min; Estimated Glomerular Filt Rate > 60; Glucose 99 mg/dL (65-110); Lipase 459 U/L (23-300); Potassium 4.2 mmol/L (3.4-5.0); Sodium 138 mmol/L (137-145)
[2022-08-27 12:15] LABS: Prothrombin Time 13.3 Seconds (11.1-14.7)
[2022-08-27 12:16] LABS: Partial Thromboplastin Time 32.5 SECONDS (22.3-36.8)
[2022-08-27 12:22] LABS: Troponin I < 0.012 ng/mL (0.000-0.034)
--- NOTE | 2022-08-27 14:13 | ED.CHESTPAIN ---
HPI - Chest Pain General Chief Complaint: Chest Pain Stated Complaint: chest pain Time Seen by Provider: 08/27/22 13:33 History of Present Illness HPI narrative: Patient is an 82-year-old female with a history of hypertension, CAD, tongue cancer status post resection presenting with chest pain. Patient states that since last night she has had intermittent lower chest pain. States that it comes and goes randomly. Denies obvious exacerbating or alleviating factors. She denies shortness of breath, lightheadedness, palpitations, nausea or vomiting. Denies leg swelling. Denies further complaints. Related Data Home Medications Medication Instructions Recorded Confirmed aspirin 81 mg tablet,delayed 81 mg PO DAILY 07/13/20 11/11/20 release metoprolol succinate 25 mg 25 mg PO DAILY 07/13/20 11/11/20 tablet,extended release 24 hr zolpidem 5 mg tablet (Ambien) 5 mg PO HS PRN Insomnia 07/13/20 11/11/20 Allergies Allergy/AdvReac Type Severity Reaction Status Date / Time No Known Allergies Allergy Verified 08/27/22 12:36 Review of Systems Review of Systems: All systems reviewed & are unremarkable except as noted in HPI and below PMFSH Past Medical History Medical History Abdominal pain CAD (coronary artery disease) Cancer of tongue s/p radiation - tongue graft replacement Hypertension Pancreatitis Uses feeding tube Surgical History Surgical History History of coronary artery stent placement x2 History of tubal ligation PEG (percutaneous endoscopic gastrostomy) status Family History Family History Father Family history of cardiovascular disease Mother Family history of lung cancer Social History Social History Smoking status: Former smoker Alcohol intake: never Substance use: never Substance use type: does not use Gender identity (if verbalized by the patient): Female Spiritual care concerns: No Exam Narrative: GENERAL: Well-appearing, well-nourished, and in no acute distress. HEAD: Normocephalic, atraumatic. EYES: PERRLA and EOMI. ENT: Nares clear, no rhinorrhea or epistaxis. Mucous membranes tacky NECK: Supple. CHEST: Clear to auscultation. No respiratory distress. HEART: Regular rate and rhythm. No murmur heard. Normal peripheral pulses. ABDOMEN: Soft, nontender, nondistended, normal active bowel sounds. EXTREMITIES: Normal range of motion. No edema. SKIN: Warm, dry, no rash. NEURO: Slight dysarthria which is baseline secondary to tongue cancer resection, alert and oriented x3. PSYCH: Normal mood and affect. Course Vital Signs Vital signs: Vital Signs Temperature 97.7 F 08/27/22 11:51 Pulse Rate 74 08/27/22 11:51 Respiratory Rate 20 08/27/22 11:51 Blood Pressure 197/71 H 08/27/22 11:51 Pulse Oximetry 100 08/27/22 11:51 Oxygen Delivery Room Air 08/27/22 11:51 Temperature 97.7 F 08/27/22 11:51 Pulse Rate 57 L 08/27/22 16:07 Respiratory Rate 12 08/27/22 16:07 Blood Pressure 132/86 08/27/22 16:07 Pulse Oximetry 98 08/27/22 16:07 Oxygen Delivery Room Air 08/27/22 11:51 MDM - Chest Pain MDM Narrative Medical decision making narrative: Patient is an 82-year-old female presenting with 1 day of intermittent chest pain. Patient is hypertensive, otherwise vitals are within normal limits.. Patient is nontoxic and in no acute distress. Exam remarkable for the above. EKG per my interpretation shows normal sinus rhythm, normal axis and intervals, no ST elevations or depressions. Unchanged from prior. Blood work is unremarkable. Troponins undetectable x2. Chest x-ray shows no acute abnormalities. Patient is resting comfortably on reevaluation. She denies recurrence of pain. She feels comfortable going
[2022-08-27 15:26] LABS: Troponin I < 0.012 ng/mL (0.000-0.034)
== END 2022-08-27 16:23 | disposition home or self-care (01) ==
PROVIDERS: Emergency Medicine; Emergency Provider Emergency Medicine; PCP Nurse Practitioner Family
DX: R07.89 Other chest pain (principal); I10 Essential (primary) hypertension; I25.10 Atherosclerotic heart disease of native coronary artery without angina pectoris; Z85.810 Personal history of malignant neoplasm of tongue; Z92.3 Personal history of irradiation; Z79.82 Long term (current) use of aspirin; Z95.5 Presence of coronary angioplasty implant and graft; Z87.891 Personal history of nicotine dependence
CPT/HCPCS: 36415; 71045; 80053; 83690; 84484; 85025; 85610; 85730; 93005; 99284

== ENCOUNTER → 2022-09-02 08:08 | Outpatient (CLI) | payer MEDICARE, SELFPAY ==
--- NOTE | ~2022-09-02 | CT_ITS ---
EXAMINATION: CT soft tissue neck chest w DATE: 09/02/2022 08:54 INDICATION: Squamous cell carcinoma of tongue. TECHNIQUE: Computed tomography (CT) of the neck and chest was performed with 75 mL Omnipaque-350 intr avenous contrast. Automated exposure control and iterative reconstruction technique were employed. Th e dose-length product was 399.67 mGy-cm. COMPARISON: Neck and chest CT 01/22/2022, 08/01/2020 FINDINGS: CT NECK: There is mucosal thickening in the paranasal sinuses. There are surgical clips in the left n chio and tongue and floor of mouth. There is mucosal thickening in the pharynx and larynx, consistent with changes of radiation therapy. There are no pathologically enlarged lymph nodes. There is plaque in the proximal internal carotid arteries with less than 50% stenosis relative to normal distal arter y lumen diameters. There is severe cervical spondylosis. CT CHEST: There is mild scarring at the lung apices. There is mild emphysema. There is mild dependent atelectasis bilaterally. There is a chronic 3 mm nodule in left upper lobe. There is a chronic 4 mm nodule in right upper lobe. No pleural effusion. The heart size is normal. There are coronary artery calcifications. No pericardial effusion. There are no pathologically enlarged lymph nodes. There is m ild thoracic spondylosis. IMPRESSION: 1. No evidence of metastatic disease. Reviewed, dictated and finalized at location A.
== END ==
PROVIDERS: PCP Nurse Practitioner Family; Visit Provider Internal Medicine Medical Oncology
DX: C02.9 Malignant neoplasm of tongue, unspecified (principal); C77.0 Secondary and unspecified malignant neoplasm of lymph nodes of head, face and neck; R91.1 Solitary pulmonary nodule
CPT/HCPCS: 70491; 71260; Q9967

== ENCOUNTER 2022-11-06 13:46 | Outpatient (CLI) | payer MEDICARE, SELFPAY ==
--- NOTE | ~2022-11-06 | XR_ITS ---
EXAMINATION: XR barium swallow modified DATE: 11/06/2022 14:48 INDICATION: Squamous cell carcinoma of tongue. TECHNIQUE: The patient was given barium-containing material of multiple consistencies to swallow by t eddie speech pathologist while I performed fluoroscopy. Fluoroscopy exposure time was 0.5 minutes. The n umber of fluoroscopy images saved to the PACS was 1. Dose-area product was 0.291 Gy-cm^2. FINDINGS: There is reduced tongue base retraction and piriform sinus residue. IMPRESSION: 1. No laryngeal penetration or aspiration. 2. Please refer to the speech therapy report for recommendations. Reviewed, dictated and finalized at location A.
--- NOTE | 2022-11-06 16:55 | REHSTMBS ---
Assessment and note entered by Meredith Spence CLAIMS ANALYST Modified Barium Swallow Evaluation Feeding Type Recommended Oral Food Consistency Pureed, Level 4 Liquid Consistency Thin (0) Treatment Recommendations Tongue Base Exercise ST Clinical Summary MODIFIED BARIUM SWALLOW STUDY This patient was seen for a Modified Barium Swallow study after reporting that she has been having difficulty swallowing. 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 She reports that she has had g-tube feedings in the past however since the last one fell out one year ago, she refused to replace it and has been consuming Ensure since then. She stated that she consumes three cans of Ensure a day for a total of 150 calories, and she drinks one latte a day with added protein powder, half and half, or honey to add extra calories. Patient stated that she has had difficulty swallowing her own saliva since the surgery and just expectorates it or wipes her mouth and other times she swallows (the Ensure or a soft item like ice cream) and she can feel that she has swallowed but that the item did not go down until she swallows again or washes it down with water. Today the patient was viewed in the lateral position to the level of C5/C6. Patient was presented with a sip of thin liquid contrast medium per spoon, then thin liquid per cup, and pudding mixed with semi-solid contrast medium per spoon. On each presentation, she was able to work the material posteriorly with mild spilling of material over base of tongue into the valleculae with swallows triggered quickly and no penetration /aspiration. She did however leave moderate amounts of material in the pyriform sinuses after each swallow, requiring her to use multiple swallows to clear pooled material. Results indicate this patient's swallowing skills are grossly within normal limits although she is not getting the full base of tongue retraction which has contributed to the pharyngeal residue
== END 2022-11-06 13:47 | disposition home or self-care (01) ==
PROVIDERS: PCP Nurse Practitioner Family; Visit Provider Internal Medicine Medical Oncology
DX: C02.9 Malignant neoplasm of tongue, unspecified (principal); C77.0 Secondary and unspecified malignant neoplasm of lymph nodes of head, face and neck; R13.10 Dysphagia, unspecified
CPT/HCPCS: 92611

== ENCOUNTER 2022-11-18 13:05 | Outpatient (RCR) | payer MEDICARE, SELFPAY ==
--- NOTE | 2022-11-18 15:39 | STOPEVAL1 ---
Assessment and note entered by Meredith Spence, RETAIL RECEIVING CLERK Evaluation Information Assessment Status Evaluation Diagnosis Dysphagia Onset 05/2018 Subjective Information Patient reports they removed 2/3rds of her tongue and replaced it with material from her arm. A g- tube was placed; she reports that after the fourth g-tube fell out, she decided not to have it replaced. She reports that she has lost close to ten pounds since the removal of the tube but is maintaining that amount. Currently patient consume three Ensure shakes a day worth 150 calories or a total of 450 calories; in addition she adds a latte , beer, or honey, half and half, or protein powder to add extra calories (patient reported no significant increase in weight using these means). Patient reports that once in a while she adds frozen yogurt or Ensure shakes to her drinks to increase caloric intake. Patient stated she blended frozen yogurt with blueberries for increased caloric intake but had to remove the blueberries from the yogurt. Patient reports that certain foods such as Cream of Wheat, cream of potato soup (blended) all created an uncomfortable feeling in the mouth ( like sand ), and she determined not to continue to consume these types of foods. Patient reports that she can feel that she has swallowed food/liquid but that the item did not go down until she swallows again or washes it down with water, as if the item clings to her throat.Reports she loses pills in the mouth. Patient reports that she creates more saliva then she used to, she understands that to be secondary to the removal of her lymph nodes. She also reports she feels there is a coating in her throat, as if her saliva just can't go down. She expresses wondering about having phlegm and/or sinus drainage contributing to this issue but stated that she does not have a history of sinus issues. Patient stated that Dr. Montalvo offered patient a patch to dry up her saliva; she reports she did not feel a significant change with this. Patient states that during the night, her mouth dries excessively and she wakes up hardly being able to move her tongue and voluntarily swallow; she stated that she felt that the patch would cause even more extreme overnight dryness and
--- NOTE | 2022-12-08 13:32 | PCSTNOTE ---
The patient treatment was not able to be completed on 12/08 due to patient illness. Will plan to continue treatment per plan of care.
--- NOTE | 2022-12-10 12:18 | OPREHPOC ---
Outpatient Therapy Plan of Care This is a Multidisciplinary Plan of Care that may contain components documented by all disciplines (PT, OT, and ST.) ST Problem 1 ST Problem #[address] Goal 1 Goal 1. Patient will voice understanding of: *related anatomy and physiology *Understand communication impairment *Understand compensatory strategies *Understand swallowing impairment *Understand treatment plan *Understand potential risks Target Visit [address] Problem #[address] Goal 1 Goal 1. Patient will improve lingual function in order to produce precise lingual/palatal/ sounds 90% of the time. 2. Patient will demonstrate increased coordination and diadochokinetic rates for lingual sounds so that patient can criminal judge her own productions as precise? 90% of the time. 3. Patient will sustain ah sound loudly for at least 5 up to 10 seconds 10/10 times with 90% accuracy. 4. Patient will produce over-articulated mono-/bi- /poly-syllabic words with 90% accuracy. 5. Patient will develop intelligible conversational speech with adequate loudness 90% of the time within a five minute conversation. Target Visit 8 ST Goal 2 Goal The patient will receive a copy of evidence-based exercises for speech and swallow improvement to complete 10 times a day 3 times a week outside of therapy visits. Target Visit [address] Problem #[address] Goal 1 Goal 1. Patient will improve lingual function for effective bolus formation. 2. Patient will complete laryngeal elevation exercises 10 or more times to improve elevation of the epiglottis to the base of tongue in order to improve epiglottic inversion and opening of the UES as evidenced on repeat MBS (when appropriate). 3. Patient will complete base of tongue retraction exercises 10 reps each with good strength in order to reduce/eliminate instances of aspiration
--- NOTE | 2022-12-10 13:08 | PCSTNOTE ---
The patient treatment was not able to be completed on 12/10 assuming due to continued illness; patient did not call to cancel. Will plan to continue treatment per plan of care next Wednesday at 12:30. Therapist called and l/m that we missed her today and hope to see her next week.
--- NOTE | 2022-12-10 13:15 | PCSTNOTE ---
Patient returned call stating that she had bleeding gums and had to undergo a biopsy and is still awaiting results which has upset her causing her to lose track of the appointment today. She stated she will discontinue direct therapy if she has to be treated for oral cancer. Therapist will contact her next week prior to next appointment to determine plan.
--- NOTE | 2022-12-14 12:38 | STOPDC ---
Assessment and note entered by Meredith Spence ENGRAVER SET UP OPERATOR Evaluation Information Assessment Status Discharge - Pt Not Presen Assessment ST Clinical Summary SPEECH THERAPY DISCHARGE SUMMARY This patient was seen for an initial Speech Therapy evaluation on 11/18/22. At that time Speech Therapy was recommended to address lingual function, speech sound precision, and swallowing. Therapist was scheduled to be off for the following two weeks and patient requested she not begin direct ST until this therapist return; she was scheduled then twice weekly for two weeks following therapist return. Patient cancelled each visit in the first week stating she was sick, and then called again this date, December 14, to cancel both visits this week without stating she was discontinuing Speech Therapy or that she wanted to reschedule next week. Patient is discharged without progress made toward goals. She may return to Speech Therapy if and when she is able. Plan of Care ST Services Indicated No
== END 2022-12-14 15:05 | disposition home or self-care (01) ==
LOC: ANHST 13:05
PROVIDERS: PCP Nurse Practitioner Family; Visit Provider Internal Medicine Medical Oncology
DX: R13.10 Dysphagia, unspecified (principal); C02.9 Malignant neoplasm of tongue, unspecified; C77.0 Secondary and unspecified malignant neoplasm of lymph nodes of head, face and neck
CPT/HCPCS: 92610

== ENCOUNTER 2023-02-22 15:28 | Outpatient (CLI) | payer MEDICARE, SELFPAY ==
--- NOTE | ~2023-02-22 | MR_ITS ---
EXAMINATION: MR orbits face neck wo/w con DATE: 02/22/2023 16:46 INDICATION: Squamous cell carcinoma of tongue. Mouth pain. TECHNIQUE: Magnetic resonance imaging (MRI) of the neck was performed without and with 9 mL MultiHanc e intravenous contrast. COMPARISON: Neck CT 09/02/2022, 01/22/22 FINDINGS: There is mucosal thickening in the paranasal sinuses. The mastoid air cells are normal. The re are changes of resection of left submandibular gland. There are no pathologically enlarged lymph n odes. There is mild thickening of the mucosal space of the pharynx and larynx, likely changes of radi ation therapy. There is mild cervical spondylosis. There is decreased T1-weighted signal intensity an d enhancement in bone marrow in left mandibular body where a tooth has been removed. IMPRESSION: 1. Abnormal bone marrow signal intensity in left mandibular body where a tooth has been removed. This finding is nonspecific and may be secondary to stress reaction, infection, osteoradionecrosis, or ma lignancy. Reviewed, dictated and finalized at location E. IMPRESSION: 1. Abnormal bone marrow signal intensity in left mandibular body where a tooth has been removed. This finding is nonspecific and may be secondary to stress re action, infection, osteoradionecrosis, or malignancy.
== END 2023-02-22 15:29 | disposition home or self-care (01) ==
PROVIDERS: PCP Nurse Practitioner Family; Visit Provider Internal Medicine Medical Oncology
DX: C02.9 Malignant neoplasm of tongue, unspecified (principal)
CPT/HCPCS: 70543; A9577

== ENCOUNTER 2023-08-30 09:54 | Outpatient (CLI) | payer MEDICARE, SELFPAY ==
[2023-08-30 10:38] LABS: Appearance Urine Clear (Clear); Bacteria Urine None Seen /hpf; Bilirubin Urine Negative (Negative); Blood Urine Negative (Negative); Color Urine Yellow (Yellow); Glucose Urine UA Negative (Negative); Ketones Urine Negative (Negative); Leukocyte Esterase Ur 2+ LEU/UL (Negative); Nitrate Urine Negative (Negative); Non Pathogenic Casts 0-2; Protein Urine Negative (Negative); RBC Urine 0-2 /hpf (0-2); Specific Grav Ur 1.016 (1.001-1.035); Squamous Epithelial Cell Urine Occasional /hpf (Few)
[2023-08-30 10:47] LABS: Basophils Absolute Auto 0.1 K/mm3 (0.0-0.1); Basophils Percent Auto 1.1 % (0.2-1.2); Eosinophils Absolute Auto 0.3 K/mm3 (0-0.3); Eosinophils Percent Auto 3.8 % (0-4.4); Hematocrit 46.5 % (37.0-47.0); Hemoglobin 14.4 g/dL (12.0-15.0); Immature Granulocyte Absolute 0.01 K/mm3 (0.00-0.031); Immature Granulocyte Percent A 0.2 % (0-0.5); Lymphocytes Absolute Auto 1.13 K/mm3 (0.9-3.2); Lymphocytes Percent Auto 17.1 % (18.3-44.2); Mean Corpuscular Hemoglobin 26.9 pg (26-34); Mean Corpuscular Volume 86.9 fl (80-100); Mean Platelet Volume 11.5 fl (7.4-10.4); Monocytes Absolute Auto 0.5 K/mm3 (0.1-0.6); Monocytes Percent Auto 7.9 % (2.6-8.5); Neutrophils Absolute Auto 4.6 K/mm3 (1.3-6.7); Neutrophils Percent Auto 69.9 % (45.5-73.1); Platelet Count Result 335 k/mm3 (150-375); Red Blood Count 5.35 M/mm3 (4.2-5.4); Red Cell Distribution Width 12.8 % (11.5-14.5); White Blood Count 6.6 K/mm3 (4.5-10.0)
[2023-08-30 10:52] LABS: Add Urine Microscopic? YES
[2023-08-30 10:54] LABS: Alanine Aminotransferase 18 U/L (6-35); Alkaline Phosphatase 102 U/L (38-126); Anion Gap 9 mmol/L (4-12); Aspartate Amino Transferase 32 U/L (14-36); Bilirubin,Total 0.5 mg/dL (0.2-1.3); Blood Urea Nitrogen 26 mg/dL (7-17); Calcium 10.1 mg/dL (8.4-10.2); Carbon Dioxide 33 mmol/L (22-30); Chloride 99 mmol/L (98-107); Cholesterol 226 mg/dL (0-200); Estimated Glomerular Filt Rate > 60; Glucose 97 mg/dL (65-110); HDL Direct 96 mg/dL; Potassium 4.5 mmol/L (3.4-5.0); Sodium 141 mmol/L (137-145); Triglycerides 198 mg/dL (<150)
[2023-08-30 11:05] LABS: LDL Cholesterol Direct 96 mg/dL
[2023-08-30 12:52] LABS: Hemoglobin A1C 5.2 % (<5.7)
[2023-08-30 13:02] LABS: Free T4 Free Thyroxine Reflex 0.81 ng/dL (0.78-2.19)
[2023-08-30 13:43] LABS: Total Triiodothyronine (T3) 1.17 NG/ML (0.97-1.69)
== END 2023-08-30 09:55 | disposition home or self-care (01) ==
LOC: ANHLAB 10:00
PROVIDERS: PCP Nurse Practitioner Family; Visit Provider Family Medicine
DX: I10 Essential (primary) hypertension (principal); E78.5 Hyperlipidemia, unspecified; M19.90 Unspecified osteoarthritis, unspecified site; Z13.1 Encounter for screening for diabetes mellitus
CPT/HCPCS: 36415; 80053; 80061; 81001; 83036; 84439; 84443; 84480; 84550; 85025; 87086; 87088

== ENCOUNTER 2024-09-04 08:17 | Outpatient (CLI) | payer MEDICARE, SELFPAY ==
--- NOTE | ~2024-09-04 | CT_ITS ---
EXAMINATION: CT soft tissue neck chest wo DATE: 09/04/2024 08:51 INDICATION: Squamous cell carcinoma of the tongue TECHNIQUE: Computed tomography (CT) of the neck and chest was performed without intravenous contrast. Automated exposure control and iterative reconstruction technique were employed. The dose-length pro duct was 403.47 mGy-cm. COMPARISON: 09/02/2022 FINDINGS: Neck: Orbits are normal. The paranasal sinuses are clear. Mild mucosal thickening in the bilateral ethmoid and left sphenoid sinuses. Mastoid air cells and middle ear cavities are clear. Bilateral parotid gla nds are symmetric. Thyroid gland appears atrophic. Again seen are multiple surgical clips in the left neck, along the left side of the tongue and floor the mouth. The left submandibular gland is not vis ualized and has likely been resected. The right submandibular gland is unremarkable. Atherosclerotic calcifications at the bilateral carotid bulbs. No pathologically enlarged cervical lymphadenopathy. N o masses identified. Airway is unremarkable. Normal epiglottis. Chest: Mild dependent atelectasis in bilateral lower lobes. No suspicious pulmonary nodules, pneumonia, pulm onary edema or pleural effusion. Heart size is normal. Atherosclerotic coronary artery calcific lesio n. No pericardial effusion. Thoracic aorta is normal in caliber. No pathologically enlarged thoracic lymphadenopathy. Visualized upper abdomen is unremarkable. Mild lower thoracic levocurvature with mil d spondylosis. IMPRESSION: 1. Postoperative changes at the left side of the oral cavity and left neck for squamous cell carcinom a of tongue. No evident recurrent or metastatic disease. Reviewed, dictated and finalized at location A. IMPRESSION: 1. Postoperative changes at the left side of the oral cavity and left neck for squamous cell carcinoma of tongue. No evident recurrent or metastatic disease.
== END 2024-09-04 08:18 | disposition home or self-care (01) ==
LOC: MICIMG 08:18
PROVIDERS: PCP Family Medicine; Visit Provider Internal Medicine Medical Oncology
DX: C02.9 Malignant neoplasm of tongue, unspecified (principal); C77.0 Secondary and unspecified malignant neoplasm of lymph nodes of head, face and neck
CPT/HCPCS: 70490; 71250

== ENCOUNTER 2024-12-04 11:32 | Outpatient (CLI) | payer MEDICARE, SELFPAY ==
--- OUTSIDE RECORDS SUMMARY | 2024-12-04 12:01 | XMS_ITS | Referral Summary ---
Author Organization [facility] [place] [facility] [address] Address [address] [place] [address] Care Team Providers Care Handicapper [employer] Racing Name Role Phone Michael Taylor MD Unavailable James Kim MD Unavailable Duy Montalvo DO Unavailable [phone] Justin De La Fuente MD Primary Care Provider [phone] Encounters Date Type Department Care Team Description 09/11/2024 Results Follow-Up [facility] Oncology [address] [place] [id number] Kassandra Montoya RN XR Spine Lumbar 2 or 3 Views 09/08/2024 2:00 PM CDT Ancillary Procedure [facility] Medical Group Imaging at [address] [address] Acute bilateral low back pain, unspecified whether sciatica present 09/08/2024 1:15 PM CDT Office Visit [facility] Oncology [address] [place] [address] [address] [place] [address] Duy Montalvo DO 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); 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); Acute bilateral low back pain, unspecified whether sciatica present 09/04/2024 Orders Only [facility] Oncology [address] [place] [address] [address] [place] [address] Provider, MD Hayden from Last 3 Months Allergies No known active allergies Medications aspirin 81 mg enteric coated tablet Take 1 tablet (81 mg total) by mouth daily Active zolpidem (AMBIEN) 5 mg tablet TK 1 T PO ATN 9 Active hydrocortisone 2.5 % creamIndications: Skin Inflammation Apply topically 2 (two) times a day 30 g 3 3 Active metoprolol XL (TOPROL-XL) 50 mg extended release tablet Take 1 tablet (50 mg total) by mouth daily 4 Active Active Problems Problem Noted Date Diagnosed Date Bilateral carotid artery stenosis 10/18/2023 Oral cancer 01/18/2023 Statin intolerance 01/30/2019 Protein-calorie malnutrition 08/05/2018 Assessment & Plan (08/08/2018 3:13 PM CDT): Lost 13 kg over the past 2 months (63kg -> 49.6kg). Secondary to oral SCC and poor PO intake. - s/p G tube placement for nutrition 45 by VIR. - TFs started 08/06 with bolus feeds using Ensure Plus starting at 60ml q4h, increasing by 60ml q8h as tolerated to a goal of 270ml when can switch to QID boluses. FWF 200ml QID with bolus and adjust per hydration status. - Appears to be tolerating goal tube feeds. Plan to discharge today - Electrolytes stable - Appreciate RD recommendations Assessment & Plan (08/07/2018 1:10 PM CDT): Lost 13 kg over the past 2 months (63kg -> 49.6kg). Secondary to oral SCC and poor PO intake. - s/p G tube placement for nutrition /5 by VIR. - TFs started 08/06 with bolus feeds using Ensure Plus starting at 60ml q4h, increasing by 60ml q8h as tolerated to a goal of 270ml when can switch to QID boluses. FWF 200ml QID with bolus and adjust per hydration status. Should be reaching goal overnight on 08/07-. - She is at risk for refeeding syndrome, needs q12h BMP, Mg, Phos with repletion. - Appreciate RD recommendations, TFs started. Assessment & Plan (08/06/2018 4:05 PM CDT): Lost 13 kg over the past 2 months (63kg -> 49.6kg). Secondary to oral SCC and poor PO intake. - s/p G tube placement for nutrition 08/05 by VIR. - TFs started 08/06 with bolus feeds using Ensure Plus starting at 60ml q4h, increasing by 60ml q8h as tolerated to a goal of 270ml when can switch to QID boluses. FWF 200ml QID with bolus and adjust per hydration status. - She is at risk for refeeding syndrome, needs q12h BMP, Mg, Phos with repletion. - Appreciate RD recommendations, TFs started. Assessment & Plan (08/05/2018 3:22 PM CDT): Lost 13 kg over the past 2 months (63kg -> 49.6kg). Secondary to oral SCC and poor PO intake. -Gtube placement as above -Appreciate RD recommendations Essential hypertension 08/05/2018 Assessment & Plan (08/08/2018 3:14 PM CDT): Home lisinopril and HCTZ Assessment & Plan (08/06/2018 4:10 PM CDT): Home lisinopril and HCTZ Assessment & Plan (08/06/2018 4:01 PM CDT): Home lisinopril and HCTZ Assessment & Plan (08/05/2018 3:24 PM CDT): Relatively well controlled here so far - Continue home lisinopril and HCTZ CAD (coronary artery disease) 08/05/2018 Assessment & Plan (08/08/2018 3:14 PM CDT): s/p two stents in the , not on statin or ASA at home. Chest pain free. Assessment & Plan (08/06/2018 4:10 PM CDT): s/p two stents in the , not on statin or ASA at home. Chest pain free. Assessment & Plan (08/06/2018 4:03 PM CDT): s/p two stents in the , not on statin or ASA at home. Chest pain free. Assessment & Plan (08/05/2018 3:25 PM CDT): S/p two stents in the - Not on antiplatelets at home Mucositis due to radiation therapy 08/05/2018 Assessment & Plan (08/08/2018 3:14 PM CDT): Intolerant of radiation currently due to significant mucositis, s/p scheduled treatments missing several doses during the week of admission due to pain. Currently planning on continuing XRT this week. - Artificial saliva PRN, chloraseptic lozenge PRN which can change to MMW if not effective. - s/p G-tube placement by VIR on 08/05, okay to use for TFs now. - CTM output every shift Assessment & Plan (08/06/2018 4:10 PM CDT): Intolerant of radiation currently due to significant mucositis, s/p scheduled treatments missing several doses during the week of admission due to pain. Currently planning on continuing XRT this upcoming week. - Artificial saliva PRN, chloraseptic lozenge PRN which can change to MMW if not effective. - s/p G-tube placement by VIR on 08/05, okay to use for TFs now. - CTM output every shift Assessment & Plan (08/06/2018 4:03 PM CDT): Intolerant of radiation currently due to significant mucositis, s/p scheduled treatments missing several doses during the week of admission due to pain. Currently planning on continuing XRT this upcoming week. - Artificial saliva PRN, MMW, - s/p G-tube placement by VIR on 08/05, okay to use for TFs now. - CTM output every shift Assessment & Plan (08/05/2018 3:26 PM CDT): Intolerant of radiation currently due to significant mucositis. S/P scheduled treatments missing several doses this week due to pain. -G-Tube placed today by IR - To remain to gravity drainage overnight and able to use liquid medications however should be capped after administration of medication for an hour and then reconnected. -Measure output every shift. -Likely start Tfs tomorrow - appreciate RD consult - Ensure Plus @goal rate of 270ml QID. Begin feeds @60ml q4hrs and increase by 60ml q8hrs as pt tolerates. When goal rate is reached, can change feeds to QID. Flush with 200mL QID with bolus, adjust per hydration status. -Risk for refeeding syndrome -> monitor BMP, Mg, Phos q12 hours and replete aggressively Malignant neoplasm metastatic to lymph node of n chio 06/07/2018 Generalized weakness 06/07/2018 Post-operative nausea and vomiting 06/07/2018 Acute blood loss anemia 06/07/2018 Leukocytosis 06/07/2018 Hypomagnesemia 06/07/2018 Hypophosphatasia 06/07/2018 Post-operative pain 06/07/2018 Hypokalemia 06/07/2018 Hypocalcemia 06/07/2018 Elevated liver enzymes 06/07/2018 Hypoalbuminemia 06/07/2018 Acute respiratory failure 06/06/2018 Squamous cell carcinoma of tongue 04/07/2018 Cancer Staging:Clinical stage from 04/07/2018:Stage JON(cT2, cN2b, cM0) - Signed by Sarah Marshall MD on 07/19/2018 Pathologic stage from 05/31/2018:Stage I(ypT1, pN0, cM0) - Unsigned Overview (10/25/2018): Left tongue cancer PROCEDURE PERFORMED: (Bernard 05/31/18) Left radial forearm free tissue reconstruction glossectomy defect Left thigh STSG 5 x 7 cm PROCEDURE:(Brandon 05/31/18) TRACHEOSTOMY, DISSECTION NECK (L), GLOSSECTOMY - PARTIAL (L) Assessment & Plan (08/08/2018 3:12 PM CDT): Followed by Dr. Miller (oncology) and Dr. Kim (rad onc) now s/p 2 cycles of Neoadjuvant Pembro on Study (C2D1 05/11/18), left tongue hemoiglossectomy with left neck dissection with 0/22 nodes positive now undergoing adjuvant radiation s/p treatments. - Will have scheduled radiation treatment today while inpatient. Plan to discharge home afterwards with outpatient follow-up - See below for pain regimen, continuing home fentanyl patch. Assessment & Plan (08/06/2018 4:10 PM CDT): Followed by Dr. Miller (oncology) and Dr. Kim (rad onc) now s/p 2 cycles of Neoadjuvant Pembro on Study (C2D1 05/11/18), left tongue hemoiglossectomy with left neck dissection with 0/22 nodes positive now undergoing adjuvant radiation s/p treatments. - Continue outpatient follow up. - See below for pain regimen, continuing home fentanyl patch. Assessment & Plan (08/06/2018 4:00 PM CDT): Followed by Dr. Miller (oncology) and Dr. Kim (rad onc) now s/p 2 cycles of Neoadjuvant Pembro on Study (C2D1 05/11/18), left tongue hemoiglossectomy with left neck dissection with 0/22 nodes positive now undergoing adjuvant radiation s/p treatments. - Continue outpatient follow up. - See below for pain regimen, continuing home fentanyl patch. Assessment & Plan (08/05/2018 3:23 PM CDT): Followed by Dr. Miller (oncology) and Dr. Kim (rad onc) now s/p 2 cycles of Neoadjuvant Pembro on Study (C2D1 05/11/18), left tongue hemoiglossectomy with left neck dissection with 0/22 nodes positive now undergoing adjuvant radiation s/p treatments. -Continue outpatient follow up. -Pain control with home fentanyl Immunizations Immunization Administration Dates Next Due Influenza, Quadrivalent, Hig h Dose, Preservative Free, Intrr 01/03/2020 Influenza, Unspecified 01/28/2023,02/09/2022, Pfizer SARS-CoV-2 Monovalent Vaccination (12+ Yrs) PURPLE 04/04/2021,09/10/2020,08/18/2020 Pfizer Sars-Cov-2 Bivalent V accination (12+ YRS) 01/26/2022 Social History Tobacco Use Types Packs/Day Years Used Date Smoking Tobacco: Former Cigarettes 1 45 1 956 - 1975 Smokeless Tobacco: Never Tobacco Cessation:Counseling Given: Not Answered Alcohol Use Standard Drinks/Week Comments Yes 3 (1 standard drink = 0.6 oz pur e alcohol) daily AUDIT-C Answer Date Recorded Q1: How often do you have a drink containing alc ohol? 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 Gender Identity Female 07/24/2020 10:39 AM CDT Sexual Orientation Straight 10/26/2018 8: 07 AM CDT Occupation Industry Job Start Date Job End Date Retired Not on file Not on file Not on file Last Filed Vital Signs Vital Sign Reading Time Taken Comments Blood Pressure 175/68 09/08/2024 1:16 PM CDT Pulse 69 09/08/2024 1:16 PM CDT Temperature 36.6 C (97.8 F) 09/08/2024 1:16 PM CDT Respiratory Rate 16 09/08/2024 1:16 PM CDT Oxygen Saturation 98% 09/08/2024 1:16 PM CDT Inhaled Oxygen Concentration - - Weight 40.3 kg (88 lb 13.5 oz) 09/08/2024 1:16 P M CDT Height 157.4 cm (5' 1.97) 09/08/2024 1:16 PM CD T w shoes Body Mass Index 16.27 09/08/2024 1:16 PM CDT Plan of Treatment Not on file Medical Devices Implanted Type Area Pathology Lab Technician Device Identifier Shelf Expiration Date Model / Serial / Lot [employer] Nik [id number] [place] Microvascular 3.5mm Ring Pin Protective Cover Jaw Assembly Latex Free - [id number] - [id number] Implanted:Qty: 2 on 05/31/2018 by Michael Taylor MD at [facility] [employer] 11/15/2022 [id number] / [id number] / Procedures Procedure Name Priority Date/Time Associated Diagnosis Comments XR SPINE LUMBAR 2 OR 3 VIEWS Schedule Routine, Read Routine (OP Routine) 09/08/2024 2:10 PM CDT Acute bilateral low back pain, unspecified whether sciatica present CT SOFT TISSUE NECK WO CONTRAST Schedule Routine, Read Routine (OP Routine) 09/04/2024 11:57 AM CDT from Last 3 Months Results * XR Spine Lumbar 2 or 3 Views (09/08/2024 2:10 PM CDT) Anatomical Region Laterality Modality Spine N/A Digital Radiogra phy 09/08/2024 3:01 PM CDT Narrative 09/08/2024 3:03 PM CDT EXAM DESCRIPTION: XR SPINE LUMBAR 2 OR 3 VIEWS REASON FOR STUDY: new onset back pain Chronic lower back pain with new left sided back pain to the left posterior hip for the past few weeks. No recent injury. No prior surgery to the lumbar spine. FINDINGS: Two views of the lumbar spine are submitted for interpretation. Comparison PET-CT 06/03/2023. Moderate dextroscoliosis at L1-L2. Moderate retrolisthesis at L2-L3 and L1-L2. No compression fracture seen. Multilevel degenerative disc disease is greatest and severe at L2-L3. Bilateral multilevel facet osteoarthritis is present. There are atherosclerotic vascular calcifications. Left midabdomen clips are present. IMPRESSION: Moderate dextroscoliosis apex at L1-L2. Multilevel lumbar spine degenerative disc disease greatest and severe at L2-L3. THIS IS AN ELECTRONICALLY VERIFIED FINAL REPORT 09/08/2024 3:03 PM - Electronically signed by Russ Dillard M.D. T: Report ID: [id number] Reading Location: [id number] Procedure Note Russ Dillard MD - 09/08/2024 EXAM DESCRIPTION: XR SPINE LUMBAR 2 OR 3 VIEWS REASON FOR STUDY: new onset back pain Chronic lower back pain with new left sided back pain to the leftposterior hip for the past few weeks. No recent injury. No prior surgery to thelumbar spine. FINDINGS: Two views of the lumbar spine are submitted for interpretation. Comparison PET-CT 06/03/2023. Moderate dextroscoliosis at L1-L2.Moderate retrolisthesis at L2-L3 and L1-L2. No compression fracture seen.Multilevel degenerative disc disease is greatest and severe at L2-L3. Bilateral multilevel facet osteoarthritis is present. There are atherosclerotic vascular calcifications. Left midabdomen clips are present. IMPRESSION: Moderate dextroscoliosis apex at L1-L2. Multilevel lumbar spine degenerative disc disease greatest and severe at L2-L3. THIS IS AN ELECTRONICALLY VERIFIED FINAL REPORT 09/08/2024 3:03 PM - Electronically signed by Russ Dillard M.D. T: Report ID: [id number] Reading Location: [place] [address] Duy Montalvo DO IMG XR PROCEDURES Final Resu lt * CT Neck Soft Tissue WO Contrast (09/04/2024 11:57 AM CDT) Anatomical Region Laterality Modality Head and Neck N/A Computed Tomogra phy Historical Provider IMG CT PROCEDURES Final R esult from Last 3 Months Insurance [facility] MEDIC[facility] Address: [facility] [address] [place] [address] MEDICARE ANTHEM ACCESS CHOICE ANTHEM ACCESS Social [employer] ACCESS OOS MEDICARE [facility] UHC MEDICARE AD[facility]ANTAGE [facility] Address: [address] [address] [place] [address] Advance Directives For more information, please contact: [phone] * Full Code (Latest Code Status on File) Date Activated Date Inactivated Comments 11/29/2019 10:30 AM 11/29/2019 4:50 PM * Full Code Date Activated Date Inactivated Comments 08/05/2018 2:54 PM 08/08/2018 9:41 PM * Full Code Date Activated Date Inactivated Comments 06/15/2018 8:52 PM 08/05/2018 9:24 AM * Full Code Date Activated Date Inactivated Comments 05/31/2018 8:28 PM 06/13/2018 5:30 PM Care Teams Handicapper [employer] Relationship Specialty Start Date End Date Justin De La Fuente MD [address] [facility] [place] [address] PCP - General Family Medicine 11/22/23 Michael Taylor MD Surgeon Transplant Surgery 04/07/18 James Kim MD Radiation Oncologist Radiation Oncology 10/26/18 Duy Montalvo DO [facility] MEDICAL ONCOLOGY, [facility] [address] [place] [address] Medical Oncologist/Hematologis t Hematology and Oncology 10/26/20
--- OUTSIDE RECORDS SUMMARY | 2024-12-04 12:01 | XMS_ITS | Clinical Summary ---
Author Organization [facility] [place] [place] [address] Address [address] [place] [address] Care Team Providers Care Digester Capper Name Role Phone Michael Taylor MD Unavailable James Kim MD Unavailable Duy Montalvo DO Unavailable [phone] Justin De La Fuente MD Primary Care Provider [phone] Allergies No known active allergies Medications aspirin [...] nutrition 08/05 by VIR. - TFs started 4/6 with bolus feeds using Ensure Plus starting [...] follow up. -Pain control with home fentanyl Encounters Date Type Department Care Team Description 09/11/2024 Results Follow-Up [facility] Oncology [address] [place] [address] [address] [place] [address] Kassandra Montoya, GARRY XR Spine Lumbar 2 or 3 Views 09/08/2024 2:00 PM CDT Ancillary Procedure [facility] Medical Group Imaging at [address] [address] Acute bilateral low back pain, unspecified whether sciatica present 09/08/2024 1:15 PM CDT Office Visit [facility] Oncology [address] [place] [address] [address] [place] [address] Duy Montalvo, 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); 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); Acute bilateral low back pain, unspecified whether sciatica present 09/04/2024 Orders Only [facility] Oncology [address] [place] [address] [address] [place] [address] Provider, MD Hayden from Last 3 Months Immunizations Immunization Administration Dates Next Due Influenza, Quadrivalent, Hig h Dose, Preservative Free, Intrr 01/03/2020 Influenza, Unspecified 01/28/2023,02/09/2022, Pfizer SARS-CoV-2 Monovalent Vaccination (12+ Yrs) PURPLE 04/04/2021,09/10/2020,08/18/2020 Pfizer Sars-Cov-2 Bivalent V accination (12+ YRS) 01/26/2022 Surgical History Surgery Date Site/Laterality Comments CARDIAC STENT PLACEMENT 1997 and 2007 TONGUE BIOPSY / EXCISION 05/03/2013 - 05/02/2014 TUBAL LIGATION 05/03/1971 - 05/02/1972 IR G TUBE PLACEMENT PERCUTANEOUS 08/05/2018 N/A CHANGE G TUBE 10/21/2018 N/A CHANGE G TUBE 11/29/2019 N/A CHANGE G TUBE 12/30/2019 N/A ENTERIC TUBE INJECTION 01/01/2020 N/A COLONOSCOPY CHOLECYSTECTOMY 07/17/2020 Medical History Medical History Date Comments Hypertension Post-operative nausea and vomiting 06/07/2018 HL (hearing loss) Coronary artery disease Cancer (HCC) Dental disease 2021 Acute respiratory failure 06/06/2018 Hypoalbuminemia 06/07/2018 Family History Medical History Relation Name Comments Heart disease Father Cancer Mother Lucille Maza Heart attack Paternal Grandmother Relation Name Status Comments Father Mother Lucille Maza Paternal Grandmother Social History Tobacco Use Types Packs/Day Years [...] on file 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 Gender Identity Female 07/24/2020 10:39 AM CDT Sexual Orientation Straight 10/26/2018 8: 07 AM CDT Occupation Industry Job Start Date Job End Date Retired Not on file Not on file Not on file Obstetrics History Last Filed Vital Signs Vital Sign Reading [...] 09/08/2024 1:16 PM CDT Plan of Treatment Health Maintenance Due Date Last Done Comments Depression Screening 1940 Osteoporosis Screening-Bone Density Scan 1940 DTaP/Tdap/Td Vaccine (1 - Tdap) 1952 Hepatitis B Screening 07/08/1959 Pneumococcal vaccine 65+ (1 of 2 - PCV) 1960 Zoster Vaccine (1 of 2) 1960 Well Visit 65+ 2006 Fall Risk Assessment 12/29/2020 12/30/2019 Covid-19 Vaccine (5 - 2023-2 5 season) 2024 01/26/2022, 04/04/2021, 09/10/2020, Additional history exists Influenza Vaccine (#1) 2025 , 02/09/2022, 01/17/2021, Additional history exists Medical Devices Implanted Type Area Die Trouble Shooter Device Identifier Shelf Expiration Date Model / Serial / Lot [employer] [id number] [place] Microvascular 3.5mm Ring Pin Protective Cover Jaw Assembly Latex Free - [id number] - [id number] Implanted:Qty: 2 on 05/31/2018 by Michael Taylor MD at [facility] [employer] 11/15/2022 [id number] / [id number] / Procedures Procedure Name Priority Date/Time Associated [...] by Russ Dillard M.D. T: Report ID: [id number] Reading Location: [id number] Procedure Note Russ Dillard MD - 09/08/2024 [...] by Russ Dillard M.D. T: Report ID: [id number] Reading Location: [place] [address] Duy Montalvo DO IMG XR PROCEDURES Final Resu lt * CT Neck Soft Tissue WO Contrast (09/04/2024 11:57 AM CDT) Anatomical Region Laterality Modality Head and Neck N/A Computed Tomogra phy Historical Provider IMG CT PROCEDURES Final R esult from Last 3 Months Insurance UHC MEDICARE ADVANTAGE [facility] MEDICARE Address: [facility] [address] [place] [address] MEDICARE ANTHEM ACCESS CHOICE ANTHEM ACCESS Member Subscriber Plan / Payer ( fective 2019-Present) Name:Darcy Dumas Relation to Subscriber:Spouse Name:DARCY DUMAS Date of :1941 (Home) Address: [address] [place] [address] Payer ID:[id number] (NAIC) Type:[employer] Address: [address] ACCESS OOS MEDICARE [facility] TRADITIONAL [facility] MEDICARE ADVANTAGE [facility] MEDICARE Address: [address] [address] [place] [address] Advance Directives For more information, please contact: [phone] * Full Code (Latest Code Status on File) Date Activated Date Inactivated Comments 11/29/2019 10:30 AM 11/29/2019 4:50 PM * Full Code Date Activated Date Inactivated Comments 08/05/2018 2:54 PM 08/08/2018 9:41 PM * Full Code Date Activated Date Inactivated Comments 06/15/2018 8:52 PM 08/05/2018 9:24 AM * Full Code Date Activated Date Inactivated Comments 05/31/2018 8:28 PM 06/13/2018 5:30 PM Care Teams Digester Capper Relationship Specialty Start Date End Date Justin De La Fuente MD [address] [facility] [place] [address] PCP - General Family Medicine 11/22/23 Michael Taylor MD Surgeon Transplant Surgery 04/07/18 James Kim MD Radiation Oncologist Radiation Oncology 10/26/18 Duy Montalvo DO [address] [place] [address] MEDICAL ONCOLOGY, [address] [address] Medical Oncologist/Hematologis t Hematology and Oncology 10/26/20
--- OUTSIDE RECORDS SUMMARY | 2024-12-04 12:01 | XMS_ITS ---
Author Organization [facility] [address] Address [address] [place] [address] Care Team Providers Care General Utility Worker Name Role Phone Michael Taylor MD Unavailable James Kim MD Unavailable Duy Montalvo DO Unavailable [phone] Justin De La Fuente MD Primary Care Provider Active Problems Problem Noted Date Diagnosed Date [...] - s/p G tube placement for nutrition 4/5 by VIR. - TFs started 08/06 with [...] - s/p G tube placement for nutrition 4/5 by VIR. - TFs started 08/06 with [...] follow up. -Pain control with home fentanyl Current Treatment and Therapy Plans No current plan information found. Past Treatment and Therapy Plans Oncology Chemotherapy Treatment Plan Name Start Date Discontinue Date Treatment Medications Discontinue Reason Plan Provider Cycles [id number] - [facility] - Head and Neck - Cohort 2 - Pre-Surgery MK-3475 04/20/20 18 09/19/2018 [facility] (2013--/MK- 3475-114) pembrolizumab (MK-3475) IVPB Therapy Complete Weston Miller MD 2 of 2 cycles started Oncology Supportive Care Therapy Plan Plan Name Start Date Discontinue Date Treatment Medications Discontinue Reason Plan Provider IV MAINTENANCE THERAPY PLAN 05/11/2018 09/19/2018 No medications scheduled. Therapy Complete Weston Miller MD Radiation Treatments * Course C1 HN 2019 07/15/2018 - 08/26/2018 Treatment Period Energy Fraction Dose Fractions Total Dose Plans Planned HN Prosthesis 07/15/2018 - 08/26/2018 200 29 / 6,600 Reference Points Delivered H_N 07/15/2018 - 08/26/2018 5,800 Lifetime Dose Tracking * Chemical Lifetime Dose Automatic Entry Manual Entr y Fluoro Time 5.4 minutes 5.4 minutes 0 minutes Air kerma at the reference point (Ka,r) 6 mGy 6 mGy 0 mGy DLP 2,730 mGycm 2,730 mGycm 0 mGycm Treatment Summaries Squamous cell carcinoma of tongue (HCC)* Images from the original note were not included. No information on file. , No information on file. This Survivorship Care Plan is a cancer treatment summary and follow-up plan and is provided to youto keep with your health care records and to share with your primary care provider or any of your doctors and nurses. This summary is a brief record of major aspects of your cancer treatment not a detailed or comprehensive record of your care. You should review this with your cancer provider. Treatment Summary and Survivorship Care Plan for Head and Neck Cancer Provided by HELLEN Wren on 10/26/18 General Information Patient name Darcy Bonilla (home) [phone] Date of 1940 Health Care Providers (Including Names, Institutions) Provider Name: Contact Information: Primary Care Physician Faby Linares [phone] Surgeon Michael Taylor MD [phone] Radiation Oncologist James Kim MD [phone] Medical Oncologist Weston Miller MD [phone] Speech Language Pathologist Katie Zayas [phone] Commercial Intelligence Manager Survivorship Ailyn Oritz PA-C [phone] Treatment Summary Cancer Diagnosis Information Diagnosis Squamous cell carcinoma of tongue (CMS/HCC) Diagnosis date 04/07/2018 Staging information Cancer Staging Squamous cell carcinoma of tongue (CMS/HCC) Staging form: Oral Cavity, AJCC 8th Edition - Clinical stage from 04/07/2018: Stage JON (cT2, cN2b, cM0) - Signed by Sarah Marshall MD on 07/19/2018 - Pathologic stage from 05/31/2018: Stage I (ypT1, pN0, cM0) - Unsigned Family History Cancer Cancer-related family history includes Cancer in her mother. Small cell lung cancer Genetic Testing Genetic/hereditary risk factors(s) or predisposing condition: n/a Genetic Test Results Comments Treatment Completed Surgery Surgery date 05/31/2018 Surgical procedure / location / findings Left partial glossectomy with RFFF reconstruction and leftneck dissection Radiation Radiation Treatments Active No active radiation treatments to show. Historical Plans HN Prosthesis Most recent treatment: Dose planned: 200 cGy (fraction 29 on 08/26/2018) Total: Dose planned: 6,600 cGy Elapsed Course Treatment Days: 42 Reference Points H_N Most recent treatment: Dose given: 200 cGy (on 08/26/2018) Total: Dose given: 5,800 cGy Elapsed Course Treatment Days: 42 Systemic Therapy (chemotherapy, hormonal therapy, other) [id number] - [facility] - Head and Neck - Cohort 2 - Pre-Surgery MK-3475 Treatment goal Curative Status Inactive Start Date 04/20/2018 End Date 05/11/2018 Provider Weston Miller MD Chemotherapy [facility] pembrolizumab (MK-3475) (2013--118/MK-3475-114) 200 mg in sodium chloride 0.9% 100 mL IVPB, 200 mg, intravenous, Once, 2 of 2 cycles Administration: 200 mg (04/20/2018), 200 mg (05/11/2018) IV MAINTENANCE THERAPY PLAN Treatment goal [No plan goal] Status Inactive Start Date [No treatment day found] End Date 05/11/2018 Provider Weston Miller MD Chemotherapy [No matching medication found in this treatment plan] Lifetime Dose Tracking Lifetime Dose Tracking No doses have been documented on this patient for the following tracked chemicals: doxorubicin, epirubicin, idarubicin, daunorubicin, mitoxantrone, bleomycin, mitomycin, cyclophosphamide, carmustine,ifosfamide, etoposide, doxorubicin HCl pegylated liposomal, etoposide phosphate, valrubicin, doxorub icin isotoxic equivalent Research Studies ANALYSIS OF HISTOLOGICAL, GENOMIC, MOLECULAR, AND CLINICAL FACTORS IN HEAD AND NECK CANCER: THE TISSUE ACQUISITION PROTOCOL (TAP) Status On study Start Date 04/06/18 IMMUNOTHERAPY WITH MK-3475 IN LOCOREGIONALLY ADVANCED, SURGICALLY RESECTABLE HEAD AND NECK SQUAMOUSCELL CARCINOMA Status On treatment Start Date 04/12/18 NCT [id number] [facility] HEAD & NECK CARCINOMA REGISTRY PROTOCOL - PROSPECTIVE REGISTRY OF PATIENTS WITH NEWLY DIAGNOSED HEAD AND NECK CARCINOMA Status On study Start Date 09/28/18 Treatment Ongoing: No, not at this time Persistent symptoms or side effects that have continued after finishing treatment: difficulty swallowing, dry mouth, difficulty opening your mouth (trismus), Other: neck tightness/cramping Follow Up Care Plan Your follow-up care plan is design to inform you and primary care providers regarding the recommended and required follow-up, cancer screening and routine health maintenance that is needed to maintain optimal health. Coordinating Provider When/How often MD Michael Sweet MD Wade Larry Thorstad, MD Year 1: Every 1-3 months Year 2: Every 2-6 months Year 3-5: Every 4-8 months After Year 5: Every year Dentist: Yearly exam and cleaning at a minimum Faby Linares Yearly for general health recommendations Cancer Surveillance or other Recommended Tests Coordinating Provider Test How Often Weston Miller MD Repeat pre-treatment baseline imaging Within 6 months of treatment completionfor new baseline, then as needed James Kim MD TSH if neck irradiated Every 6-12 months Weston Miller MD Chest CT (low dose) without contrast Yearly for smokers or history of smoking Possible late- and long-term effects that someone with this type of cancer and treatment may experience: Dental problems: Difficulty opening your moth (Trismus; lock jaw) Loose teeth Swallowing difficulties Tooth decay Chewing difficulties Exposed bone Numbness/tingling Dry mouth See dentist and discuss management. Fatigue Memory/concentration difficulty Muscle tightness/weakness Lymphedema Lymphedema The risk for developing lymphedema varies across treatments, time and the patient. This may occur right after surgery or months to years after treatment. It affects 12 to 25% of patients. The risk increases with the removal of lymph nodes, radiation therapy and injury. Avoid blood pressure or blooddraw in affected arm if lymph nodes were removed. If you experience skin tightness, swelling, warmth or redness in your affected side, tell your provider right away. Physical therapy can improve lymph drainage. Talk with your provider about approved exercise. Avoid extreme temperature, injury or infection on the affected side. Talk to your provider about a compression stocking, especially when flying. Please continue to see your primary care provider for all general health care recommended for a person your age, including cancer screenings tests. Any symptoms should be brought to the attention of your provider: Anything that represents a brand new symptom; Anything that represents a persistent symptom; Anything you are worried about that might be related to the cancer coming back. Cancer survivors may experience issues with the areas listed below. If you have any concerns in these or other areas, please speak with your doctors or nurses to find out how you can get help with them. Anxiety and depression Emotional and mental health Fatigue Fertility Financial advice or assistance Insurance Memory or concentration loss Parenting Physical functioning School/work Sexual functioning Stopping smoking Weight changes Other A number of lifestyle/behaviors can affect your ongoing health, including the risk for the cancer coming back or developing another cancer. Discuss these recommendations with your doctor or nurse: Eat a healthy diet: focus on lean meats and proteins, more fruits, vegetables and whole grains and low in sugars and fats. Limit red meat and avoid processed meat. Maintain a healthy weight; avoid being overweight. Aim for a normal body mass index (BMI) of 18.5-24.9. Help learning to eat healthier, call the patient registration manager at: [facility] . Have an active lifestyle, strive for 30 minutes of moderate exercise 5 times a week and strength orresistance training at least twice a week. Use broad-spectrum (UVA+UVB) sunscreen with SPF 30 or greater, is water resistant, limit time spentin the sun (10 am-4pm), wear hat, wear UV protective clothing, wear sunglasses. Never use a tanningbed. Skin that was irradiated may be more sensitive over your lifetime. Do not smoke or chew tobacco; participate in a smoking cessation program. Limit alcohol intake, 1 drink per day for a woman and 2 drinks per day for a man. See dentist at least yearly. Resources you may be interested in: [facility] http://www.[facility]/ [facility] & Cancer Information Center 1st floor of [facility] [phone]. Computer access, educational material, counseling services (FREE) Cancer Resources: www.cancer.net National Cancer [place]: http://www.cancer.gov/ [place] Disabilities Act: The U.S. Department of Justice provides information about the Americans with Disabilities Act (ADA). Toll free number http://www.ada.gov/ Support for People with Oral and Head and Neck Cancer, Inc. (SPOHNC): dedicated to raising awareness and meeting the needs of oral and head and neck cancer patients through its resources and publications. https://www.spohnc.org/index.php Occupational Therapy at [facility]. Improve memory and thinking following chemotherapy. Improve your performance at home, work and in the community. or Toll free www.ot.[facility]/patients National Coalition for Cancer Survivorship: http://www.canceradvocacy.org/ [place] Cancer Society Cancer Survivors Network: http://csn.cancer.org/ LIVE STRONG at the [employer] is a twelve-week, small group program designed to help adult cancer survivors become more physically active after cancer diagnosis: http://www.livestrong.org/what-we-do/our-act ions/programs-partnerships/pfppoabtfz-rp-ddn-[facility]/okgoqieldr-yzhd-hbqtigoue/ [facility] Stitch LabsTracker: www.International Youth Organizationer.Repairogen.gov Cancer Support Community: Our mission is to ensure that all people impacted by cancer are empowered by knowledge, strengthened by action, and sustained by community to enhance their overall well-being. http://www.cancersupportstl.org/ Obys9UzjzYphnwjn: Building support through a community of individuals with disfigurement to promotehealing through outreach, advocacy, interaction, activity, resources and education. http://bejy5dmbmadlbfmj.org/ Head and Neck cancer guide: http://headandneckcancerguide.org/adults/yeodmakyygse-qi-glzh-lka-vjry-mkirgm/ Springboard Beyond Cancer: https://survivorship.cancer.gov/ an online tool for cancer survivors andcaregivers created by the [place] Cancer Society and the National Cancer [place]. It provides: Information on dealing with side effects from cancer and treatment Caregivers with support and resources Practical advice about talking to friends and family about cancer Questions to ask their health care team Other comments:
[2024-12-04 12:28] LABS: Hematocrit 43.0 % (37.0-47.0); Hemoglobin 13.6 g/dL (12.0-15.0); Immature Granulocyte Percent A 0.3 % (0-0.5); Lymphocytes Absolute Auto 0.65 K/mm3 (0.9-3.2); Mean Corpuscular HGB Conc 31.6 g/dl (32-36); Mean Corpuscular Hemoglobin 27.2 pg (26-34); Mean Corpuscular Volume 86.0 fl (80-100); Nucleated Red Blood Cells Absolute Auto 0.000 K/mm3 (0.0-0.012); Nucleated Red Blood Cells Perc 0.0 % (0.0-0.2); Platelet Count Result 258 k/mm3 (150-375); Red Blood Count 5.00 M/mm3 (4.2-5.4); White Blood Count 7.5 K/mm3 (4.5-10.0)
[2024-12-04 12:45] LABS: Hemoglobin A1C 5.5 % (<5.7)
[2024-12-04 12:48] LABS: Alanine Aminotransferase 24 U/L (6-35); Albumin Level 4.3 g/dL (3.5-5.1); Alkaline Phosphatase 79 U/L (38-126); Anion Gap 5 mmol/L (4-12); Aspartate Amino Transferase 35 U/L (14-36); Bilirubin,Total 0.5 mg/dL (0.2-1.3); Blood Urea Nitrogen 35 mg/dL (7-17); Calcium 9.5 mg/dL (8.4-10.2); Carbon Dioxide 30 mmol/L (22-30); Chloride 102 mmol/L (98-107); Cholesterol 184 mg/dL (0-200); Estimated Glomerular Filt Rate > 60; Glucose 92 mg/dL (65-110); HDL Direct 73 mg/dL; Potassium 4.3 mmol/L (3.4-5.0); Sodium 137 mmol/L (137-145); Total Protein 7.7 g/dL (6.3-8.2); Triglycerides 135 mg/dL (<150); Uric Acid 4.2 mg/dL (2.5-7.5)
[2024-12-04 13:51] LABS: Thyroid Stimulating Hormone Reflex 12.700 uIU/mL (0.465-4.68)
[2024-12-04 14:37] LABS: Free T4 Free Thyroxine Reflex 0.73 ng/dL (0.78-2.19)
== END 2024-12-04 11:33 | disposition home or self-care (01) ==
PROVIDERS: PCP Family Medicine; Visit Provider Family Medicine
DX: M19.90 Unspecified osteoarthritis, unspecified site (principal); Z13.1 Encounter for screening for diabetes mellitus; E78.5 Hyperlipidemia, unspecified; I10 Essential (primary) hypertension
CPT/HCPCS: 36415; 80053; 80061; 83036; 84439; 84443; 84550; 85025

== ENCOUNTER 2025-03-14 14:03 | Outpatient (CLI) | payer MEDICARE, SELFPAY ==
--- OUTSIDE RECORDS SUMMARY | 2025-03-14 15:06 | XMS_ITS | Clinical Summary ---
Author Organization [facility] [address] Address [address] [place] [address] Care Team Providers Care Circle Shear Operator Name Role Phone Michael Taylor MD Unavailable James Kim MD Unavailable Duy Montalvo DO Unavailable [phone] Justin De La Fuente MD Primary Care Provider [phone] Allergies Active Allergy Reactions Criticality Noted Date Comments Atorvastatin Other (See comments),Unknown Low 11/16 Lipitor Ezetimibe-Simvastatin Other (See comments),Unknown Low 11/16/2018 Vytorin Rosuvastatin Other (See comments),Unknown Low 11/16 Crestor Medications aspirin 81 mg enteric coated tablet [...] mg total) by mouth daily 4 Active levothyroxine (SYNTHROID) 25 mcg tablet Take 1 tablet every day by oral route in the morning for 90 days. 5 Active Active Problems Problem Noted Date Diagnosed Date Status post insertion of drug eluting coronary a rtery stent 02/19/2025 Bilateral carotid artery stenosis 10/18/2023 Oral cancer 01/18/2023 Statin intolerance 01/30/2019 Protein-calorie malnutrition 08/05/2018 Assessment & Plan (08/08/2018 3:13 PM CDT): Lost 13 kg over the past 2 months (63kg -> 49.6kg). Secondary to oral SCC and poor PO intake. - s/p G tube placement for nutrition 4/5 by VIR. - TFs started 4/6 with [...] nutrition /5 by VIR. - TFs started 4/6 with [...] nutrition 4/5 by VIR. - TFs started 4/6 with [...] radiation currently due to significant mucositis. 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 (Primary Dx); Status post insertion of drug eluting coronary artery stent 02/07/2025 12:45 PM CDT Immunization [facility] at [address] [address] Flu vaccine need (Primary Dx) from Last 3 Months Immunizations Immunization Administration Dates Next Due Influenza, Quadrivalent, Hig h Dose, Preservative Free, Intrr 01/03/2020 Influenza, Trivalent, High D ose, Split, Preservative Free, Intramuscular 02/07/2025 Influenza, Trivalent, IM (MDV) 01/09/2010 Influenza, Unspecified 01/28/2023,02/09/2022, Pfizer SARS-CoV-2 Monovalent Vaccination (12+ Yrs) PURPLE 04/04/2021,09/10/2020,08/18/2020 Pfizer Sars-Cov-2 Bivalent V accination (12+ YRS) 01/26/2022 ZOSTER LIVE 11/19/2017,08/21/2017 Surgical History Surgery Date Site/Laterality Comments CARDIAC [...] on file Legal Sex Female 2:44 AM CATEGORY DEVELOPMENT ANALYST Gender Identity Female 07/24/2020 10:39 AM CDT Sexual Orientation Straight 10/26/2018 8: 07 AM CDT Occupation Industry Job Start Date Job End Date Retired Not on file Not on file Not on file Last Filed Vital Signs Vital Sign Reading Time Taken Comments Blood Pressure 160/90 02/19/2025 12:48 PM CDT Pulse 68 02/19/2025 12:48 PM CDT Temperature 36.6 C (97.8 F) 09/08/2024 1:16 PM CDT Respiratory Rate 16 09/08/2024 1:16 PM CDT Oxygen Saturation 95% 02/19/2025 12:48 PM CDT Inhaled Oxygen Concentration - - Weight 40.4 kg (89 lb) 02/19/2025 12:48 PM CDT Height 154.9 cm (5' 1) 02/19/2025 12:48 PM CDT Body Mass Index 16.82 02/19/2025 12:48 PM CDT Plan of Treatment Health Maintenance Due Date Last Done Comments Depression Screening 1940 Osteoporosis Screening-Bone Density Scan 1940 DTaP/Tdap/Td Vaccine (1 - Tdap) 1952 Hepatitis B Screening 07/08/1959 Pneumococcal vaccine 65+ (1 of 2 - PCV) 1960 Well Visit 65+ 2006 Zoster Vaccine (1 of 2) 01/14/2018 11/19/2017, 08/21 Fall Risk Assessment 12/29/2020 12/30/2019 Covid-19 Vaccine (2024-2 6 season) 2025 01/26/2022, 04/04/2021, 09/10/2020, Additional history exists Influenza Vaccine Completed 02/07/2025, , 02/09/2022, Additional history exists Medical Devices Implanted Type Area Negative Cutter Device Identifier Shelf Expiration Date Model / Serial / Lot Monkeysee Allian [id number] Scioto Microvascular 3.5mm Ring Pin Protective Cover Jaw Assembly Latex Free - [id number] - [id number] Implanted:Qty: 2 on 05/31/2018 by Michael Taylor MD at [facility] Monkeysee Nik 11/15/2022 [id number] / [id number] / Procedures Procedure Name Priority Date/Time Associated Diagnosis Comments ECG 12-LEAD Routine 02/19/2025 12:54 PM CDT Coronary artery disease involving soboba coronary artery of soboba heart without angina pectoris from Last 3 Months Results * ECG 12 lead (02/19/2025 12:54 PM CDT) us Nestor Schrader MD ECG ORDERABLES Edited R esult - Final from Last 3 Months Insurance UHC MEDICARE ADVANTAGE MEDICARE [facility] ACCESS CHOICE ANTH ACCESS ACCESS OOS MEDICARE [facility] MEDIC[facility] ADVANTAGE Advance Directives For more information, please contact: [phone] * Full Code (Latest Code Status on File) Date Activated Date Inactivated Comments 11/29/2019 10:30 AM 11/29/2019 4:50 PM * Full Code Date Activated Date Inactivated Comments 08/05/2018 2:54 PM 08/08/2018 9:41 PM * Full Code Date Activated Date Inactivated Comments 06/15/2018 8:52 PM 08/05/2018 9:24 AM * Full Code Date Activated Date Inactivated Comments 05/31/2018 8:28 PM 06/13/2018 5:30 PM Care Teams Circle Shear Operator Relationship Specialty Start Date End Date Justin De La Fuente MD [address] [place] [address] [place] [address] PCP - General Family Medicine 11/22/23 Michael Taylor MD Surgeon Transplant Surgery 04/07/18 James Kim MD Radiation Oncologist Radiation Oncology 10/26/18 Duy Montalvo DO [address] [place] [address] MEDICAL ONCOLOGY, [place] [id number] Medical Oncologist/Hematologis t Hematology and Oncology 10/26/20
--- OUTSIDE RECORDS SUMMARY | 2025-03-14 15:06 | XMS_ITS ---
Author Organization [facility] [address] Address [address] [place] [address] Care Team Providers Care Software Support Analyst Name Role Phone Michael Taylor MD Unavailable James Kim MD Unavailable Duy Montalvo DO Unavailable [phone] Justin De La Fuente MD Primary Care [...] - s/p G tube placement for nutrition / by VIR. - TFs started 08/06 with [...] - s/p G tube placement for nutrition 4 by VIR. - TFs started 08/06 with [...] nodes positive now undergoing adjuvant radiation s/p 33 treatments. - Continue outpatient follow up. - [...] Treatment Medications Discontinue Reason Plan Provider Cycles - [facility] - Head and Neck - Cohort 2 - Pre-Surgery MK-3475 04/20/20 18 09/19/2018 [facility] (2014-04-/MK- 3475-114) pembrolizumab (MK-3475) IVPB Therapy Complete Weston [...] General Information Patient name Darcy Bonilla (home) [phone] Date of 1940 Health Care Providers (Including Names, Institutions) Provider Name: Contact Information: Primary Care Physician Faby Linares [phone] Surgeon Michael Taylor MD [phone] Radiation Oncologist James Kim MD [phone] Medical Oncologist Weston Miller MD [phone] Speech Language Pathologist Katie Zayas [phone] Director Of Nurses Registry Survivorship Ailyn Ortiz PA-C [phone] Treatment Summary Cancer Diagnosis Information Diagnosis Squamous [...] 42 Systemic Therapy (chemotherapy, hormonal therapy, other) [id number] - [facility] - Head and Neck - Cohort 2 - Pre-Surgery MK-3475 Treatment goal Curative Status Inactive Start Date 04/20/2018 End Date 05/11/2018 Provider Weston Miller MD Chemotherapy [facility] pembrolizumab (MK-3475) (2013--118/MK-3475-114) 200 mg [...] Status On treatment Start Date 04/12/18 NCT [id number] [facility] HEAD & NECK CARCINOMA REGISTRY PROTOCOL - [...] Help learning to eat healthier, call the product marketing coordinator at: [facility] . Have an active lifestyle, strive for [...] yearly. Resources you may be interested in: [facility] Center [facility] Almo [facility] http://www.[facility]/ [facility] & Cancer Information Center 1st floor of [facility] [phone]. Computer access, educational material, counseling services (FREE) Cancer Resources: www.cancer.net National Cancer Almo: http://www.cancer.gov/ [place] Disabilities Act: The U.S. Department of Justice provides information about the Americans with Disabilities Act (ADA). Toll free number http://www.ada.gov/ Support for People with Oral and Head and Neck Cancer, Inc. (SPOHNC): dedicated to raising awareness and meeting the needs of oral and head and neck cancer patients through its resources and publications. https://www.spohnc.org/index.php Occupational Therapy at [facility]. Improve memory and thinking following chemotherapy. Improve your performance at home, work and in the community. or Toll free www.ot.[facility]/patients National Coalition for Cancer Survivorship: http://www.canceradvocacy.org/ [place] Cancer Society Cancer Survivors Network: http://csn.cancer.org/ LIVE STRONG at the [employer] is a twelve-week, small group program designed to help adult cancer survivors become more physically active after cancer diagnosis: http://www.livestrong.org/what-we-do/our-act ions/programs-partnerships/oalnsvukfv-jq-vap-nyu [facility]/dbdjokyqeg-ilrf-eebutmdrj/ [facility] SuperTracker: www.Gearworkscker.[employer].gov Cancer Support Community: Our mission is to ensure that all people impacted by cancer are empoweredby knowledge, strengthened by action, and sustained by community to enhance their overall well-being. http://www.cancersupportstl.org/ Goky3TprvBpssoub: Building support through a community of individuals with disfigurement to promotehealing through outreach, advocacy, interaction, activity, resources and education. http://wwwi9uwjoslkqhrp.org/ Head and Neck cancer guide: http://headandneckcancerguide.org/adults/dchgndrgtmch-nq-rmfz-mki-hebc-bzebin/ Springboard Beyond Cancer: https://survivorship.cancer.gov/ an online tool for cancer survivors andcaregivers created by the [place] Cancer Society and the National Cancer Almo. It provides: Information on dealing with side effects from cancer and treatment Caregivers with support and resources Practical advice about talking to friends and family about cancer Questions to ask their health care team Other comments:
--- OUTSIDE RECORDS SUMMARY | 2025-03-14 15:07 | XMS_ITS | Data Portability ---
Author Organization [place] [employer], Main Office Address [address] [place] [address] Care Team Providers Care Income Tax Auditor Name Role Phone DE LA FUENTEBENITA MADDOXJUSTIN Primary Care Provider [phone] Assessment Encounter Date Assessment Date Assessment LastModified by Organization Details LastModified Time 08/26/2023 08/26/2023 83 yo F with - WELL ADULT VISIT - HTN - HLD - CHRONIC INSOMNIA - OA - CHEST PAIN - DYSPHAGIA - H/O TONGUE CANCER (2019, S/p radiation) D/w pt about her findings, recent labs & imagines and further plan of care. Will do routine labs. Will refer pt to Cardio. Meds as directed. Diet and exercise explained in detail. Fall risk precautions explained. Cont f/u with Onco and Oral surgeon Jean BROOKS as per schedule. Cont f/u with Ophtho as per schedule. Cont f/u with GI as per schedule. HM: WWE - Pt declined. Mammo - Pt declined. DEXA - Pt declined. Colonoscopy - Pt declined. Flu - 03/25. Tdap - 2017. Pneumo - Pt had it. Shingrix - At pharmacy/HD. F/u in 2-3 weeks. Annual labs in 08/25. [email or web address] Not available 08/26/2023 15:57:44 11/27/2024 11/27/2024 84 yo F with - WELL ADULT VISIT - B/L EAR WAX - HTN - HLD - CHRONIC INSOMNIA - OA - CHEST PAIN - DYSPHAGIA, chronic - H/O TONGUE CANCER (2019, S/p radiation) D/w pt about her findings, recent labs & imagines and further plan of care. Will do routine labs. Will refer pt to Cardio again. Meds as directed. Diet and exercise explained. Fall risk precautions explained. F/u with Cardio as per schedule. Cont f/u with Onco and Oral surgeon Jean BROOKS as per schedule. Cont f/u with Ophtho as per schedule. Cont f/u with GI as per schedule. HM: WWE - Pt declined. Mammo - Pt declined. Risks explained. DEXA - Pt declined. Risks explained. Colonoscopy - Pt declined. Risks explained. Flu - 03/25. Tdap - 2017. Pneumo - Pt had it. Shingrix - At pharmacy/HD. F/u in 2-3 weeks. B/l ear flushing on next visit. Annual labs in 11/25. [email or web address] Not available 11/27/2024 14:35:11 12/26/2024 12/26/2024 84 yo F with - B/L EAR WAX; s/p flushing today - HYPOTHYROIDISM , new - HTN - HLD - CHRONIC INSOMNIA - OA - CHEST PAIN - DYSPHAGIA, chronic - H/O TONGUE CANCER (2019, S/p radiation) Annual labs: 12/04/24. D/w pt about her findings, recent labs & imagines and further plan of care. Pt did well with ear flushing, no problems. Meds as directed. Diet and exercise explained. Fall risk precautions explained. F/u with Cardio as per schedule. Cont f/u with Onco and Oral surgeon Jean BROOKS as per schedule. Cont f/u with Ophtho as per schedule. Cont f/u with GI as per schedule. HM: WWE - Pt declined. Mammo - Pt declined. Risks explained. DEXA - Pt declined. Risks explained. Colonoscopy - Pt declined. Risks explained. Flu - 03/25. Tdap - 2017. Pneumo - Pt had it. Shingrix - At pharmacy/HD. F/u in 3 months. TSH in 03/27. Annual labs in 11/25. [email or web address] Not available 12/26/2024 14:25:41 Plan of Treatment Reminders Order Date Submit Date Provider Last Modified By Organization Details Last Modified Time Details Appointments Any 15 2024 02:15P Victor M De La Fuente MD Not available Not available Not available Lab TSH, serum or plasma 2024 025 [facility] (Lab), [address] [place], [address], 03/13/2025 15:14:49 uric acid, serum or plasma [address] (Lab), [address] [place], [address], 12/05/2024 11:54:41 vitamin D3, 25-hydrox y, serum [address] (Lab), [address] [place], [address], 12/05/2024 11:54:41 CBC w/ auto diff [address] (Lab), [address] [place], [address], 12/05/2024 11:54:39 CMP, serum or plasma [address] (Lab), [address] [place], [address], 12/05/2024 11:54:40 urinalysi s complete, reflex culture [address] (Lab), [address] [place], [address], 12/05/2024 11:54:40 lipid panel, serum [address] (Lab), [address] [place], [address], 12/05/2024 11:54:40 TSH, serum or plasma [address] (Lab), [address] [place], [address], 12/05/2024 11:54:40 HbA1c (hemoglob in A1c), blood 2024 025 [facility] (Lab), [address] [place], [address], 12/05/2024 11:54:41 uric acid, serum or plasma [address] (Lab), [address] [place], [address], 09/02/2023 08:14:38 CBC w/ auto diff [address] (Lab), [address] [place], [address], 09/02/2023 08:14:38 CMP, serum or plasma [address] (Lab), [address] [place], [address], 09/02/2023 08:14:38 urinalysi s complete, reflex culture [address] (Lab), [address] [place], [address], 09/02/2023 08:14:38 HbA1c (hemoglob in A1c), blood [address] (Lab), [address] [place], [address], 09/02/2023 08:14:38 lipid panel, serum [address] (Lab), [address] [place], [address], 09/02/2023 08:14:38 TSH, serum or plasma [address] (Lab), [address] [facility], [place], [address], 09/02/2023 08:14:38 Referral cardiolog ist referral - Please call patient to schedule an appointme nt. Thank you. 2024 025 [email or web address] [facility], [address], [address], [place], [address], 03/06/2025 16:21:59 cardiolog ist referral - Please call patient to schedule an appointme nt. Thank you. 2023 024 [email or web address] [facility], [address], [address], [place], [address], 09/23/2023 08:39:59 Procedures None recorded. Surgeries None recorded. Imaging None recorded. Medication Orders metoprolo l succinate ER 50 mg tablet,ex tended release 24 hr 2024 025 [facility], [address] [place] [address], [address], [place], [id number], 12/26/2024 14:15:47 levothyro xine 25 mcg tablet 2024 025 [facility], [address] [place] [address], [address], [place], [place], [id number], 12/26/2024 14:15:47 Lidocaine Viscous 2 % mucosal solution 2024 025 [id number], [address] [place], [place], [id number], 12/26/2024 14:15:59 metoprolo l succinate ER 50 mg tablet,ex tended release 24 hr 2024 025 [facility], [address] [place] [address], [address], [place], [place], [id number], 11/27/2024 14:25:56 Debrox 6.5 % ear drops 2024 025 [email or web address] [facility], [address], [address], [place], [place], [id number], 12/26/2024 14:25:47 amoxicill in 875 mg-potass ium clavulana te 125 mg tablet 2024 [address] [id number], [address] [facility], [place], [place], [id number], 12/11/2024 05:02:18 chlorhexi dine gluconate 0.12 % mouthwash 2024 025 [facility], [address], [address], [place], [place], [id number], 12/19/2024 05:01:59 metoprolo l succinate ER 50 mg tablet,ex tended release 24 hr 2023 024 [facility], [address] [place] [address], [address], [place], [place], [id number], 08/26/2023 15:12:20 Patient TargetsNo targets recorded. Patient Instructions Encounter Date Encounter Id Patient Instructions Last Modified By Organization Details Last Modified Time 12/15/2022 [id number] dementia rating scale-2* Not available 12/15/2022 12:34:09 depression screening* Not available 12/15/2022 12:34:09 alcohol misuse* Not available 12/15/2022 12:34:09 multi-dimensiona l health assessment questionnaire* Not available 12/15/2022 12:34:09 Personalized [facility] lt Plan and Screening Recommendations Advance Directives - Do you have one? Yes Advance Directives - Do we have your advance directive on file in your health record? Yes Primary Prevention/Interven tion (prevents or decreases the chance of common diseases from occurring) Smoking Risk: Non Smoker I have no recommendations. Alcohol Misuse Screening: Negative I have no recommendations. Weight: Underweight Physical activity: Appropriate physical activity Nutrition: Good Fall Risk (screened today): Low Refer to attached handout Preventing Falls: After your Visit Vaccines Pneumococcal: No further needed Influenza: Your next one in the fall of this year Chronic Disease Risks Stroke: Intermediate Risk Continue current treatment plan Heart Attack: Intermediate Risk Continue current treatment plan Clogging of the Arteries: Active diagnosis, Continue current treatment plan Diabetes: Low Risk I have no recommendations Secondary Prevention/Interven tion (detects treatable diseases before they may cause symptoms, disability, or ) Breast Cancer Screening with mammogram: No screening necessary Cervical/Uterine/Ov caitie Cancer Screening: No screening necessary Osteoporosis Screening: No screening necessary Date Screening Last Performed: Colon Cancer Screening: Colonoscopy No screening necessary Date Screening Last Performed: Eye Disease Screening: Recommended today Dementia Risk: Low I have no recommendations Depression Screening: Negative I have no recommendations. [email or web address] Not available 12/14/2022 12:29:24 FU in 1 year for MAWV after 12/17/23 Not available 12/15/2022 12:35:20 03/05/2023 [id number] 6 mo fu otherwise swallowing, weight, constipation, Hx tongue cancer, htn, dermatitis. 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 Thank you. 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 Thank you. Referring Physician: Justin De La Fuente, Family Medicine, Encounter Date: 11/27/2024 Results Created Date Observation Date Name Description Value Unit Range Abnormal Flag Note LastModifiedBy Organization Detail LastModifiedTime 02/24/20 23 02/22/2023 MRI, orbit s, w/o contr ast No observ ation record ed. [facility] [address], [place], [address], 02/24/2023 14:32:34 09/05/19 25 09/04/2024 imagi ng/di agnos tic resul t No observ ation record ed. [email or web address] [facility] [address], [place], [address], 12/26/2024 14:11:36 Result Notes None recorded. Problems Name Problem SNOMED Code Status Onset Date Resolution Date Notes Provider Name and Address Organization Details Recorded Time Benign hypertensi on 16277298 Active Not Available [employer] 3 05:56:08 Raynaud's disease 036353151 Active Not Available [employer] 3 05:56:08 Stable angina 066038717 Active Not Available [employer] 3 05:56:08 Thoracic back pain 643697675 Active Not Available [facility] 3 05:56:09 Rib pain 834832677 Active Not Available [facility] 3 05:56:09 Hypokalemi a 79260245 Active Not Available [facility] 3 05:56:09 Seasonal allergy 235784933 Active Not Available [facility] 3 05:56:09 Anxiety 86683108 Active Not Available [facility] 3 05:56:09 Coronary arterioscl erosis 06005867 Active Not Available [facility] 3 05:56:09 Hyperlipid emia 77983192 Active Not Available [facility] 3 05:56:09 Insomnia 823450229 Active 2018 Not Available [facility] 3 05:56:08 Biliary sludge 66517975 Active 2018 Not Available [facility] 3 05:56:09 Restless legs syndrome 36977027 Active 2018 Not Available [facility] 3 05:56:09 Stented coronary artery 655230206 Active 2018 Not Available [facility] 3 05:56:09 Tongue carcinoma 875490639 Active 2021 Not Available [facility] 3 05:56:09 Pruritic disorder 923650557 Active 2022 Faby Linares NP [address], [address], [place], [address] , [employer] [facility] 3 17:16:02 Low back pain 217080953 Active 2022 Faby Linares NP [address], [address], [place], [address] , [employer] [facility] 3 17:19:15 Difficulty swallowing 544919816 Active 2022 Faby Linares NP [address], [address], [place], [address] , [employer] [facility] 3 17:29:45 Constipati on 64611046 Active 2022 Faby Linares NP [address], [address], [place], [address] , [employer] - [employer] [facility] 3 17:30:36 Hypertensi ve disorder 42482125 Active 2023 Justin De La Fuente MD [address], [address], [place], [address] , [employer] [facility] 4 14:56:47 Chronic insomnia 183164603 Active 2023 Justin De La Fuente MD [address], [address], [place], [address] , [employer] [facility] 4 14:56:52 History of malignant neoplasm of tongue 784307662 Active 2023 Justin De La Fuente MD [address], [place], [address] , [facility] 4 15:08:16 Osteoarthr itis 880820561 Active 2023 Justin De La Fuente MD [address], [place], [address] , [facility] 4 15:14:40 Chest pain 40296641 Active 2023 Justin De La Fuente MD [address], [place], [address] , [facility] 4 15:16:47 Toothache 21383925 Active 2024 Justin De La Fuente MD [address], [place], [address] , [facility] 5 14:22:47 Impacted cerumen of bilateral ears 6892995414853 108 Active 2024 Justin De La Fuente MD [address], [place], [address] , [facility] 5 14:25:19 Aphthous ulceration of skin and/or mucous membrane 743666888 Active 2024 Justin De La Fuente MD [address], [place], [address] , [facility] 5 14:35:37 Hypothyroi dism 99610281 Active 2024 Justin De La Fuente MD [address], [place], [address] , [facility] 5 14:13:13 Problem Notes None recorded. Procedures Surgical History Date Name Laterality Status Provider Name and Address Organization Details Recorded Time 12/27/19 Ear Irrigation completed Justin De La Fuente MD [address], [place], [address], [facility] 12/26/2024 14:23:28 12/16/19 23 Medicare Wellness CPT Code, subsequent completed Denisha Saul RN [place] [facility] 12/14/2022 12:26:11 Cholecystectomy completed Not Available [facility] 07/01/2022 05:52:24 Imaging Results None recorded. Procedure Notes None recorded. Medical Equipment None Reported. Allergies Allergen ID Allergen Name Allergen Category Reaction Reaction Severity Criticality Documentation Date Start Date Code Code System Note Provider Name and Address Organization Details Recorded Time 55145 Vytorin medicatio n Not available Not available Not available 07/01/2022 79635 5 RxNorm leg cramp s Not Available [facility] 3 06:00:39 01348 Lipitor medicatio n Not available Not available Not available 07/01/2022 46377 5 RxNorm leg cramp s Not Available [facility] 3 06:00:39 80386 Crestor medicatio n Not available Not available Not available 07/01/2022 50290 4 RxNorm leg cramp s Not Available [facility] 3 06:00:39 Medications Name Sig Start Date Stop Date Status Note LastModified by Organization Details LastModified Time first-jorden thwash blm susp 09/30 completed Not Available Not Available Not Available fentanyl 50 mcg/hr transderm al patch 11/10 completed Not Available Not Available Not Available pilocarpi ne 5 mg tablet 12/10 completed Not Available Not Available Not Available nystatin 100,000 unit/mL oral suspensio n 12/10 completed Not Available Not Available Not Available metoprolo l succinate ER 50 mg tablet,ex tended release 24 hr Take 1 tablet every day by oral route as directed for 90 days. 2024 active Not Available Not Available Not Avai lable hydrocodo ne 5 mg-acetam inophen 325 mg tablet 09/30 completed Not Available Not Available Not Available Nystop 100,000 unit/gram topical powder 09/30 completed Not Available Not Available Not Available hydrocort isone 1 % topical ointment APPLY A THIN LAYER TO THE AFFECTED AREA(S) BY TOPICAL ROUTE 2 TIMES PER DAY prn 08/25 completed Not Available Not Available Not Available prednison e 20 mg tablet 12/10 completed Not Available Not Available Not Available metoprolo l succinate ER 100 mg tablet,ex tended release 24 hr TAKE 1 TABLET BY MOUTH DAILY 11/27 completed Not Available Not Available Not Available Debrox 6.5 % ear drops INSTILL 4 DROPS INTO AFFECTED EAR(S) BY OTIC ROUTE 2 TIMES PER DAY 12/26 completed Not Available Not Available Not Available penicilli n V potassium 500 mg tablet 09/30 completed Not Available Not Available Not Available amlodipin e 2.5 mg tablet Take 1 tablet every day by oral route as directed for 90 days. active Not Available Not Available No t Available sulfameth oxazole 800 mg-trimet hoprim 160 mg tablet 11/10 completed Not Available Not Available Not Available tramadol 50 mg tablet Take 1 tablet 3 times a day by oral route as needed. active Not Available Not Available No t Available triamcino lone acetonide 0.1 % topical cream APPLY A THIN LAYER TO THE AFFECTED AREA(S) BY TOPICAL ROUTE 2 TIMES PER DAY active Not Available Not Available No t Available amoxicill in 500 mg tablet 09/30 completed Not Available Not Available Not Available levothyro xine 25 mcg tablet Take 1 tablet every day by oral route in the morning for 90 days. 2024 active Not Available Not Available Not Avai lable potassium chloride ER 20 mEq tablet,ex tended release(p art/cryst ) Take 1 tablet every day by oral route for 30 days. 03/03 completed Not Available Not Available Not Available Nitrostat 0.4 mg sublingua l tablet Place by sublingu al route. Max: 3 doses w/in 15min; Info: store tablets in original glass containe r 11/24 completed PRN Not Available Not Available Not Available fentanyl 100 mcg/hr transderm al patch 11/10 completed Not Available Not Available Not Available amlodipin e 10 mg tablet Take 1 tablet every day by oral route as directed . 02/14 completed Not Available Not Available Not Available cephalexi n 500 mg capsule 12/10 completed Not Available Not Available Not Available nystatin 100,000 unit/gram topical cream 12/10 completed Not Available Not Available Not Available ursodiol 300 mg capsule 1 cap po bid for 3 mo 11/24 [address]art[address] Gomez Not Available Not Available Not Available lidocaine HCl 2 % mucosal solution TAKE 15 ML BY MOUTH EVERY 6 TO 8 HOURS NEEDED active Not Available Not Available No t Available lisinopri l 20 mg-hydroc hlorothia zide 25 mg tablet TAKE 1 TABLET DAILY IN THE MORNING 08/23 completed Not Available Not Available Not Available hydrocort isone 2.5 % topical cream active Not Available Not Available Not Available hydrochlo rothiazid e 25 mg tablet TAKE 1 TABLET DAILY active Not Available Not Available No t Available zolpidem 5 mg tablet 1 tab po nightly prn sleep 10/13 completed Not Available Not Available Not Available fentanyl 25 mcg/hr transderm al patch 11/10 completed Not Available Not Available Not Available scopolami ne 1 mg over 3 days transderm al patch 09/30 completed Not Available Not Available Not Available methylpre dnisolone 4 mg tablets in a dose pack FOLLOW PACKAGE DIRECTIO NS 11/27 completed Not Available Not Available Not Available fentanyl 75 mcg/hr transderm al patch 11/10 completed Not Available Not Available Not Available clotrimaz ole 1 % topical cream APPLY TOPICALL Y TO LIP TWICE DAILY. 01/08 completed Not Available Not Available Not Available amoxicill in 875 mg-potass ium clavulana te 125 mg tablet Take 1 tablet every 12 hours by oral route as directed for 7 days. 12/11 completed Not Available Not Available Not Available oxycodone 5 mg tablet 11/10 completed Not Available Not Available Not Available hydroxyzi ne pamoate 25 mg capsule TAKE 1 CAPSULE BY MOUTH THREE TIMES DAILY 12/10 completed Not Available Not Available Not Available Asprin Ec Low Dose 81 mg tablet,de layed release Take 1 tablet every day by oral route. 12/26 completed Not Available Not Available Not Available hydrocodo ne 7.5 mg-acetam inophen 325 mg/15 mL oral solution 11/10 completed Not Available Not Available Not Available fentanyl 12 mcg/hr transderm al patch 11/10 completed Not Available Not Available Not Available chlorhexi dine gluconate 0.12 % mouthwash Place 10 mL 3 times a day by mucous membrane route as directed for 15 days. 12/19 completed Not Available Not Available Not Available Fish Oil 1 PO QD 2014 active Not Available Not Available Not Avai lable One-A-Day Women's 50 Plus 1 PO QD 06/02 completed Not Available Not Available Not Available Belsomra 10 mg tablet 1 tab po nightly prn sleep 11/27 completed Not Available Not Available Not Available Shingrix (PF) 50 mcg/0.5 mL intramusc ular suspensio n, kit 11/10 completed Not Available Not Available Not Available Fluzone High-Dose Quad 2020-21 (PF) 240 mcg/0.7 mL IM syringe 01/08 completed Not Available Not Available Not Available Vitals Date Recorded Body height Body mass index (BMI) Body weight Body temperature Heart rate Respiratory rate Oxygen saturation Oxygen saturation in Arterial blood by Pulse oximetry Systolic And Diastolic Provider Name and Address Organization Details Last Updated DateTime 4 154.94 cm 16.5 kg/m2 04708.3 3 g 98.1 [degF] 64 /min 20 /min 99 % 99 % 118/84 mm[Hg] Juan Morales [place] Vdolg [facility] [employer] 4 15:02:56 Date Recorded Body height Body mass index (BMI) Body weight Body temperature Oxygen saturation Oxygen saturation in Arterial blood by Pulse oximetry Heart rate Systolic And Diastolic Provider Name and Address Organization Details Last Updated DateTime 5 154.94 cm 16.6 kg/m2 92320.1 3 g 97.1 [degF] 99 % 99 % 72 /min 130/80 mm[Hg] Hortencia Ross RN [facility] [employer] [facility] 5 14:13:10 Date Recorded Body height Body mass index (BMI) Body weight Body temperature Pain severity - 0-10 verbal numeric rating [Score] - Reported Respiratory rate Heart rate Oxygen saturation Oxygen saturation in Arterial blood by Pulse oximetry Systolic And Diastolic Provider Name and Address Organization Details Last Updated DateTime 3 154.94 cm 16.3 kg/m2 93708.0 4 g 96.2 [degF] 0 20 /min 66 /min 97 % 97 % 120/60 mm[Hg] Faby Loving RN [facility] [employer] [facility] 3 12:14:12 Date Recorded Body height Body mass index (BMI) Body weight Body temperature Oxygen saturation Oxygen saturation in Arterial blood by Pulse oximetry Heart rate Systolic And Diastolic Provider Name and Address Organization Details Last Updated DateTime 5 154.94 cm 16.5 kg/m2 63834.9 9 g 97.3 [degF] 97 % 97 % 72 /min 130/80 mm[Hg] Hortencia Ross RN [facility] [employer] [facility] 5 14:07:47 Date Recorded Systolic And Diastolic Provider Name and Address Organization Details Last Updated DateTime 03/05/2023 124/88 mm[Hg] Faby Linares NP [address], [place], [address], [facility] [employer] 03/05/2023 14:51:58 Date Recorded Body height Body mass index (BMI) Body weight Body temperature Pain severity - 0-10 verbal numeric rating [Score] - Reported Heart rate Respiratory rate Oxygen saturation Oxygen saturation in Arterial blood by Pulse oximetry Systolic And Diastolic Provider Name and Address Organization Details Last Updated DateTime 3 154.94 cm 16.1 kg/m2 52027.7 g 97.2 [degF] 0 58 /min 20 /min 98 % 98 % 158/80 mm[Hg] Faby Loving RN [facility] [place] [facility] 3 14:34:24 Social History Question Answer Notes LastModified by Organization Details LastModified Time Tobacco Smoking Status Former Smoker Not Available [employer] 07/01/2022 05:52:17 Do You Have An Advance Directive? Yes Living Will In Chart [id number] Information not available 07/01/2022 Are You Blind Or Do You Have Difficulty Seeing? No [id number] Information not available 07/01/2022 What Is Your Level Of Caffeine Consumption? Occasional One Vanilla Latte Per Day [email or web address] Information not available 11/27/2024 How Much Tobacco Do You Chew? None Information not available 08/26/2023 What Is Your Code Status? DNR Information not available 12/15/2022 In The 14 Days Before Symptom Onset, Have You Had Close Contact With A Laboratory-confi rmed COVID-19 While That Case Was Ill? No Information not available 09/30/2022 In The 14 Days Before Symptom Onset, Have You Had Close Contact With A Person Who Is Under Investigation For COVID-19 While That Person Was Ill? No Information not available 09/30/2022 Are You Deaf Or Do You Have Serious Difficulty Hearing? No MIGRATION.[id number] [id number] Information not available 07/01/2022 What Type Of Diet Are You Following? SPECIFIC Due To Tongue Cancer, Patient Drinks Boost Shakes Daily. Information not available 09/30/2022 Have There Been Any Changes To Your Family Or Social Situation? No MIGRATION.[id number] [id number] Information not available 07/01/2022 When Did You Quit Smoking? 16+yearssincelastc igarette Quit 1976 [email or web address] Information not available 11/27/2024 Are There Any Guns Present In Your Home? Yes Information not available 12/15/2022 Do You Use Insect Repellent Routinely? No MIGRATION.[id number] [id number] Information not available 07/01/2022 Where Do You Live? [facility] MIGRATION.0301 [id number] Information not available 07/01/2022 Presence Of Domestic Violence No Information not available 12/15/2022 Guns Present In The Home? Yes Information not available 12/15/2022 Are You Able To Care For Yourself? Yes Information not available 12/15/2022 Are You Blind Or Do Yo Have Difficulty Seeing? Yes Wears Glasses Information not available 12/15/2022 Are You Deaf Or Do You Have Serious Difficulty Hearing? No Information not available 12/15/2022 General Stress Level? Low Information not available 12/15/2022 Live Alone Of With Others? Alone Information not available 12/15/2022 Do You Have A Medical Power Of Window Air Conditioner Installer? No Information not available 09/30/2022 What Was The Date Of Your Most Recent Tobacco Screening? 12/10/2021 MIGRATION.[id number] [id number] Information not available 07/01/2022 What Is Your Current Pack Years? 20-29packyears [email or web address] Information not available 11/27/2024 Have You Ever Been Counseled For Unhealthy Alcohol Use? No Information not available 11/27/2024 Do You Have Any Pets? Yes Information not available 09/30/2022 What Is Your Relationship Status? Information not available 09/30/2022 Do You Use Your Seat Belt Or Car Seat Routinely? Yes MIGRATION.0301 [id number] Information not available 07/01/2022 Do You Have Smoke And Carbon Monoxide Detectors In Your Home? Yes MIGRATION.0301 [id number] Information not available 07/01/2022 At What Age Did You Start Smoking Tobacco? 15 [email or web address] Information not available 11/27/2024 Are There Any Smokers In Your House? No Information not available 09/30/2022 How Much Tobacco Do You Smoke? 1 PPD [email or web address] Information not available 11/27/2024 Do You Participate In Social Media? No Information not available 12/15/2022 Do You Use Sunscreen Routinely? No MIGRATION.0301 [id number] Information not available 07/01/2022 Has Tobacco Cessation Counseling Been Provided? No MIGRATION.0301 304437 Information not available 07/01/2022 How Many Years Have You Smoked Tobacco? 20 [email or web address] Information not available 11/27/2024 Have You Recently Traveled Abroad? No Information not available 09/30/2022 Do You Have Difficulty Walking Or Climbing Stairs? No MIGRATION.0301 247392 Information not available 07/01/2022 Sex: Unknown Functional Status Question Answer Note LastModified by Organizat ion Details LastModified Time Do you use any illicit or recreational drugs? No [email or web address] Information not available 11/27/2024 Do you or have you ever used any other forms of tobacco or nicotine? No [email or web address] Information not available 11/27/2024 What is your level of alcohol consumption? Occasional [email or web address] Information not available 08/26/2023 Do you or have you ever used smokeless tobacco? Never used smokeless tobacco [email or web address] Information not available 08/26/2023 Do you have transportation difficulties? No MIGRATION.67203 86681 Information not available 07/01/2022 Are you able to walk independently without assistance or assistive devices? YESWOREST MIGRATION.28329 93755 Information not available 07/01/2022 Do you have difficulty doing errands alone? No MIGRATION.20245 07557 Information not available 07/01/2022 Are you able to care for yourself independently? Yes MIGRATION.23265 64160 Information not available 07/01/2022 What is your occupation? retired Information not available 09/30/2022 Do you have difficulty dressing, bathing, grooming, or toileting? No MIGRATION.24449 90857 Information not available 07/01/2022 What is your exercise level? Occasional [email or web address] Information not available 08/26/2023 Mental Status Question Answer Note LastModified by Organizat ion Details LastModified Time Do you feel stressed (tense, restless, nervous, or anxious, or unable to sleep at night)? [id number] Information not available 12/15/2022 Do you have difficulty concentrating, remembering or making decisions? No MIGRATION.[id number] Information not available 07/01/2022 Family History Relationship Description Onset Age of this Age Resolved Age Notes LastModified by Organization Details LastModified Time Father Heart disease 39 [email or web address] Not available 2023 15:15:20 Medical History Condition Response HEART DISEASE/HEART PROBLEMS Y CANCER: SPECIFY Y INSOMNIA Y HYPERTENSION Y Gynecological History Statement/Question Response Abnormal Pap N HPV Vaccine N Current Control Method None Date of Last Colonoscopy Most Recent Mammogram Most Recent Bone Density N Obstetrics History GPAL:G 0 P 0 0 0 0 Immunizations Vaccine Type Date Status Note Provider Nam e and Address Organization Details Recorded Time Influenza, high-dose, trivalent, PF 5 completed Not Available [facility] 07/01/2022 06:00:33 Pneumococcal conjugate PCV 13 5 completed Not Available [facility] 07/01/2022 06:00:33 Influenza, split virus, trivalent, preservative 1 completed Not Available [facility] 07/01/2022 06:00:33 Influenza, high-dose, quadrivalent, PF 0 completed Not Available [facility] 07/01/2022 06:00:33 Influenza, split virus, quadrivalent, preservative 7 completed Not Available [facility] 07/01/2022 06:00:33 pneumococcal polysaccharide PPV23 6 completed Not Available [facility] 07/01/2022 06:00:33 Influenza, high-dose, trivalent, PF 6 completed Not Available [facility] 07/01/2022 06:00:34 influenza, unspecified formulation 0 completed Not Available [facility] 07/01/2022 06:00:34 pneumococcal polysaccharide PPV23 7 completed Not Available [facility] 07/01/2022 06:00:34 Past Encounters Encounter ID Performer Location Encounter Start Date Encounter Closed Date Diagnosis/Indication Diagnosis SNOMED-CT Code Diagnosis ICD10 Code Diagnosis IMO Codes Diagnosis Note [id number] Faby Linares NP [address] [address] 12/10/2021 00:00:00 12/10/2021 16:01:59 [id number] Justin De La Fuente MD [address] [address] 01/14/2022 00:00:00 01/15/2022 11:46:58 [id number] Faby Linares NP [address] [address] 09/30/2022 16:47:10 09/30/2022 17:53:34 Insomnia 855750726 G47.00 Zolpidem 5 mg po daily Pruritic disorder 273413 002 L29.9 Hydrocorti sone 1% topical ointment bid prn Low back pain 453334361 M54.50 lumbar support and pillow. Difficulty swallowing [address] sexton. May need gtube again or therapy for swallowing . States she has had swallow studies. Constipation 71495522 K5 9.00 likely result of not drinking as much fluids, trouble swallowing , and no gtube since fall 2021. [id number] Faby Linares NP [address] [address] 12/15/2022 11:55:01 12/15/2022 12:44:09 Adult health examination 529505846 Z00.00 Encouraged well balanced meals, active lifestyle, and routine vision and dental appts. Screening for disorder 870704803 Z13.9 discussed all with patient. Decreased body mass index 7583273 Z68.1 Discuss bmi with ent, oncologist . May need G-tube for nutrition. Pt is cold all the time. [id number] Faby Linares NP [address] [address] 03/05/2023 14:27:31 03/05/2023 15:22:31 Insomnia 177826045 G47.00 zolpidem worked, but belsomra safer. Pt states she is ok with prn use. Low back pain 080439964 M54.50 lumbar support and pillow. Difficulty swallowing [address]75[address]13[address] sexton. May need gtube again or therapy for swallowing . States she has had swallow studies. Constipation 09780113 K5 9.00 likely result of not drinking as much fluids, trouble swallowing , and no gtube since fall 2021. [id number] Justin De La Fuente MD [address] [address] 08/26/2023 14:54:22 08/26/2023 16:06:33 Hypertensive disorder 74971513 I10 Chronic insomnia 3909897 04 F51.04 History of malignant neoplasm of tongue 043946428 Z85.810 Hyperlipidemia 48055114 E78.5 Osteoarthritis 826182528 M19.90 Chest pain 92153998 R07. 9 Difficulty swallowing 28 9900707 R13.10 Diabetes m ellitus screening 002982968 Z13.1 [id number] Justin De La Fuente MD [address] [address] 11/27/2024 14:03:19 11/27/2024 14:30:21 Hypertensive disorder 76563292 I10 Chronic insomnia 7226795 04 F51.04 History of malignant neoplasm of tongue 531490347 Z85.810 Hyperlipidemia 89096755 E78.5 Osteoarthritis 528200936 M19.90 Chest pain 62899038 R07. 9 Difficulty swallowing 28 3605980 R13.10 Diabetes m ellitus screening 236071614 Z13.1 Toothache 81493646 K08.8 9 27355 Impacted c erumen of bilateral ears 2856139295 593290 H61.23 528573 Aphthous u lceration of skin and/or mucous membrane 073014121 K12.0 8044 [id number] Justin De La Fuente MD [facility] [place] [id number] 1 12/26/2024 14:00:49 12/26/2024 14:41:39 Hypertensive disorder 94050244 I10 Chronic insomnia 7756296 04 F51.04 History of malignant neoplasm of tongue 111924260 Z85.810 Hyperlipidemia 62234377 E78.5 Osteoarthritis 303172419 M19.90 Chest pain 04554085 R07. 9 Difficulty swallowing 28 2583774 R13.10 Impacted c erumen of bilateral ears 3668022020 086356 H61.23 080356 Hypothyroidism 99568518 E03.9 01281723 Health Concerns Section Related Observation LastModified by Organization Detai ls LastModified Time None Recorded Concern Status LastModified by Organization Details LastModified Time None Recorded Advance Directives Directive Y: Living Will in chart Payers Insurance Date Sequence Insurance Name Policy Number Policy Cartwright Covered Member ID Cartwright Member ID Guarantor Name 12/26/2024 [facility] (MEDICARE REPLACEMENT /ADVANTAGE - PPO) [id number] Darcy Bonilla [id number] Darcy Bonilla 12/26/2024 1 [facility] (MEDICARE REPLACEMENT /ADVANTAGE - PPO) [id number] Darcy Bonilla [id number] Darcy Bonilla 12/26/2024 1 [place] Darcy Bonilla [id number] Darcy Bonilla 12/26/2024 1 [place] [id number] Darcy Bonilla [id number] Darcy Bonilla Notes Date Note Type Note Provider Name and Address Organization Details Recorded Time 12/15/2022 text/html Here for [facility] A bit concerned about weight dropping, but seems to have leveled off.Had biopsy of gums last wednesday and awaiting results. Eating and swallowing is getting worse per patient.Doesn't have G-tube. Still only eating/drinking protein shakes. 3 daily. Went to speech therapy- had barium swallow and pt states it was ok. States she hasn't needed to use the belsomra- still has it just in case.BP stable on metoprolol Succinate ER 100 mg po daily. Still losing weight- bmi 16. Goal BMI 20. Pt would like to get weight up, but drinking 3 protein shakes is about all she can do. States eating mashed potatoes is a 'disaster'. Faby Linares NP [address], [place], [address], [facility] 12/15/2022 12:38:24 03/05/2023 text/html Here for follow up. Sleep- Waking up 2-4 times night. Does fall back to sleep. Constipation- Pain when trying to have a bm. Using glycerin suppository if not had a BM in 3 days. Still trouble swallowing. Lower back discomfort- Better with lumbar support and aleve. Ct per neck and soft tissue show severe spondylosis cervical. Mild Thoracic spondylosis. No images of lumbar. Weight- down 1 lb from last time.Has been on ensure. Max drinking 3 daily. Hard time getting to goal of 5 shakes. Some constipation but just got colace to try. Does suppository prn. Recently went to ENT [facility] and got CT head. Considered US on neck. CT done per carlie showed concern for bone marrow signal in tooth just lost. Faby Linares NP [address], [place], [address], [facility] 03/05/2023 14:56:18 08/26/2023 text/html Pt is here for her annual exam and f/u on her chronic conditions. Doing overall well. Pt has a parking placard form to be filled out for her. C/o chronic insomnia and is on med for it as needed. Pt says Belsomra is too costly for her and so she wants to switch back to Zolpidem. Denies any problem with it. Pt has h/o tongue cancer; S/p radiation and she is f/u with Oral surgeon and Onco at [facility]. Doing overall well with it. Pt has intermittent chest pain for last several months. It happens over different areas of her chest and lasts for few seconds to couple mins and then goes away without any med. No SOB/palpitations/f ever/chills/n/v with it. Pt has chronic difficulty with swallowing and had G-tube in the past. Now she is able to do only liquids. Pt has seen GI for this too. Justin De La Fuente MD [address] [facility], [address], [place], [address], [facility] 08/26/2023 15:59:13 11/27/2024 text/html Pt is here for her annual exam and f/u on her chronic conditions. Doing overall well. Last visit in 08/24. Pt was referred to Cardio last visit; but she has not seen any. C/o ulcer over her Lt side of cheek for last couple weeks. Pt has h/o tongue cancer; S/p radiation and she is f/u with Oral surgeon and Onco at [facility]. Doing overall well with it. Pt has intermittent chest pain for last several months. It happens over different areas of her chest and lasts for few seconds to couple mins and then goes away without any med. No SOB/palpitations/f ever/chills/n/v with it. Pt has chronic difficulty with swallowing and had G-tube in the past. Now she is able to do only liquids. Pt has seen GI for this too. Justin De La Fuente MD [address], [address], [place], [address], [facility] 11/27/2024 14:36:37 12/26/2024 text/html Pt is here for f/u on annual labs, b/l ear flushing. Doing overall well. Pt needs a letter of medical necessity for her to get nutritional supplements for herself. Pt will be seeing Cardio next month. Pt has h/o tongue cancer; S/p radiation and she is f/u with Oral surgeon and Onco at [facility]. Doing overall well with it. Pt has intermittent chest pain for last several months. It happens over different areas of her chest and lasts for few seconds to couple mins and then goes away without any med. No SOB/palpitations/f ever/chills/n/v with it. Pt has chronic difficulty with swallowing and had G-tube in the past. Now she is able to do only liquids. Pt has seen GI for this too. Justin De La Fuente MD [address] [facility], [facility] [address], [place], [address], [place] [facility] [place] 12/26/2024 14:26:49 OBGyn Episode No OBEpisode recorded.
[2025-03-14 15:41] LABS: Thyroid Stimulating Hormone Reflex 6.660 uIU/mL (0.465-4.68)
[2025-03-14 16:41] LABS: Free T4 Free Thyroxine Reflex 0.92 ng/dL (0.78-2.19)
[2025-03-14 17:39] LABS: Total Triiodothyronine (T3) 1.10 NG/ML (0.82-1.58)
== END 2025-03-14 14:04 | disposition home or self-care (01) ==
LOC: ANHLAB 14:06
PROVIDERS: PCP Family Medicine; Visit Provider Family Medicine
DX: E03.9 Hypothyroidism, unspecified (principal)
CPT/HCPCS: 36415; 84439; 84443; 84480